=== PATIENT | male | born 1935 | race Caucasian/White ===

== ENCOUNTER 2017-04-27 19:23 | Inpatient (IN) ==
[2017-04-27] MEDS ORDERED: methylPREDNISolone 125 MG/2 ML VIAL IVP ONE (19:46)
[2017-04-27] MEDS ORDERED: Ipratropium/Albuterol Neb 3 ML IH ONE (19:46)
--- NOTE | 2017-04-27 19:49 | Emergency Department Note ---
Disposition Clinical Impression: Acute exacerbation of chronic obstructive airways disease Congestive heart failure Qualifiers: Congestive heart failure type: unspecified congestive heart failure type Congestive heart failure chronicity: acute Qualified Code(s): I50.9 - Heart failure, unspecified Disposition: Admitted As Inpatient Condition: Fair Referrals: Glenda Benjamin DO [Primary Care Provider] - Forms: ED Satisfaction Letter Time of Disposition: 20:38 SOB HPI - General Chief Complaint: ED Shortness of Breath/Dyspnea Stated Complaint: SOB / Congestion Time Seen by Provider: 04/27/17 19:39 Source: patient Mode of arrival: ambulatory Limitations: no limitations Nursing Notes Reviewed: Yes Vital Signs Reviewed: Yes - History of Present Illness 81-year-old with history COPD comes in with a two-week history of shortness of breath. Patient saw his family doctor 2 weeks ago was started on antibiotics. He appeared to improve somewhat and then finished his antibiotics and symptoms of gotten worse. States he just does not feel well he had a cough shortness of breath. Patient has a history COPD and is oxygen dependent wears 2.5 L at home. Denies pain. Anywhere he presents now for evaluation. Pt Subjective Complaint: shortness of breath, cough Onset (ago): day(s) Context: recent illness Severity: moderate Consistency/Duration: constant Improves with: nothing Worsens with: exertion Known history of: COPD Associated symptoms: Reports: cough, wheezing. Denies: chest pain, pain with inspiration, fever Treatment prior to arrival: oxygen Cough present: Yes Cough Description: Involuntary Cough Frequency: Intermittent - Related Data Allergies Allergy/AdvReac Type Severity Reaction Status Date / Time No Known Allergies Allergy Verified 04/27/17 19:27 All systems ED: reviewed and negative except as stated. Constitutional: Denies: fever, chills, weakness, weight change Eyes: Denies: eye pain, eye discharge, vision change ENT ED: Denies: ear pain, throat pain, dental pain, hearing loss, epistaxis, congestion, dysphagia Cardiovascular: Denies: chest pain, palpitations, dyspnea on exertion, edema, syncope Respiratory: Reports: cough, dyspnea, wheezes. Denies: hemoptysis, stridor Gastrointestinal: Denies: abdominal pain, nausea, vomiting, diarrhea, constipation, hematemesis, melena, hematochezia Genitourinary: Denies: urgency, dysuria, frequency, hematuria Musculoskeletal: Denies: back pain, neck pain, arthralgia, myalgia Integumentary: Denies: rash, abrasion, lesions Neurological: Denies: headache, weakness, numbness, paresthesias, confusion, abnormal gait, vertigo Psychiatric: Denies: anxiety, depression, suicidal thoughts, homicidal thoughts , auditory hallucinations, visual hallucinations Endocrine: Denies: fatigue Hematological/Lymphatic: Denies: easy bleeding, easy bruising Allergic/Immunologic: Denies: facial swelling, urticaria Past Medical History - Past Medical History Medical history: Reports: cancer, coronary artery disease, hypertension Psychiatric history: Reports: depression - Social History Smoking Status: Current every day smoker Smokeless Tobacco Status: No Alcohol use: Reports: none Drug use: Reports: none Physical Exam - General Limitations: no limitations General appearance: alert - Head Head exam: atraumatic, normocephalic, normal inspection - Eye Eye exam: Present: normal appearance, PERRL, EOMI - ENT ENT exam: normal exam, normal oropharynx, mucous membranes moist - Neck Neck exam: Present: normal inspection, full ROM, trachea midline - Chest Chest inspection: Present: normal inspection, symmetric chest wall rise - Respiratory Respiratory exam: Present: respiratory distress, accessory muscle use, prolonged expiratory phase - Cardiovascular Cardiovascular exam: Present: regular rate, normal rhythm, normal heart sounds - Abdominal Exam Abdominal exam: Present: soft, Non-Tender. Absent: tenderness, distention, guarding, rebound, rigidity - Extremities Exam Extremities exam: Present: normal inspection, full ROM. Absent: tenderness, pedal edema - Expanded Lower Extremity Exam Neurovascular/Tendon exam: Absent: motor deficit, sensory deficit, tendon deficit - Back Exam Back exam: Present: normal inspection, full ROM. Absent: tenderness - Neurological Exam Neurological exam: Present: alert, oriented X3 Course - Reevaluation(s) Reevaluation #1: 81-year-old with history COPD comes in complaining of increasing shortness of breath. Chest x-ray shows diffuse interstitial pattern failure versus an atypical pneumonia. I reviewed a echocardiogram from this year which showed an EF of 35-40%. We will treat with both antibiotics and diuretic. She will be admitted for further evaluation. Time: 20:37 - Consultations Consultation #1: Discussed with Dr. Martinez, admit Time: 20:44 Vital Signs Temperature 97.3 F L 04/27/17 19:28 Pulse Rate 98 04/27/17 19:28 Respiratory Rate 24 04/27/17 19:28 Blood Pressure 159/77 04/27/17 19:28 O2 Sat by Pulse Oximetry 95 04/27/17 19:28 Temperature 97.3 F L 04/27/17 19:28 Pulse Rate 98 04/27/17 19:28 Respiratory Rate 22 04/27/17 20:28 Blood Pressure 159/77 04/27/17 19:28 O2 Sat by Pulse Oximetry 93 04/27/17 20:28 Oxygen Delivery Oxygen Delivery Nasal Cannula Shortness of Breath/Dyspnea - Lab Data Lab results reviewed: Yes I reviewed the patient's lab results. Result diagrams: 04/27/17 19:58 04/27/17 19:58 Lab Results 04/27/17 04/27/17 04/27/17 Range/Units 19:58 19:58 19:58 WBC 10.0 (4.3-11.1) K/mcL RBC 4.18 L (4.19-5.50) M/mcL Hgb 12.2 L (12.9-16.9) g/dL Hct 37.6 (37.5-50.1) % MCV 90.0 (83.0-100.0) fL MCH 29.2 (28.0-33.3) pg MCHC 32.4 (31.6-35.5) g/dL RDW 13.0 (11.5-14.5) % Plt Count 170 (140-400) K/mcL MPV 9.6 (9.4-12.4) fL Immature Gran % 0.3 (0-4) % Seg Neutrophils % 81.7 % Lymphocytes % 7.8 % Monocytes % 9.9 % Eosinophils % 0.1 % Basophils % 0.2 % Neutrophils # 8.2 (1.6-8.9) K/mcL Lymphocytes # 0.8 (0.6-4.6) K/mcL Monocytes # 1.0 (0.0-1.3) K/mcL Eosinophils # 0.0 (0.0-0.6) K/mcL Basophils # 0.0 (0.0-0.2) K/mcL ABG pH (7.32-7.45) pH Units ABG pCO2 (35-45) mmHg ABG pO2 (85-104) mmHg ABG HCO3 (21-27) mEq/L ABG Total CO2 (20-26) mEq/L ABG O2 Saturation (95-98) % ABG Base Excess (-2.0 to 3.0) mEq/L Liter Flow L/MIN Blood Gas Modality Sodium 137 (136-145) mEq/L Potassium 3.7 (3.5-4.5) mEq/L Chloride 101 (98-109) mEq/L Carbon Dioxide 26 (19-29) mEq/L BUN 21 (8-26) mg/dL Creatinine 0.89 (0.72-1.25) mg/dL Est GFR ( Amer) > 60 (> 60) Est GFR (Non-Af Amer) > 60 (> 60) BUN/Creatinine Ratio 24 (6-26) Glucose 157 H (70-99) mg/dL Calculated Osmolality 290 (280-300) Lactic Acid 0.9 (0.5-2.2) mmol/L Calcium 9.2 (8.6-10.8) mg/dL Troponin I (0-0.03) ng/mL B-Natriuretic Peptide (0-100) pg/mL 04/27/17 04/27/17 04/27/17 Range/Units 19:58 19:58 20:20 WBC (4.3-11.1) K/mcL RBC (4.19-5.50) M/mcL Hgb (12.9-16.9) g/dL Hct (37.5-50.1) % MCV (83.0-100.0) fL MCH (28.0-33.3) pg MCHC (31.6-35.5) g/dL RDW (11.5-14.5) % Plt Count (140-400) K/mcL MPV (9.4-12.4) fL Immature Gran % (0-4) % Seg Neutrophils % % Lymphocytes % % Monocytes % % Eosinophils % % Basophils % % Neutrophils # (1.6-8.9) K/mcL Lymphocytes # (0.6-4.6) K/mcL Monocytes # (0.0-1.3) K/mcL Eosinophils # (0.0-0.6) K/mcL Basophils # (0.0-0.2) K/mcL ABG pH 7.44 (7.32-7.45) pH Units ABG pCO2 51 H (35-45) mmHg ABG pO2 78 L (85-104) mmHg ABG HCO3 35 H (21-27) mEq/L ABG Total CO2 36 H (20-26) mEq/L ABG O2 Saturation 96 (95-98) % ABG Base Excess 9.0 H (-2.0 to 3.0) mEq/L Liter Flow 2 L/MIN Blood Gas Modality NO DATA Sodium (136-145) mEq/L Potassium (3.5-4.5) mEq/L Chloride (98-109) mEq/L Carbon Dioxide (19-29) mEq/L BUN (8-26) mg/dL Creatinine (0.72-1.25) mg/dL Est GFR ( Amer) (> 60) Est GFR (Non-Af Amer) (> 60) BUN/Creatinine Ratio (6-26) Glucose (70-99) mg/dL Calculated Osmolality (280-300) Lactic Acid (0.5-2.2) mmol/L Calcium (8.6-10.8) mg/dL Troponin I 0.01 (0-0.03) ng/mL B-Natriuretic Peptide 541 H (0-100) pg/mL - Radiology Data Radiology results reviewed: Yes I reviewed the patient's radiology results. Chest X-Ray 04/27/17 19:40 IMPRESSION: Slightly increased interstitial markings compared to the prior study, which are nonspecific, but may represent mild interstitial pulmonary edema or atypical infection. Otherwise no focal consolidation identified. D/ / 04/27/2017 20:33:31 Tank Watson MD / [facility] Interpreting Provider: Tank Watson MD - EKG Data EKG attestation: Yes I reviewed and interpreted this EKG. EKG shows normal: Reports: sinus rhythm Rate: Reports: normal Rhythm: Reports: NSR Interpretation: Reports: nonspecific ST-T wave changes
[2017-04-27 20:08] LABS: Basophils % 0.2 %; Eosinophils % 0.1 %; Hematocrit 37.6 % (37.5-50.1); Hemoglobin 12.2 g/dL (12.9-16.9); Immature Granulocytes % 0.3 % (0-4); Lymphocytes # 0.8 K/mcL (0.6-4.6); Lymphocytes % 7.8 %; Mean Corpuscular HGB Conc 32.4 g/dL (31.6-35.5); Mean Corpuscular Hemoglobin 29.2 pg (28.0-33.3); Mean Platelet Volume 9.6 fL (9.4-12.4); Monocytes % 9.9 %; Neutrophils # 8.2 K/mcL (1.6-8.9); Platelet Count 170 K/mcL (140-400); Red Blood Count 4.18 M/mcL (4.19-5.50); Segmented Neutrophils % 81.7 %
[2017-04-27] MEDS ORDERED: Azithromycin 500 MG in D5% in Water 250 ML IVPB ONE ×2 (20:19→23:00)
[2017-04-27 20:21] LABS: BUN/Creatinine Ratio 24 (6-26); Blood Urea Nitrogen 21 mg/dL (8-26); Calcium 9.2 mg/dL (8.6-10.8); Carbon Dioxide 26 mEq/L (19-29); Chloride 101 mEq/L (98-109); Glucose 157 mg/dL (70-99); Osmolality,Calculated 290 (280-300); Potassium 3.7 mEq/L (3.5-4.5); Sodium 137 mEq/L (136-145); eGFR For African Americans > 60 (> 60); eGFR For Non-African Americans > 60 (> 60)
[2017-04-27 20:31] LABS: ABG HCO3 35 mEq/L (21-27); ABG Oxygen Saturation 96 % (95-98); ABG PCO2 51 mmHg (35-45); ABG PH 7.44 pH Units (7.32-7.45); ABG PO2 78 mmHg (85-104); ABG TCO2 36 mEq/L (20-26); Blood Gas Liter Flow 2 L/MIN; Blood Gas Modality NO DATA
[2017-04-27] MEDS ORDERED: Furosemide 40 MG/4 ML VIAL IVP ONE (20:36)
--- NOTE | 2017-04-27 23:25 | Internal Med History&Physical ---
Date of Encounter: 04/27/17 Time of Encounter: 21:45 Assessment and Plan (1) Pneumonia Current visit: Yes Status: Acute Patient's chest x-ray reveals interstitial pattern, possibly suggestive of an atypical pneumonia. -Patient will be started on Zosyn, 3.375 mg. -Patient will also be given IV Solu-Medrol. -DuoNeb's as needed. -Continue to monitor vital signs. Qualifiers: Qualified Code(s): J18.9 - Pneumonia, unspecified organism (2) Congestive heart failure Current visit: Yes Status: Acute Patient's echocardiogram from earlier this year revealed an ejection fraction of 35-40%. -Patient placed on Lasix, 40 mg. Qualifiers: Congestive heart failure type: unspecified congestive heart failure type Congestive heart failure chronicity: acute Qualified Code(s): I50.9 - Heart failure, unspecified (3) Acute exacerbation of chronic obstructive airways disease Current visit: Yes Status: Acute Patient presents with shortness of breath. -Patient admits to being a heavy smoker, pack per day unknown since patient rolls his own cigarettes. -Dependent on 2.5 L of oxygen at home. Internal Medicine - H&P: HPI Chief complaint: Shortness of breath History of present illness: Mr. Chu is a 81 year old male with past medical history of COPD who presented to the ER with the chief complaint of a 2 week history of shortness of breath. Patient saw his family physician 2 weeks ago and was started on antibiotics for 5 days. He was also given steroids, 5 pills. Neither of these were effective long-term and treating the patient's shortness of breath. Patient has had a productive cough with green colored sputum. Nothing improves his condition, and his shortness of breath is worse with exertion. Patient denies having any chest pain or fever. Patient does have COPD and is oxygen dependent on 2.5 L of oxygen at home. Patient's vital signs in the emergency department were as follows: Pressure was 97.3, pulse was 98, respiratory rate was 22, blood pressure was 159/77, and O2 saturation was 93. Chest x-ray was performed in the emergency department and revealed diffuse interstitial pattern , also blue suggestive of atypical pneumonia. Ejection fraction from echocardiogram earlier this year was 35-40%. He currently denies fever, chills , nausea, vomiting, or hemoptysis. Past Med Surg Social Fam HX - Past Medical History Medical history: cancer, coronary artery disease, hypertension Psychiatric history: depression - Past Surgical History Surgical History: coronary bypass (CABG), pacemaker/AICD - Social History Smoking Status: Current every day smoker Smokeless Tobacco Status: No Alcohol use: none Drug use: none - Family History Father Living Status: Age at : 52 Hx Family Cardiac Disorders: Yes ([place]) Mother Living Status: Age at : 62 Hx Family Cardiac Disorders: Yes ([place]) Internal Medicine - H&P: Meds Albuterol Sulfate [Ventolin Hfa] 2 puff IH Q4H PRN 04/27/17 [History] Aspirin Enteric Coated [Aspirin EC] 81 mg PO DAILY 04/27/17 [History] Carvedilol [Coreg] 6.25 mg PO DAILY 04/27/17 [History] Citalopram Hydrobromide [Citalopram HBr] 20 mg PO DAILY 04/27/17 [History] Clopidogrel [Plavix] 75 mg PO DAILY 04/27/17 [History] Finasteride [Proscar] 5 mg PO DAILY 04/27/17 [History] Losartan [Cozaar] 25 mg PO DAILY 04/27/17 [History] Mirtazapine [Remeron] 30 mg PO HS 04/27/17 [History] Pravastatin Sodium [Pravachol] 40 mg PO HS 04/27/17 [History] Tamsulosin [Flomax] 0.4 mg PO DAILY 04/27/17 [History] Tiotropium [Spiriva] 18 mcg IH DAILY 04/27/17 [History] 3 Allergy/AdvReac Type Severity Reaction Status Date / Time No Known Allergies Allergy Verified 04/27/17 19:27 All Systems PM: A 10-system review of systems was performed and is negative for pertinent findings except as documented above in the HPI. - Constitutional Constitutional: no chills, no fatigue, no lethargy, no malaise, no weakness - EENT Nose, mouth and throat: no hoarseness - Cardiovascular Cardiovascular ROS IM: no chest pain, no diaphoresis, no dyspnea, no lightheadedness, no palpitations, no syncope - Respiratory Respiratory: cough, dyspnea, wheezing, chest congestion, excessive phlegm production, change in phlegm color - Constitutional Vitals: Temp Pulse Resp BP Pulse Ox 97.3 F L 98 18 118/49 93 04/27/17 19:28 04/27/17 19:28 04/27/17 22:14 04/27/17 22:14 04/27/17 20:28 - Respiratory Respiratory exam: Present: rales, rhonchi, wheezes, tachypnea. Absent: accessory muscle use, CTAB - Cardiovascular Cardiovascular exam: Present: RRR, +S1, +S2. Absent: diastolic murmur, gallop, rubs, systolic murmur - Psychiatric Psychiatric exam: Present: normal mood Internal Med - H&P Results - Labs CBC & Chem 7: 04/27/17 19:58 04/27/17 19:58
--- NOTE | 2017-04-28 00:17 | Event Note ---
Date of Encounter: 04/28/17 Time of Encounter: 00:15 Patient examined with medical tech. Acute COPD exacerbation likely due to underlying pneumonia in addition to acute congestive heart failure. mention still has increased amount of greenish sputum despite recent antibiotics. We will start Zosyn. Will also give the patient IV steroids nebulizer treatment and IV Lasix. Patient is at risk for the compensation. He is full code. Inpatient admission
[2017-04-28] MEDS: methylPREDNISolone 125 MG/2 ML VIAL IVP SCH ×5 (00:36→23:45)
[2017-04-28] MEDS: Furosemide 40 MG/4 ML VIAL IVP SCH ×2 (00:37→09:23)
[2017-04-28] MEDS: Piperacillin/Tazobactam 3.375 GM in D5% in Water (Mini-Bag+) 100 ML IVPB SCH ×4 (00:37→23:45)
[2017-04-28] MEDS ORDERED: ALPRAZolam 0.5 MG TABLET PO ONE (04:50)
[2017-04-28] MEDS: *HR* Heparin 5,000 UNIT/ML VIAL SQ SCH ×2 (05:11→17:51)
[2017-04-28] MEDS ORDERED: Aminoglycoside Consult 1 EACH MC ONE (08:32)
[2017-04-28] MEDS: Finasteride 5 MG TABLET PO SCH (09:22)
[2017-04-28] MEDS: Aspirin Enteric Coated 81 MG Tablet PO SCH (09:22)
[2017-04-28] MEDS ORDERED: 0.9 % Sodium Chloride 2,000 ML ONE (16:40)
[2017-04-28 17:02] LABS: Basophils % 0.1 %; Hematocrit 43.3 % (37.5-50.1); Immature Granulocytes % 0.4 % (0-4); Lymphocytes % 11.2 %; Mean Corpuscular Hemoglobin 29.4 pg (28.0-33.3); Mean Corpuscular Volume 88.9 fL (83.0-100.0); Monocytes # 0.3 K/mcL (0.0-1.3); Monocytes % 3.4 %; Neutrophils # 7.8 K/mcL (1.6-8.9); Platelet Count 224 K/mcL (140-400); Red Blood Count 4.87 M/mcL (4.19-5.50); Red Cell Distribution Width 12.6 % (11.5-14.5); Segmented Neutrophils % 84.9 %
[2017-04-28 17:07] LABS: Hemoglobin 14.3 g/dL (12.9-16.9)
[2017-04-28] MEDS ORDERED: 0.9 % Sodium Chloride 500 ML IVC ONE (17:08)
[2017-04-28 17:14] LABS: Calcium 10.3 mg/dL (8.6-10.8); Potassium 3.8 mEq/L (3.5-4.5)
[2017-04-28] MEDS: Nicotine 21 MG PATCH.TD24 TD SCH (17:37)
[2017-04-28] MEDS ORDERED: Vancomycin 1,250 MG in D5% in Water 250 ML IVPB ONE (18:00)
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
[2017-04-28] MEDS: Ipratropium/Albuterol Neb 3 ML IH PRN (20:11)
[2017-04-28] MEDS ORDERED: Mirtazapine 15 MG TABLET PO SCH (21:00)
[2017-04-29 03:27] LABS: Basophils % 0.1 %; Hematocrit 37.5 % (37.5-50.1); Immature Granulocytes % 0.5 % (0-4); Lymphocytes # 0.9 K/mcL (0.6-4.6); Lymphocytes % 7.4 %; Mean Corpuscular HGB Conc 33.3 g/dL (31.6-35.5); Mean Corpuscular Hemoglobin 29.1 pg (28.0-33.3); Mean Corpuscular Volume 87.4 fL (83.0-100.0); Mean Platelet Volume 10.2 fL (9.4-12.4); Monocytes # 0.5 K/mcL (0.0-1.3); Monocytes % 4.4 %; Neutrophils # 10.7 K/mcL (1.6-8.9); Platelet Count 207 K/mcL (140-400); Red Blood Count 4.29 M/mcL (4.19-5.50); Red Cell Distribution Width 12.7 % (11.5-14.5); Segmented Neutrophils % 87.6 %
[2017-04-29 03:28] LABS: Hemoglobin 12.5 g/dL (12.9-16.9)
[2017-04-29 03:30] LABS: INR 1.2
[2017-04-29 03:33] LABS: Activated Partial Thrombo Time 25.7 Seconds (26.0-36.0)
[2017-04-29 03:41] LABS: Calcium 9.4 mg/dL (8.6-10.8); Potassium 3.2 mEq/L (3.5-4.5)
[2017-04-29] MEDS ORDERED: *HR* Enoxaparin 40 MG/0.4 ML SYRINGE SQ SCH (06:00)
[2017-04-29] MEDS ORDERED: Vancomycin 1,000 MG in D5% in Water 250 ML IVPB SCH (06:00)
[2017-04-29] MEDS: methylPREDNISolone 125 MG/2 ML VIAL IVP SCH ×4 (07:30→23:52)
[2017-04-29] MEDS: Piperacillin/Tazobactam 3.375 GM in D5% in Water (Mini-Bag+) 100 ML IVPB SCH (07:53)
[2017-04-29] MEDS: Aspirin Enteric Coated 81 MG Tablet PO SCH (07:54)
[2017-04-29] MEDS: Finasteride 5 MG TABLET PO SCH (07:54)
[2017-04-29] MEDS: Nicotine 21 MG PATCH.TD24 TD SCH (07:55)
--- NOTE | 2017-04-29 10:20 | Internal Med Progress Note ---
Date of Encounter: 04/29/17 Time of Encounter: 10:18 - Assessment and plan (1) Pneumonia Current Visit: Yes Status: Acute Assessment and plan: Acute on chronic hypoxic hypercapnic respiratory failure secondary to acute COPD exacerbation due to possible atypical pneumonia Chest x-ray done on arrival shows nonspecific slightly increased interstitial markings that may represent mild pulmonary edema or atypical infection. Telemetry Continuous pulse ox O2 as needed to maintain sats greater than 92% Discontinue Zosyn and vancomycin day 3 Continue Solu-Medrol BiPAP Start Cefepime and azithromycin Qualifiers: Pneumonia type: due to unspecified organism Laterality: unspecified laterality Lung location: unspecified part of lung Qualified Code(s): J18.9 - Pneumonia, unspecified organism (2) Acute renal failure Current Visit: Yes Status: Acute Assessment and plan: Likely secondary to sepsis exacerbated by vancomycin and Zosyn Hold Lasix and start IV fluids Qualifiers: Acute renal failure type: unspecified Qualified Code(s): N17.9 - Acute kidney failure, unspecified (3) Congestive heart failure Current Visit: Yes Status: Acute Assessment and plan: Echocardiogram from September, shows LVEF of 35-40% with moderate global and segmental LV systolic dysfunction, mild MR, mild TR. BNP was elevated over 500. At this time, due to sepsis, Lasix has been held. Continue telemetry Continue to monitor labs and vital signs. Qualifiers: Congestive heart failure type: systolic Congestive heart failure chronicity : acute Qualified Code(s): I50.21 - Acute systolic (congestive) heart failure (4) Acute exacerbation of chronic obstructive airways disease Current Visit: Yes Status: Acute (5) Chronic respiratory failure Current Visit: Yes Status: Acute Assessment and plan: Pt requires supplemental 02 at 2L at home. Qualifiers: Respiratory failure complication: unspecified whether with hypoxia or hypercapnia Qualified Code(s): J96.10 - Chronic respiratory failure, unspecified whether with hypoxia or hypercapnia (6) Sepsis Current Visit: Yes Status: Acute Assessment and plan: pulse rate 110, white blood cell count 12.2 Qualifiers: Sepsis type: sepsis due to unspecified organism Qualified Code(s): A41.9 - Sepsis, unspecified organism - Subjective Interval history: Feeling short of breath, appears to be very dehydrated, denies any chest pain, abdominal pain, no dysuria or diarrhea, no fevers - Constitutional Vitals: Temp Pulse Resp BP Pulse Ox 96.7 F L 71 16 92/50 93 04/29/17 07:59 04/29/17 07:59 04/29/17 07:59 04/29/17 07:59 04/29/17 07:59 General appearance: Present: A&O X 3, underweight (Very hard of hearing) - Head Head exam: Present: atraumatic, normocephalic - Eye Eye exam: Present: PERRL, conjuntiva pink, sclera anicteric Pupils: Present: PERRL - Neck Neck exam general surgery: Present: supple, trachea midline. Absent: lymphadenopathy - Respiratory Respiratory exam: Present: CTAB, wheezes (Diffuse wheezing). Absent: accessory muscle use, rales, rhonchi - Cardiovascular Cardiovascular exam: Present: RRR, +S1, +S2. Absent: diastolic murmur, gallop, rubs, systolic murmur - GI/Abdominal GI/Abdominal exam: Present: normal bowel sounds, soft, no peritoneal signs. Absent: distended, tenderness - Extremities Exam Extremities exam: Present: warm, radial pulses palpable and symmetrical. Absent : calf tenderness, cyanotic, pedal edema - Neurological Exam Neurological exam: Present: CN II-XII intact, oriented X3, no focal deficits. Absent: pronater drift, facial droop, speech deficit - Skin Skin exam: Present: dry, intact Internal Medicine: Result - Labs CBC & Chem 7: 04/29/17 02:54 04/29/17 02:54 Labs: Short CBC 04/29/17 Range/Units 02:54 WBC 12.2 H (4.3-11.1) K/mcL Hgb 12.5 L D (12.9-16.9) g/dL Hct 37.5 (37.5-50.1) % Plt Count 207 (140-400) K/mcL Neutrophils # 10.7 H (1.6-8.9) K/mcL BMP 04/29/17 02:54 Sodium 140 Potassium 3.2 L Chloride 98 Carbon Dioxide 31 H BUN 48 H D Creatinine 1.74 H Glucose 228 H Calcium 9.4 - ABG Interpretation ABG results: ABG ABG pH 7.44 pH Units (7.32-7.45) 04/27/17 20:20 ABG pCO2 51 mmHg (35-45) H 04/27/17 20:20 ABG pO2 78 mmHg (85-104) L 04/27/17 20:20 ABG O2 Saturation 96 % (95-98) 04/27/17 20:20 PT/INR, D-dimer PT 13.0 Seconds (9.4-12.1) H 04/29/17 02:54 Consult Discharge Plan - Plan Referrals: Glenda Benjamin DO [Primary Care Provider] -
[2017-04-29] MEDS ORDERED: *HR* Dextrose 50 % in Water (Syg) 50 ML SYRINGE IVP PRN (10:24)
[2017-04-29] MEDS ORDERED: D5% in Water 1,000 ML IVC PRN (10:24)
[2017-04-29] MEDS ORDERED: Dextrose Gel 15 GM PO PRN ×2 (10:24)
[2017-04-29] MEDS: Insulin LISPRO 300 UNITS/3 ML VIAL SQ SCH ×2 (11:48→17:04)
[2017-04-29] MEDS: 0.9 % Sodium Chloride 1,000 ML IVC SCH (11:51)
[2017-04-29] MEDS: Cefepime HCl 1,000 MG in D5% in Water (Mini-Bag+) 100 ML IVPB SCH ×2 (11:56→17:06)
[2017-04-29] MEDS: Azithromycin 500 MG in D5% in Water 250 ML IVPB SCH (11:58)
--- NOTE | 2017-04-29 17:55 | Electrocardiograph Report ---
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
--- NOTE | 2017-04-29 19:05 | Electrocardiograph Report ---
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
[2017-04-30 04:48] LABS: Hematocrit 25.6 % (37.5-50.1); Mean Corpuscular HGB Conc 32.8 g/dL (31.6-35.5); Mean Corpuscular Hemoglobin 29.9 pg (28.0-33.3); Mean Corpuscular Volume 91.1 fL (83.0-100.0); Mean Platelet Volume 10.1 fL (9.4-12.4); Platelet Count 143 K/mcL (140-400); Red Blood Count 2.81 M/mcL (4.19-5.50); Red Cell Distribution Width 12.8 % (11.5-14.5)
[2017-04-30 04:58] LABS: Hemoglobin 8.4 g/dL (12.9-16.9)
[2017-04-30 05:05] LABS: BUN/Creatinine Ratio 43 (6-26); Blood Urea Nitrogen 47 mg/dL (8-26); Calcium 8.8 mg/dL (8.6-10.8); Carbon Dioxide 27 mEq/L (19-29); Chloride 107 mEq/L (98-109); Glucose 187 mg/dL (70-99); Osmolality,Calculated 309 (280-300); Potassium 3.9 mEq/L (3.5-4.5); Sodium 141 mEq/L (136-145); eGFR For African Americans > 60 (> 60); eGFR For Non-African Americans > 60 (> 60)
[2017-04-30 05:17] LABS: Hemoglobin A1C 6.2 %
[2017-04-30] MEDS ORDERED: *HR* Enoxaparin 30 MG/0.3 ML SYRINGE SQ SCH (06:00)
[2017-04-30] MEDS: methylPREDNISolone 125 MG/2 ML VIAL IVP SCH (06:20)
[2017-04-30] MEDS: Cefepime HCl 1,000 MG in D5% in Water (Mini-Bag+) 100 ML IVPB SCH ×2 (06:20→15:20)
[2017-04-30] MEDS: 0.9 % Sodium Chloride 1,000 ML IVC SCH (06:21)
[2017-04-30] MEDS: Aspirin Enteric Coated 81 MG Tablet PO SCH (08:04)
[2017-04-30] MEDS: Furosemide 40 MG/4 ML VIAL IVP SCH (08:05)
[2017-04-30] MEDS: Finasteride 5 MG TABLET PO SCH (08:06)
[2017-04-30] MEDS: Nicotine 21 MG PATCH.TD24 TD SCH (08:06)
--- NOTE | 2017-04-30 08:17 | Internal Med Progress Note ---
Date of Encounter: 04/30/17 Time of Encounter: 08:14 - Assessment and plan (1) Pneumonia Current Visit: Yes Status: Acute Assessment and plan: Acute on chronic hypoxic hypercapnic respiratory failure secondary to acute COPD exacerbation due to possible atypical pneumonia Chest x-ray done on arrival showed nonspecific slightly increased interstitial markings that may represent mild pulmonary edema or atypical infection. CT scan of the chest showed possible early pneumonia with nodular infiltrates in the right middle lobe and small bilateral pleural effusions Telemetry Continuous pulse ox O2 as needed to maintain sats greater than 92% Discontinued Zosyn and vancomycin day 3 Continue Solu-Medrol BiPAP Continue Cefepime and azithromycin day to Qualifiers: Pneumonia type: due to unspecified organism Laterality: unspecified laterality Lung location: unspecified part of lung Qualified Code(s): J18.9 - Pneumonia, unspecified organism (2) Acute renal failure Current Visit: Yes Status: Acute Assessment and plan: Likely secondary to sepsis exacerbated by vancomycin and Zosyn Hold Lasix and discontinue IV fluids Qualifiers: Acute renal failure type: unspecified Qualified Code(s): N17.9 - Acute kidney failure, unspecified (3) Congestive heart failure Current Visit: Yes Status: Acute Assessment and plan: Echocardiogram from September, shows LVEF of 35-40% with moderate global and segmental LV systolic dysfunction, mild MR, mild TR. BNP was elevated over 500. At this time, due to sepsis, Lasix has been held. Continue telemetry Continue to monitor labs and vital signs. Continue holding Lasix for now Qualifiers: Congestive heart failure type: systolic Congestive heart failure chronicity : acute Qualified Code(s): I50.21 - Acute systolic (congestive) heart failure (4) Acute exacerbation of chronic obstructive airways disease Current Visit: Yes Status: Acute (5) Chronic respiratory failure Current Visit: Yes Status: Acute Assessment and plan: Pt requires supplemental 02 at 2L at home. Qualifiers: Respiratory failure complication: unspecified whether with hypoxia or hypercapnia Qualified Code(s): J96.10 - Chronic respiratory failure, unspecified whether with hypoxia or hypercapnia (6) Sepsis Current Visit: Yes Status: Acute Assessment and plan: pulse rate 110, white blood cell count 12.2 Qualifiers: Sepsis type: sepsis due to unspecified organism Qualified Code(s): A41.9 - Sepsis, unspecified organism (7) Anemia Current Visit: Yes Status: Acute Assessment and plan: Possible lab error versus dilutional anemia Repeat H&H Qualifiers: Anemia type: iron deficiency Iron deficiency anemia type: unspecified iron deficiency Qualified Code(s): D50.9 - Iron deficiency anemia, unspecified - Subjective Interval history: Feeling less short of breath, appears to be less dehydrated, denies any chest pain, abdominal pain, no dysuria or diarrhea, no fevers, still requiring 6 L of oxygen - Constitutional Vitals: Temp Pulse Resp BP Pulse Ox 97.5 F L 76 20 153/84 96 04/30/17 07:45 04/30/17 07:45 04/30/17 07:45 04/30/17 04:29 04/30/17 07:45 General appearance: Present: A&O X 3, underweight (Very hard of hearing) - Head Head exam: Present: atraumatic, normocephalic - Eye Eye exam: Present: PERRL, conjuntiva pink, sclera anicteric Pupils: Present: PERRL - Neck Neck exam general surgery: Present: supple, trachea midline. Absent: lymphadenopathy - Respiratory Respiratory exam: Present: CTAB, wheezes (Mild diffuse wheezing). Absent: accessory muscle use, rales, rhonchi - Cardiovascular Cardiovascular exam: Present: RRR, +S1, +S2. Absent: diastolic murmur, gallop, rubs, systolic murmur - GI/Abdominal GI/Abdominal exam: Present: normal bowel sounds, soft, no peritoneal signs. Absent: distended, tenderness - Extremities Exam Extremities exam: Present: warm, radial pulses palpable and symmetrical. Absent : calf tenderness, cyanotic, pedal edema - Neurological Exam Neurological exam: Present: CN II-XII intact, oriented X3, no focal deficits. Absent: pronater drift, facial droop, speech deficit - Skin Skin exam: Present: dry, intact Internal Medicine: Result - Labs CBC & Chem 7: 04/30/17 04:09 04/30/17 04:09 Labs: Short CBC 04/30/17 Range/Units 04:09 WBC 10.8 (4.3-11.1) K/mcL Hgb 8.4 L D (12.9-16.9) g/dL Hct 25.6 L (37.5-50.1) % Plt Count 143 (140-400) K/mcL BMP 04/30/17 04:09 Sodium 141 Potassium 3.9 Chloride 107 Carbon Dioxide 27 BUN 47 H Creatinine 1.10 Glucose 187 H Calcium 8.8 - ABG Interpretation ABG results: ABG ABG pH 7.44 pH Units (7.32-7.45) 04/27/17 20:20 ABG pCO2 51 mmHg (35-45) H 04/27/17 20:20 ABG pO2 78 mmHg (85-104) L 04/27/17 20:20 ABG O2 Saturation 96 % (95-98) 04/27/17 20:20 PT/INR, D-dimer PT 13.0 Seconds (9.4-12.1) H 04/29/17 02:54 - Impressions Impressions Chest CT 04/29/17 10:16 IMPRESSION: 1. Nodular infiltrates noted in the right middle lobe, concerning for early pneumonia. 2. Small bilateral pleural effusions with atelectasis in the lung bases. 3. Extensive atherosclerotic disease. D/ / 04/29/2017 11:40:46 Bull Braun MD / Ofelia Marshall Interpreting Provider: Bull Braun MD Consult Discharge Plan - Plan Referrals: Glenda Benjamin DO [Primary Care Provider] -
[2017-04-30] MEDS: MethylPREDNISolone 40 MG/ML VIAL IVP SCH ×3 (09:56→20:28)
[2017-04-30] MEDS: Azithromycin 500 MG in D5% in Water 250 ML IVPB SCH (10:02)
[2017-04-30] MEDS: Insulin LISPRO 300 UNITS/3 ML VIAL SQ SCH ×3 (10:33→16:30)
[2017-04-30] MEDS: Ipratropium/Albuterol Neb 3 ML IH PRN (11:55)
[2017-04-30 14:15] LABS: Hematocrit 37.9 % (37.5-50.1)
[2017-04-30 14:16] LABS: Hemoglobin 12.7 g/dL (12.9-16.9)
[2017-05-01] MEDS: Cefepime HCl 1,000 MG in D5% in Water (Mini-Bag+) 100 ML IVPB SCH (05:30)
[2017-05-01 05:55] LABS: Hematocrit 36.2 % (37.5-50.1); Hemoglobin 12.5 g/dL (12.9-16.9); Mean Corpuscular HGB Conc 34.5 g/dL (31.6-35.5); Mean Corpuscular Hemoglobin 30.6 pg (28.0-33.3); Mean Corpuscular Volume 88.7 fL (83.0-100.0); Mean Platelet Volume 9.7 fL (9.4-12.4); Platelet Count 214 K/mcL (140-400); Red Blood Count 4.08 M/mcL (4.19-5.50)
[2017-05-01 05:57] LABS: BUN/Creatinine Ratio 45 (6-26); Blood Urea Nitrogen 39 mg/dL (8-26); Calcium 9.2 mg/dL (8.6-10.8); Carbon Dioxide 31 mEq/L (19-29); Chloride 104 mEq/L (98-109); Glucose 173 mg/dL (70-99); Osmolality,Calculated 314 (280-300); Potassium 3.6 mEq/L (3.5-4.5); Sodium 145 mEq/L (136-145); eGFR For African Americans > 60 (> 60); eGFR For Non-African Americans > 60 (> 60)
[2017-05-01] MEDS: Furosemide 40 MG/4 ML VIAL IVP SCH (07:47)
[2017-05-01] MEDS: Finasteride 5 MG TABLET PO SCH (07:47)
[2017-05-01] MEDS: Nicotine 21 MG PATCH.TD24 TD SCH (07:48)
[2017-05-01] MEDS: MethylPREDNISolone 40 MG/ML VIAL IVP SCH (07:49)
[2017-05-01] MEDS: Insulin LISPRO 300 UNITS/3 ML VIAL SQ SCH ×2 (07:51→11:08)
[2017-05-01 10:28] VITALS: BP 138/84
[2017-05-01] MEDS: Azithromycin 500 MG in D5% in Water 250 ML IVPB SCH (11:40)
--- NOTE | 2017-05-01 15:04 | Discharge Summary ---
Date of Encounter: 05/01/17 Time of Encounter: 15:04 - Discharge Diagnosis (1) Pneumonia Priority: Primary Status: Acute Comments: Acute on chronic hypoxic hypercapnic respiratory failure secondary to acute COPD exacerbation due to sepsis from possible atypical pneumonia Qualifiers: Pneumonia type: due to unspecified organism Laterality: unspecified laterality Lung location: unspecified part of lung Qualified Code(s): J18.9 - Pneumonia, unspecified organism (2) Acute renal failure Priority: Primary Status: Acute Comments: Likely secondary to sepsis exacerbated by vancomycin and Zosyn Qualifiers: Acute renal failure type: unspecified Qualified Code(s): N17.9 - Acute kidney failure, unspecified (3) Congestive heart failure Priority: Secondary Status: Acute Qualifiers: Congestive heart failure type: systolic Congestive heart failure chronicity : acute Qualified Code(s): I50.21 - Acute systolic (congestive) heart failure (4) Acute exacerbation of chronic obstructive airways disease Priority: Primary Status: Acute (5) Chronic respiratory failure Priority: Secondary Status: Acute Qualifiers: Respiratory failure complication: unspecified whether with hypoxia or hypercapnia Qualified Code(s): J96.10 - Chronic respiratory failure, unspecified whether with hypoxia or hypercapnia (6) Sepsis Priority: Primary Status: Acute Qualifiers: Sepsis type: sepsis due to unspecified organism Qualified Code(s): A41.9 - Sepsis, unspecified organism (7) Anemia Priority: Secondary Status: Acute Qualifiers: Anemia type: iron deficiency Iron deficiency anemia type: unspecified iron deficiency Qualified Code(s): D50.9 - Iron deficiency anemia, unspecified (8) Systolic CHF Priority: Secondary Status: Acute Qualifiers: Congestive heart failure chronicity: chronic Qualified Code(s): I50.22 - Chronic systolic (congestive) heart failure - Discharge Medications Prescriptions: Furosemide [Lasix] 20 mg PO DAILY #30 tablet Potassium Chloride 8 meq PO DAILY #30 tablet.er predniSONE [PredniSONE] 10 mg PO DAILY 12 Days tablet Home Medications: Albuterol Sulfate [Ventolin Hfa] 2 puff IH Q4H PRN 04/27/17 [History] Aspirin Enteric Coated [Aspirin EC] 81 mg PO DAILY 04/27/17 [History] Carvedilol [Coreg] 6.25 mg PO DAILY 04/27/17 [History] Citalopram Hydrobromide [Citalopram HBr] 20 mg PO DAILY 04/27/17 [History] Clopidogrel [Plavix] 75 mg PO DAILY 04/27/17 [History] Finasteride [Proscar] 5 mg PO DAILY 04/27/17 [History] Losartan [Cozaar] 25 mg PO DAILY 04/27/17 [History] Mirtazapine [Remeron] 30 mg PO HS 04/27/17 [History] Pravastatin Sodium [Pravachol] 40 mg PO HS 04/27/17 [History] Tamsulosin [Flomax] 0.4 mg PO DAILY 04/27/17 [History] Tiotropium [Spiriva] 18 mcg IH DAILY 04/27/17 [History] Furosemide [Lasix] 20 mg PO DAILY #30 tablet 05/01/17 [Rx] Potassium Chloride 8 meq PO DAILY #30 tablet.er 05/01/17 [Rx] predniSONE [PredniSONE] 10 mg PO DAILY 12 Days tablet 05/01/17 [Rx] Allergies/Adverse Reactions: 3 Allergy/AdvReac Type Severity Reaction Status Date / Time No Known Allergies Allergy Verified 04/27/17 19:27 Procedures/tests Complete & Pending: Procedures Performed prior 72 hours Category Date Time Status CT chest wo con [CT] Stat Cat Scan 04/29/17 10:16 Completed ECG 12 lead ECG [ECG] Routine Y 04/28/17 18:48 Completed Date of admission: 04/28/17 18:00 Primary care physician: Selam Almendarez Consults: 04/30/17 11:37 Consult to Physical Therapy [CONS] Routine Comment: Evaluate, develop and implement POC Reason for Consult: lives home alone, weakness OT [Consult to Occupational Therapy] [CONS] Routine Comment: Evaluate, develop and implement POC Reason for Consult: lives home alone, weakness - Patient Status Disposition: Home Health Service Condition: Fair Overall status at discharge: patient is back to baseline - Discharge Instructions Follow Up With: Glenda Benjamin DO [Primary Care Provider] - 05/08/17 1:45 pm (SENT WEB REQUEST ON 04-30-17 @ 2552 TO SEE IF WE COULD CHANGE FROM OV TO FU) Additional Instructions: Follow-up with primary care physician within the next 7 days. Continue Lasix 20 mg daily with potassium supplements. Taper prednisone. Continue oxygen at home - Diet and Activity Activity: increase activity as tolerated, wear oxygen at all times Diet: low fat, low cholesterol Hospital course: Mr. Chu is a 81 year old male with past medical history of COPD O 2 dep, tobacco abuse, systolic CHF, CAD, hypertension, who presented to the ER with the chief complaint of a 2 week history of shortness of breath. Patient saw his family physician 2 weeks prior to admission and was started on antibiotics for 5 days. He was also given steroids, 5 pills. Neither of these were effective long-term and treating the patient's shortness of breath. Patient has had a productive cough with green colored sputum. Nothing improved his condition, and his shortness of breath was worse with exertion. Patient denied having any chest pain or fever. Patient does have COPD and is oxygen dependent on 2.5 L of oxygen at home. Chest x-ray was performed in the emergency department and revealed diffuse interstitial pattern, also blue suggestive of atypical pneumonia. Ejection fraction from echocardiogram earlier this year was 35-40%. ABG showed a pH of 7.44 PCO2 of 51 and a PO2 of 78. The patient was started on Zosyn and vancomycin which were discontinued as his creatinine increased to 1.74, he was started on cefepime and azithromycin the latest to cover atypical pneumonia. The patient has improved considerably, his creatinine is 0.87, also he was started on Lasix IV 40 mg daily, potassium was repleted. Patient was given the option to stay an additional day but he feels much better and is ready to go home. Completed 5 days of azithromycin and 3 days of cefepime. Time spent discussing smoking cessation with patient: 3 to 10 minutes - Time Spent with Patient Total time spent providing and/or coordinating discharge services: Greater than 30 minutes (40 min) - Constitutional Vitals: Temp Pulse Resp BP Pulse Ox 97.8 F 68 22 138/84 99 05/01/17 08:00 05/01/17 13:54 05/01/17 10:25 05/01/17 10:25 05/01/17 10:25 General appearance: Present: A&O X 3, underweight (Very hard of hearing) - Head Head exam: Present: atraumatic, normocephalic - Eye Eye exam: Present: PERRL, conjuntiva pink, sclera anicteric Pupils: Present: PERRL - Neck Neck exam general surgery: Present: supple, trachea midline. Absent: lymphadenopathy - Respiratory Respiratory exam: Present: decreased breath sounds, CTAB. Absent: accessory muscle use, rales, rhonchi, wheezes - Cardiovascular Cardiovascular exam: Present: RRR, +S1, +S2. Absent: diastolic murmur, gallop, rubs, systolic murmur - GI/Abdominal GI/Abdominal exam: Present: normal bowel sounds, soft, no peritoneal signs. Absent: distended, tenderness - Extremities Exam Extremities exam: Present: warm, radial pulses palpable and symmetrical. Absent : calf tenderness, cyanotic, pedal edema - Neurological Exam Neurological exam: Present: CN II-XII intact, oriented X3, no focal deficits. Absent: pronater drift, facial droop, speech deficit - Skin Skin exam: Present: dry, intact - VTE Documentation of Mechanical Device: Intermittent pneumatic compression device
--- NOTE | 2017-05-01 15:21 | Physician Discharge Referral ---
Home Health/Hosp Referral Info Transfer to: Home Health Provider in Charge Post Discharge: PCP - Diagnosis (1) Pneumonia Status: Acute (2) Acute renal failure Status: Acute (3) Congestive heart failure Status: Acute (4) Acute exacerbation of chronic obstructive airways disease Status: Acute (5) Chronic respiratory failure Status: Acute (6) Sepsis Status: Acute (7) Anemia Status: Acute (8) Systolic CHF Status: Acute - Respiratory Orders Oxygen / L per min (2.5 L/m) Smoking Cessation: Smoking cessation has been advised. For more information, call the [place] Tobacco Quit Line at 7-252-KIMA-NOW. - Diet/Nutrition Diet/Nutrition Orders: No Added Salt (PUNEET) - Activity Activity: List: Follow-up with primary care physician within the next 7 days. Continue Lasix 20 mg daily with potassium supplements. Taper prednisone. Continue oxygen at home - Services Needed Following services are medically necessary services: Physical Therapy - Transfer Medications Prescriptions: Furosemide [Lasix] 20 mg PO DAILY #30 tablet Potassium Chloride 8 meq PO DAILY #30 tablet.er predniSONE [PredniSONE] 10 mg PO DAILY 12 Days tablet Home Medications: Albuterol Sulfate [Ventolin Hfa] 2 puff IH Q4H PRN 04/27/17 [History] Aspirin Enteric Coated [Aspirin EC] 81 mg PO DAILY 04/27/17 [History] Carvedilol [Coreg] 6.25 mg PO DAILY 04/27/17 [History] Citalopram Hydrobromide [Citalopram HBr] 20 mg PO DAILY 04/27/17 [History] Clopidogrel [Plavix] 75 mg PO DAILY 04/27/17 [History] Finasteride [Proscar] 5 mg PO DAILY 04/27/17 [History] Losartan [Cozaar] 25 mg PO DAILY 04/27/17 [History] Mirtazapine [Remeron] 30 mg PO HS 04/27/17 [History] Pravastatin Sodium [Pravachol] 40 mg PO HS 04/27/17 [History] Tamsulosin [Flomax] 0.4 mg PO DAILY 04/27/17 [History] Tiotropium [Spiriva] 18 mcg IH DAILY 04/27/17 [History] Furosemide [Lasix] 20 mg PO DAILY #30 tablet 05/01/17 [Rx] Potassium Chloride 8 meq PO DAILY #30 tablet.er 05/01/17 [Rx] predniSONE [PredniSONE] 10 mg PO DAILY 12 Days tablet 05/01/17 [Rx] Allergies/Adverse Reactions: 3 Allergy/AdvReac Type Severity Reaction Status Date / Time No Known Allergies Allergy Verified 04/27/17 19:27 Certification: Further, I certify that my clinical findings support that this patient is homebound (i.e. absences from home require considerable and taxing effort and are for medical reasons or latter-day services or infrequently or short duration when for other reasons) because: Homebound Reason: Patient requires assistance of a person or device to safely leave home Attestation: My signature below is to certify that this patient is under my care and that I, or nurse practitioner, or a physician's assistant vice president working with me, has a face-to -face encounter with this patient.
[2017-05-02] MEDS ORDERED: Azithromycin 250 MG TABLET PO SCH (09:00)
== END 2017-05-01 16:39 | disposition home health service (06) | DRG 871 ==
LOC: EMEROO 19:23 → 3BNU 19:23 → 2NNU 04-28 17:23 → SUATTDRO 04-28 18:00
PROVIDERS: ADMIT Registered Nurse; ATTEND Internal Medicine

== ENCOUNTER 2017-11-16 14:34 | Inpatient (IN) ==
[2017-11-16] MEDS ORDERED: Ipratropium/Albuterol Neb 3 ML IH ONE ×2 (14:44→16:05)
--- NOTE | 2017-11-16 14:51 | Emergency Department Note ---
Disposition Clinical Impression: COPD exacerbation, Cardiac enzymes elevated Pneumonia Qualifiers: Pneumonia type: due to unspecified organism Laterality: left Lung location: lower lobe of lung Qualified Code(s): J18.1 - Lobar pneumonia, unspecified organism Disposition: Admitted As Inpatient Condition: Fair Referrals: Glenda Benjamin DO [Primary Care Provider] - Forms: ED Satisfaction Letter Time of Disposition: 16:08 SOB HPI - General Chief Complaint: ED Weakness Time Seen by Provider: 11/16/17 14:42 Source: EMS Mode of arrival: EMS Limitations: no limitations Nursing Notes Reviewed: Yes Vital Signs Reviewed: Yes - History of Present Illness 81-year-old whose had progressive dyspnea and generalized weakness for the last week. He went to his doctor's office for an appointment but apparently he was about 5 or 10 minutes late and they would not see him. Comes up gotten progressively worse. Pt Subjective Complaint: shortness of breath Onset (ago): day(s) Context: recent illness Severity: moderate Consistency/Duration: constant Improves with: nothing Worsens with: exertion Known history of: COPD Associated symptoms: Reports: other (Generalized weakness) Cough Frequency: Intermittent - Related Data Home Medications Medication Instructions Recorded Confirmed Albuterol Sulfate [Ventolin Hfa] 2 puff IH Q4H PRN 04/27/17 04/27/17 Aspirin Enteric Coated [Aspirin EC] 81 mg PO DAILY 04/27/17 04/27/17 Carvedilol [Coreg] 6.25 mg PO DAILY 04/27/17 04/27/17 Citalopram Hydrobromide 20 mg PO DAILY 04/27/17 04/27/17 [Citalopram HBr] Clopidogrel [Plavix] 75 mg PO DAILY 04/27/17 04/27/17 Finasteride [Proscar] 5 mg PO DAILY 04/27/17 04/27/17 Losartan [Cozaar] 25 mg PO DAILY 04/27/17 04/27/17 Mirtazapine [Remeron] 30 mg PO HS 04/27/17 04/27/17 Pravastatin Sodium [Pravachol] 40 mg PO HS 04/27/17 04/27/17 Tamsulosin [Flomax] 0.4 mg PO DAILY 04/27/17 04/27/17 Tiotropium [Spiriva] 18 mcg IH DAILY 04/27/17 04/27/17 Previous Rx's Medication Instructions Recorded Furosemide [Lasix] 20 mg PO DAILY #30 tablet 05/01/17 Potassium Chloride 8 meq PO DAILY #30 tablet.er 05/01/17 predniSONE [PredniSONE] 10 mg PO DAILY 12 Days tablet 05/01/17 Ondansetron ODT [Zofran ODT] 4 mg SL Q4HR PRN #6 tab.rapdis 11/08/17 Allergies Allergy/AdvReac Type Severity Reaction Status Date / Time No Known Allergies Allergy Verified 11/08/17 18:00 All systems ED: reviewed and negative except as stated. Constitutional: Denies: fever, chills, weakness, weight change Eyes: Denies: eye pain, eye discharge, vision change ENT ED: Denies: ear pain, throat pain, dental pain, hearing loss, epistaxis, congestion, dysphagia Cardiovascular: Denies: chest pain, palpitations, dyspnea on exertion, edema, syncope Respiratory: Reports: cough, dyspnea. Denies: wheezes, hemoptysis, stridor Gastrointestinal: Denies: abdominal pain, nausea, vomiting, diarrhea, constipation, hematemesis, melena, hematochezia Genitourinary: Denies: urgency, dysuria, frequency, hematuria Musculoskeletal: Denies: back pain, neck pain, arthralgia, myalgia Integumentary: Denies: rash, abrasion, lesions Neurological: Denies: headache, weakness, numbness, paresthesias, confusion, abnormal gait, vertigo Psychiatric: Denies: anxiety, depression, suicidal thoughts, homicidal thoughts , auditory hallucinations, visual hallucinations Endocrine: Denies: fatigue Hematological/Lymphatic: Denies: easy bleeding, easy bruising Allergic/Immunologic: Denies: facial swelling, urticaria Past Medical History - Past Medical History Medical history: Reports: COPD, coronary artery disease, dementia, hypertension Surgical history: Reports: coronary bypass (CABG), pacemaker/AICD Psychiatric history: Reports: depression - Social History Smoking Status: Current every day smoker Smokeless Tobacco Status: No Alcohol use: Reports: occasionally Drug use: Reports: none Physical Exam - General Limitations: no limitations General appearance: alert, in no apparent distress - Head Head exam: atraumatic, normocephalic, normal inspection - Eye Eye exam: Present: normal appearance, PERRL, EOMI - ENT ENT exam: normal exam, normal oropharynx, mucous membranes moist - Neck Neck exam: Present: normal inspection, full ROM, trachea midline - Chest Chest inspection: Present: normal inspection, symmetric chest wall rise - Respiratory Respiratory exam: Present: wheezes, prolonged expiratory phase - Cardiovascular Cardiovascular exam: Present: regular rate, normal rhythm, normal heart sounds - Abdominal Exam Abdominal exam: Present: soft, Non-Tender. Absent: tenderness, distention, guarding, rebound, rigidity - Extremities Exam Extremities exam: Present: normal inspection, full ROM. Absent: tenderness, pedal edema - Expanded Lower Extremity Exam Neurovascular/Tendon exam: Absent: motor deficit, sensory deficit, tendon deficit Gait: observed and normal - Back Exam Back exam: Present: normal inspection, full ROM. Absent: tenderness - Neurological Exam Neurological exam: Present: alert, oriented X3 - Psychiatric Psychiatric exam: Present: normal affect, normal mood - Skin Skin exam: Present: warm, dry, intact, normal color Course - Reevaluation(s) Reevaluation #1: 81-year-old who comes in with cough congestion generalized weakness history COPD. Workup here shows a left lower lobe infiltrate. Lactate is normal vitals are stable. Patient will be admitted. Time: 16:05 - Consultations Consultation #1: Discussed with , admit. Time: 16:25 Vital Signs Temperature 98.3 F 11/16/17 14:37 Pulse Rate 84 11/16/17 14:37 Respiratory Rate 20 11/16/17 14:37 Blood Pressure 122/60 11/16/17 14:37 O2 Sat by Pulse Oximetry 91 11/16/17 14:37 Temperature 98.3 F 11/16/17 14:37 Pulse Rate 84 11/16/17 14:37 Respiratory Rate 20 11/16/17 16:11 Blood Pressure 122/60 11/16/17 14:37 O2 Sat by Pulse Oximetry 90 11/16/17 16:11 Oxygen Delivery Oxygen Delivery Nasal Cannula Shortness of Breath/Dyspnea - Lab Data Lab results reviewed: Yes I reviewed the patient's lab results. Result diagrams: 11/16/17 14:43 11/16/17 14:43 Lab Results 11/16/17 11/16/17 11/16/17 Range/Units 14:43 14:43 14:43 WBC 8.3 (4.3-11.1) K/mcL RBC 3.69 L (4.19-5.50) M/mcL Hgb 11.0 L (12.9-16.9) g/dL Hct 33.3 L (37.5-50.1) % MCV 90.2 (83.0-100.0) fL MCH 29.8 (28.0-33.3) pg MCHC 33.0 (31.6-35.5) g/dL RDW 14.3 (11.5-14.5) % Plt Count 202 (140-400) K/mcL MPV 9.7 (9.4-12.4) fL Immature Gran % 0.4 (0-4) % Seg Neutrophils % 67.4 % Lymphocytes % 14.9 % Monocytes % 17.2 % Eosinophils % 0.0 % Basophils % 0.1 % Neutrophils # 5.6 (1.6-8.9) K/mcL Lymphocytes # 1.2 (0.6-4.6) K/mcL Monocytes # 1.4 H (0.0-1.3) K/mcL Eosinophils # 0.0 (0.0-0.6) K/mcL Basophils # 0.0 (0.0-0.2) K/mcL Sodium 138 (136-145) mEq/L Potassium 3.4 L (3.5-5.1) mEq/L Chloride 105 (98-107) mEq/L Carbon Dioxide 25 (23-29) mEq/L BUN 26 H (8-23) mg/dL Creatinine 0.81 (0.70-1.30) mg/dL Est GFR ( Amer) > 60 (> 60) Est GFR (Non-Af Amer) > 60 (> 60) BUN/Creatinine Ratio 32 H (6-26) Glucose 124 H (70-105) mg/dL Calculated Osmolality 292 (280-300) Lactic Acid 0.7 (0.5-2.2) mmol/L Calcium 8.2 L (8.6-10.3) mg/dL Troponin I 0.04 H* (< 0.04) ng/mL Urine Color (Yellow) Urine Clarity (Clear) Urine pH (5.0-8.0) pH Units Ur Specific [place] (1.010-1.025) Urine Protein (Neg-Trace) mg/dL Urine Glucose (UA) (Normal) mg/dL Urine Ketones (Negative) mg/dL Urine Blood (Negative) Urine Nitrite (Negative) Urine Bilirubin (Negative) Urine Urobilinogen (Normal) mg/dL Ur Leukocyte Esterase (Negative) Urine Microscopic RBC (0-3) per hpf Urine Microscopic WBC (0-3) per hpf Ur Squamous Epith Cells (None-Few) per lpf Urine Bacteria (None-Few) per hpf Hyaline Casts (None-Few) per lpf Ur Culture Indicated? (NO) 11/16/17 Range/Units 15:24 WBC (4.3-11.1) K/mcL RBC (4.19-5.50) M/mcL Hgb (12.9-16.9) g/dL Hct (37.5-50.1) % MCV (83.0-100.0) fL MCH (28.0-33.3) pg MCHC (31.6-35.5) g/dL RDW (11.5-14.5) % Plt Count (140-400) K/mcL MPV (9.4-12.4) fL Immature Gran % (0-4) % Seg Neutrophils % % Lymphocytes % % Monocytes % % Eosinophils % % Basophils % % Neutrophils # (1.6-8.9) K/mcL Lymphocytes # (0.6-4.6) K/mcL Monocytes # (0.0-1.3) K/mcL Eosinophils # (0.0-0.6) K/mcL Basophils # (0.0-0.2) K/mcL Sodium (136-145) mEq/L Potassium (3.5-5.1) mEq/L Chloride (98-107) mEq/L Carbon Dioxide (23-29) mEq/L BUN (8-23) mg/dL Creatinine (0.70-1.30) mg/dL Est GFR ( Amer) (> 60) Est GFR (Non-Af Amer) (> 60) BUN/Creatinine Ratio (6-26) Glucose (70-105) mg/dL Calculated Osmolality (280-300) Lactic Acid (0.5-2.2) mmol/L Calcium (8.6-10.3) mg/dL Troponin I (< 0.04) ng/mL Urine Color Dark Yellow (Yellow) Urine Clarity Clear (Clear) Urine pH 5.5 (5.0-8.0) pH Units Ur Specific [place] 1.027 H (1.010-1.025) Urine Protein 30 H (Neg-Trace) mg/dL Urine Glucose (UA) Normal (Normal) mg/dL Urine Ketones Trace H (Negative) mg/dL Urine Blood Negative (Negative) Urine Nitrite Negative (Negative) Urine Bilirubin Small H (Negative) Urine Urobilinogen Normal (Normal) mg/dL Ur Leukocyte Esterase Negative (Negative) Urine Microscopic RBC 0-3 (0-3) per hpf Urine Microscopic WBC 0-3 (0-3) per hpf Ur Squamous Epith Cells Many H (None-Few) per lpf Urine Bacteria None Seen (None-Few) per hpf Hyaline Casts None Seen (None-Few) per lpf Ur Culture Indicated? NO (NO) - Radiology Data Radiology results reviewed: Yes I reviewed the patient's radiology results. Chest X-Ray 11/16/17 14:43 IMPRESSION: Left lower lobe infiltrate possibly representing pneumonia D/ / Frederick Vigil MD / Frederick Vigil MD Interpreting Provider: Frederick Vigil MD - EKG Data EKG attestation: Yes I reviewed and interpreted this EKG. Rate: Reports: tachycardia Rhythm: Reports: A.Fib [place]/QRS: Reports: normal Interpretation: Reports: nonspecific ST-T wave changes
[2017-11-16 15:25] LABS: Basophils % 0.1 %; Hematocrit 33.3 % (37.5-50.1); Immature Granulocytes % 0.4 % (0-4); Lymphocytes # 1.2 K/mcL (0.6-4.6); Lymphocytes % 14.9 %; Mean Corpuscular Hemoglobin 29.8 pg (28.0-33.3); Mean Corpuscular Volume 90.2 fL (83.0-100.0); Mean Platelet Volume 9.7 fL (9.4-12.4); Monocytes # 1.4 K/mcL (0.0-1.3); Monocytes % 17.2 %; Neutrophils # 5.6 K/mcL (1.6-8.9); Platelet Count 202 K/mcL (140-400); Red Blood Count 3.69 M/mcL (4.19-5.50); Red Cell Distribution Width 14.3 % (11.5-14.5); Segmented Neutrophils % 67.4 %
[2017-11-16 15:32] LABS: Bilirubin,Urine Small (Negative); Blood,Urine Negative (Negative); Color,Urine Dark Yellow (Yellow); Glucose,Urine (UA) Normal (Normal); Ketones,Urine Trace mg/dL (Negative); Leukocyte Esterase,Urine Negative (Negative); Nitrite,Urine Negative (Negative); PH,Urine 5.5 pH Units (5.0-8.0); Protein,Urine 30 mg/dL (Neg-Trace); Specific Gravity,Urine 1.027 (1.010-1.025); Urobilinogen,Urine Normal (Normal)
[2017-11-16 15:33] LABS: Bacteria,Urine None Seen per hpf (None-Few); Hyaline Casts,Urine None Seen per lpf (None-Few); RBC,Urine 0-3 per hpf (0-3); Squamous Epithelial Cell,Urine Many per lpf (None-Few); WBC,Urine 0-3 per hpf (0-3)
[2017-11-16 15:34] LABS: Clarity,Urine Clear (Clear)
[2017-11-16 15:47] LABS: BUN/Creatinine Ratio 32 (6-26); Blood Urea Nitrogen 26 mg/dL (8-23); Calcium 8.2 mg/dL (8.6-10.3); Carbon Dioxide 25 mEq/L (23-29); Chloride 105 mEq/L (98-107); Glucose 124 mg/dL (70-105); Osmolality,Calculated 292 (280-300); Potassium 3.4 mEq/L (3.5-5.1); Sodium 138 mEq/L (136-145); eGFR For African Americans > 60 (> 60); eGFR For Non-African Americans > 60 (> 60)
[2017-11-16] MEDS ORDERED: cefTRIAXone 1,000 MG in Water for inj. (sterile) 20 ML 10 ML IVP ONE (15:57)
[2017-11-16] MEDS ORDERED: Azithromycin 500 MG in D5% in Water 250 ML IVPB ONE (15:57)
[2017-11-16 15:59] LABS: Troponin I 0.04 ng/mL (< 0.04)
--- NOTE | 2017-11-16 18:51 | Internal Med History&Physical ---
Date of Encounter: 11/16/17 Time of Encounter: 18:51 Internal Medicine - H&P: HPI Admitted From: Home Plans for Post Hospital Care: Home History of present illness: Mr. Chu is a 81 year old male with known history of COPD, CAD status post CABG 3 vessel, hypertension, hyperlipidemia, pacemaker presented to ER with complaint SHORTNESS of breath, generalized weakness and white productive sputum for last 1 week but has been progressively worse. Patient did not seek medical advice but decided to come to emergency room due to progressively worsening of symptoms. In ER patient has been actively wheezing. Antibiotic Rocephin and azithromycin was restarted. ER physician called on-call hospitalists for the admission with the diagnosis of pneumonia, COPD exacerbation and raised troponin. Patient complained of subjective fever, chills, nausea, decreased oral intake but denies chest pain, dizziness, headache, abdominal pain, urinary or bowel complaint Past Med Surg Social Fam HX - Past Medical History Medical history: COPD, coronary artery disease, dementia, hypertension Psychiatric history: depression - Past Surgical History Surgical History: coronary bypass (CABG), pacemaker/AICD - Social History Smoking Status: Current every day smoker Smokeless Tobacco Status: No Alcohol use: occasionally Drug use: none - Family History Father Living Status: Hx Family Cardiac Disorders: Yes ([place]) Mother Living Status: Hx Family Cardiac Disorders: Yes ([place]) Internal Medicine - H&P: Meds Albuterol Sulfate [Ventolin Hfa] 2 puff IH Q4H PRN 04/27/17 [History] Aspirin Enteric Coated [Aspirin EC] 81 mg PO DAILY 04/27/17 [History] Carvedilol [Coreg] 6.25 mg PO DAILY 04/27/17 [History] Citalopram Hydrobromide [Citalopram HBr] 20 mg PO DAILY 04/27/17 [History] Clopidogrel [Plavix] 75 mg PO DAILY 04/27/17 [History] Finasteride [Proscar] 5 mg PO DAILY 04/27/17 [History] Losartan [Cozaar] 25 mg PO DAILY 04/27/17 [History] Mirtazapine [Remeron] 30 mg PO HS 04/27/17 [History] Pravastatin Sodium [Pravachol] 40 mg PO HS 04/27/17 [History] Tiotropium [Spiriva] 18 mcg IH DAILY 04/27/17 [History] Furosemide [Lasix] 20 mg PO DAILY #30 tablet 05/01/17 [Rx] Potassium Chloride 8 meq PO DAILY #30 tablet.er 05/01/17 [Rx] Ipratropium/Albuterol Neb [Duoneb] 3 ml IH Q4HR 11/16/17 [History] Nicotine Patch [Nicoderm] 14 mg TD DAILY 11/16/17 [History] 3 Allergy/AdvReac Type Severity Reaction Status Date / Time No Known Allergies Allergy Verified 11/08/17 18:00 All Systems PM: A 10-system review of systems was performed and is negative for pertinent findings except as documented above in the HPI. - Constitutional Vitals: Temp Pulse Resp BP Pulse Ox 98.3 F 84 20 117/64 93 11/16/17 14:37 11/16/17 17:47 11/16/17 17:47 11/16/17 17:47 11/16/17 17:47 Internal Med - H&P Results - Labs CBC & Chem 7: 11/16/17 14:43 11/16/17 14:43 Labs: Short CBC 11/16/17 Range/Units 14:43 WBC 8.3 (4.3-11.1) K/mcL Hgb 11.0 L (12.9-16.9) g/dL Hct 33.3 L (37.5-50.1) % Plt Count 202 (140-400) K/mcL Neutrophils # 5.6 (1.6-8.9) K/mcL BMP 11/16/17 14:43 Sodium 138 Potassium 3.4 L Chloride 105 Carbon Dioxide 25 BUN 26 H Creatinine 0.81 Glucose 124 H Calcium 8.2 L Cardiac Enzymes 11/16/17 Range/Units 14:43 Troponin I 0.04 H* (< 0.04) ng/mL Urine 11/16/17 Range/Units 15:24 Urine Color Dark Yellow (Yellow) Urine Clarity Clear (Clear) Urine pH 5.5 (5.0-8.0) pH Units Ur Specific [place] 1.027 H (1.010-1.025) Urine Protein 30 H (Neg-Trace) mg/dL Urine Glucose (UA) Normal (Normal) mg/dL - Impressions ITS Impressions Chest X-Ray 11/16/17 14:43 IMPRESSION: Left lower lobe infiltrate possibly representing pneumonia D/ / Frederick Vigil MD / Frederick Vigil MD Interpreting Provider: Frederick Vigil MD - Assessment and plan (1) Pneumonia Current Visit: Yes Status: Acute Assessment and plan: Left lower lobe. A started Rocephin and Zithromax in the ER therefore will continue. Community-acquired. Oxygen when necessary, breathing treatment, spirometry. Will repeat chest x-ray if worsening of symptoms. Qualifiers: Pneumonia type: due to unspecified organism Laterality: left Lung location: lower lobe of lung Qualified Code(s): J18.1 - Lobar pneumonia, unspecified organism (2) COPD exacerbation Current Visit: Yes Status: Acute Assessment and plan: Still actively wheezing. IV steroid, on breathing treatment, oxygen when necessary. (3) DVT prophylaxis Current Visit: No Status: Acute - Time Spent With Patient Total time spent is greater than 50% in coordination of care (as documented) at patient's floor/unit and/or counseling patient:
[2017-11-16] MEDS ORDERED: Acetaminophen 325 MG TABLET PO PRN (19:39)
[2017-11-16] MEDS ORDERED: Naloxone 0.4 MG/ML INJ IVP PRN (19:39)
[2017-11-16] MEDS: Albuterol 2.5 MG/3 ML NEBULIZER IH SCH (20:40)
[2017-11-16] MEDS: Mirtazapine 15 MG TABLET PO SCH (20:42)
[2017-11-16] MEDS: MethylPREDNISolone 40 MG/ML VIAL IVP SCH (23:31)
[2017-11-17] MEDS: Ipratropium/Albuterol Neb 3 ML IH SCH ×5 (00:21→22:49)
[2017-11-17] MEDS: Albuterol 2.5 MG/3 ML NEBULIZER IH SCH ×7 (00:22→22:50)
[2017-11-17 03:24] LABS: Basophils % 0.1 %; Eosinophils % 0.1 %; Hematocrit 33.2 % (37.5-50.1); Hemoglobin 11.4 g/dL (12.9-16.9); Immature Granulocytes % 0.3 % (0-4); Lymphocytes % 10.5 %; Mean Corpuscular HGB Conc 34.3 g/dL (31.6-35.5); Mean Corpuscular Hemoglobin 30.2 pg (28.0-33.3); Mean Corpuscular Volume 87.8 fL (83.0-100.0); Mean Platelet Volume 9.9 fL (9.4-12.4); Monocytes # 0.8 K/mcL (0.0-1.3); Monocytes % 8.4 %; Neutrophils # 7.3 K/mcL (1.6-8.9); Platelet Count 200 K/mcL (140-400); Red Blood Count 3.78 M/mcL (4.19-5.50); Red Cell Distribution Width 14.1 % (11.5-14.5); Segmented Neutrophils % 80.6 %
[2017-11-17 03:47] LABS: BUN/Creatinine Ratio 31 (6-26); Blood Urea Nitrogen 26 mg/dL (8-23); Calcium 8.9 mg/dL (8.6-10.3); Carbon Dioxide 22 mEq/L (23-29); Chloride 103 mEq/L (98-107); Glucose 133 mg/dL (70-105); Osmolality,Calculated 289 (280-300); Potassium 3.7 mEq/L (3.5-5.1); Sodium 136 mEq/L (136-145); eGFR For African Americans > 60 (> 60); eGFR For Non-African Americans > 60 (> 60)
[2017-11-17] MEDS: MethylPREDNISolone 40 MG/ML VIAL IVP SCH ×4 (05:40→23:25)
[2017-11-17] MEDS: Finasteride 5 MG TABLET PO SCH (09:29)
[2017-11-17] MEDS: Aspirin Enteric Coated 81 MG Tablet PO SCH (09:29)
[2017-11-17] MEDS: Nicotine 14 MG PATCH.TD24 TD SCH (09:30)
[2017-11-17 10:07] LABS: ABG Base Excess 2 mEq/L (-2 to 3); ABG HCO3 27 mEq/L (21-27); ABG Oxygen Saturation 94 % (95-98); ABG PCO2 44 mmHg (35-45); ABG PO2 71 mmHg (85-104); ABG TCO2 28 mEq/L (20-26)
[2017-11-17] MEDS ORDERED: Isovue-370 500 ML INFUS..BTL IV ONE (10:11)
--- NOTE | 2017-11-17 14:32 | Internal Med Progress Note ---
Date of Encounter: 11/17/17 Time of Encounter: 14:32 - Assessment and plan (1) Pneumonia Current Visit: Yes Status: Acute Assessment and plan: Left lower lobePNA on xray report Rocephin and Zithromax istarted n the ER. Community-acquired. Oxygen when necessary Continue breathing treatments Blood cultures pending Unable to cooperate with spirometry. CTA of chest completed with following findings, no evidence of pulmonary embolism. Minimal unchanged patchy opacification of the right middle lobe, dependent atelectasis within the lower lobes left greater than right, scarring of the lingula Qualifiers: Pneumonia type: due to unspecified organism Laterality: left Lung location: lower lobe of lung Qualified Code(s): J18.1 - Lobar pneumonia, unspecified organism (2) DVT prophylaxis Current Visit: No Status: Acute Assessment and plan: Plavix (3) COPD exacerbation Current Visit: Yes Status: Acute Assessment and plan: Wheeze on exam Continue Solu-Medrol Continue nebulizer treatments Oxygen to maintain sats greater than 90% Continue antibiotics (4) Tachycardia with heart rate 100-120 beats per minute Current Visit: Yes Status: Resolved Assessment and plan: Cardiology consult Known history of CAD status post CABG 3 vessels with hypertension hyperlipidemia and pacemaker Continue safety scientist EKG obtained showed atrial flutter with a rapid ventricular response. Compared to previous EKG which was paced - Time Spent With Patient Total time spent is greater than 50% in coordination of care (as documented) at patient's floor/unit and/or counseling patient: - Subjective Interval history: Patient was asleep and was difficult to arouse but once awake he did respond appropriately to name and place but he did not know the month. He was able to follow directions but he had no voiced complaints. He appears to be very hard of hearing. - Constitutional Vitals: Temp Pulse Resp BP Pulse Ox 98.3 F 94 18 101/61 95 11/17/17 11:56 11/17/17 11:56 11/17/17 11:56 11/17/17 11:56 11/17/17 11:56 Exam: Awake and oriented 2. Follows simple commands appropriately after repeating several times. He stated he was sleepy. Was drowsy and fell back to sleep after evaluation - Head Head exam: Present: atraumatic, normocephalic - Eye Eye exam: Present: PERRL, conjuntiva pink, sclera anicteric Pupils: Present: PERRL Additional comments: Lens implants - Neck Neck exam general surgery: Present: supple, trachea midline. Absent: lymphadenopathy, tenderness - Respiratory Respiratory exam: Present: decreased breath sounds, prolonged expiratory phase, wheezes. Absent: accessory muscle use, rales, rhonchi - Cardiovascular Cardiovascular exam: Present: RRR, +S1, +S2, tachycardia. Absent: diastolic murmur, gallop, rubs, systolic murmur - GI/Abdominal GI/Abdominal exam: Present: normal bowel sounds, soft, no peritoneal signs. Absent: distended, tenderness - Extremities Exam Extremities exam: Present: warm, radial pulses palpable and symmetrical. Absent : calf tenderness, cyanotic, pedal edema - Neurological Exam Neurological exam: Present: no focal deficits. Absent: pronater drift, facial droop, speech deficit Additional comments: Somewhat drowsy - Skin Skin exam: Present: cyanosis, dry, intact, warm Internal Medicine: Result - Labs CBC & Chem 7: 11/17/17 02:56 11/17/17 02:56 Labs: Short CBC 11/17/17 Range/Units 02:56 WBC 9.1 (4.3-11.1) K/mcL Hgb 11.4 L (12.9-16.9) g/dL Hct 33.2 L (37.5-50.1) % Plt Count 200 (140-400) K/mcL Neutrophils # 7.3 (1.6-8.9) K/mcL BMP 11/17/17 02:56 Sodium 136 Potassium 3.7 Chloride 103 Carbon Dioxide 22 L BUN 26 H Creatinine 0.83 Glucose 133 H Calcium 8.9 Cardiac Enzymes 11/16/17 11/17/17 11/17/17 Range/Units 20:38 02:56 08:33 Troponin I 0.04 H* 0.03 0.03 (< 0.04) ng/mL - ABG Interpretation ABG results: ABG ABG pH 7.40 pH Units (7.32-7.45) 11/17/17 10:01 ABG pCO2 44 mmHg (35-45) 11/17/17 10:01 ABG pO2 71 mmHg (85-104) L 11/17/17 10:01 ABG O2 Saturation 94 % (95-98) L 11/17/17 10:01 - Impressions Impressions Head CT 11/17/17 10:05 IMPRESSION: 1. No acute intracranial abnormality. 2. Mild to moderate age-appropriate diffuse atrophy with mild chronic small vessel ischemic changes. 3. Layering fluid in left sphenoid sinus could be related to acute sinusitis. D/ / Frederick Somers MD / Frederick Somers MD Interpreting Provider: Frederick Somers MD Chest CTA 11/17/17 10:11 IMPRESSION: 1. No evidence of a pulmonary embolism. 2. There is minimal unchanged patchy opacification of the right middle lobe. 3. Dependent atelectasis within the lower lobes, left greater than right. 4. Scarring of the lingula. D/ / Don Galvez MD / Don Galvez MD Interpreting Provider: Don Galvez MD Consult Discharge Plan - Plan Referrals: Glenda Benjamin DO [Primary Care Provider] -
[2017-11-17] MEDS: Azithromycin 500 MG in D5% in Water 250 ML IVPB SCH (17:22)
[2017-11-17] MEDS: cefTRIAXone 1,000 MG in Water for inj. (sterile) 20 ML 10 ML IVP SCH (17:24)
[2017-11-17] MEDS: Mirtazapine 15 MG TABLET PO SCH (20:04)
[2017-11-18] MEDS: Albuterol 2.5 MG/3 ML NEBULIZER IH SCH ×6 (04:37→22:33)
[2017-11-18] MEDS: Ipratropium/Albuterol Neb 3 ML IH SCH ×4 (04:38→22:32)
[2017-11-18 05:09] LABS: Basophils % 0.1 %; Hematocrit 35.6 % (37.5-50.1); Hemoglobin 12.2 g/dL (12.9-16.9); Immature Granulocytes % 0.3 % (0-4); Lymphocytes # 0.8 K/mcL (0.6-4.6); Lymphocytes % 9.5 %; Mean Corpuscular HGB Conc 34.3 g/dL (31.6-35.5); Mean Corpuscular Hemoglobin 29.8 pg (28.0-33.3); Mean Platelet Volume 9.9 fL (9.4-12.4); Monocytes # 0.4 K/mcL (0.0-1.3); Monocytes % 4.2 %; Platelet Count 243 K/mcL (140-400); Red Blood Count 4.09 M/mcL (4.19-5.50); Red Cell Distribution Width 13.8 % (11.5-14.5); Segmented Neutrophils % 85.9 %
[2017-11-18 05:17] LABS: Neutrophils # 7.5 K/mcL (1.6-8.9)
[2017-11-18 05:26] LABS: BUN/Creatinine Ratio 38 (6-26); Blood Urea Nitrogen 29 mg/dL (8-23); Calcium 9.3 mg/dL (8.6-10.3); Carbon Dioxide 27 mEq/L (23-29); Chloride 105 mEq/L (98-107); Glucose 176 mg/dL (70-105); Osmolality,Calculated 302 (280-300); Potassium 3.6 mEq/L (3.5-5.1); Sodium 141 mEq/L (136-145); eGFR For African Americans > 60 (> 60); eGFR For Non-African Americans > 60 (> 60)
[2017-11-18] MEDS: MethylPREDNISolone 40 MG/ML VIAL IVP SCH ×4 (06:32→23:39)
[2017-11-18] MEDS: Nicotine 14 MG PATCH.TD24 TD SCH (09:28)
[2017-11-18] MEDS: Finasteride 5 MG TABLET PO SCH (09:28)
[2017-11-18] MEDS: Aspirin Enteric Coated 81 MG Tablet PO SCH (09:28)
--- NOTE | 2017-11-18 10:04 | Cardiology Consult Note ---
Date of Encounter: 11/18/17 Time of Encounter: 08:30 Assessment and Plan (1) Atrial fibrillation with RVR Current Visit: Yes Status: Acute Patient presented with atrial fibrillation with RVR in the setting of pneumonia. Converted to NSR. No prior history. Last two ICD device checks showed no atrial fibrillation. TTE 10/03/2016-LVEF 35-40%.Moderate global and segmental LV systolic dysfunction.RV size appears normal. There is mild to moderate reduction in function by Doppler.Mild mitral regurgitation.Mild tricuspid regurgitation.No pulmonary hypertension. Check TSH. Mild troponin 0.04, 0.03. Non diagnostic of ACS in the setting of PNA and afib with RVR. Increase carvedilol as tolerated. Will increase to 12.5 mg BID. CHADS VASC= 4 for CHF, HTN, age and CAD. Coumadin vs NOAC discussed. Patient agreeable to start. Denies recent falls and has home health. I will sent eliquis through pharmacy to gu check. (2) CAD (coronary artery disease) Current Visit: Yes Status: Acute H/o CABG. in 2006. C 10/2010: EF 30-35%. LM luminal irregularities. LAD px to mid 70-80% stenosis. Cx small. OM1 px patent stent. RCA occluded. SVG-dRCA occluded. GRECO-LAD patent. Denies chest pain. Continue asa, statin, and bb. Qualifiers: Coronary Disease-Associated Artery/Lesion type: [place] artery [place] vs. transplanted heart: [place] heart Associated angina: without angina Qualified Code(s): I25.10 - Atherosclerotic heart disease of [place] coronary artery without angina pectoris Discussion w patient/family: The assessment and plan as outlined above was discussed with the patient and/or family members who expressed understanding and agreement. All questions were answered. Thank you for involving us in the care of your patient. Please call with any questions. History of Present Illness Consult date: 11/18/17 Requesting physician: Connie Whalen Consult reason: atrail fibrillation Chief complaint: SOB and cough History of present illness: Mr. Chu is a 81 year old male with past medical history of CABG, ICMP, ICD, infrarenal AAA, PVD, tobacco use, and COPD. He presented from home to the ED with SOB and cough. He is being treated for possible PNA. Cardiology consulted for atrial fibrillation seen on EKG. Patient is a poor historian with history of dementia. He denies history of atrial fibrilation. He follows with [facility]. There is no prior documentaion of afib. Me deneis chest pain. Admits to occasional palpitations. Previous testing: [facility] 10/2010: EF 30-35%. LM luminal irregularities. LAD px to mid 70-80% stenosis. Cx small. OM1 px patent stent. RCA occluded. SVG-dRCA occluded. GRECO- LAD patent. TTE 11/2012: EF 35-40%. Moderate diastolic dysfunction. Mild MR and TR. PFO. TTE 10/03/2016: LVEF 35-40%. Moderate global and segmental LV systolic dysfunction. Mild MR, TR. No pulmonary hypertension identified. LE angiogram 09/01/2014: Infrarenal AAA. Occluded bilateral mid superficial femoral arteries with 2 vessel runoff below each knee. Mild bilateral renal arter stenosis. Elective GARBAGE COLLECTOR of bilateral SFA stenosis. CTA of infrarenal aorta for aneuryxm sizing. LE arterial study 02/2016: Bilateral moderately diminished hemodynamic and moderately occlusive disease. Device interrogation 03/16/2017: Normal device function. No sustained arrhythmias. Device interrogation 09/03/17- No concerning arrhythmias. Battery longevity greater that 5 years. Past Med Surg Social Fam HX - Past Medical History Medical history: COPD, coronary artery disease, dementia, hypertension Psychiatric history: depression - Past Surgical History Surgical History: coronary bypass (CABG), pacemaker/AICD - Social History Smoking Status: Current every day smoker Smokeless Tobacco Status: No Alcohol use: unknown, occasionally Drug use: none - Family History Father Living Status: Hx Family Cardiac Disorders: Yes ([place]) Mother History Unknown: Yes Living Status: Hx Family Cardiac Disorders: Yes ([place]) Medications and Allergies Albuterol Sulfate [Ventolin Hfa] 2 puff IH Q4H PRN 04/27/17 [History] Aspirin Enteric Coated [Aspirin EC] 81 mg PO DAILY 04/27/17 [History] Carvedilol [Coreg] 6.25 mg PO DAILY 04/27/17 [History] Citalopram Hydrobromide [Citalopram HBr] 20 mg PO DAILY 04/27/17 [History] Clopidogrel [Plavix] 75 mg PO DAILY 04/27/17 [History] Finasteride [Proscar] 5 mg PO DAILY 04/27/17 [History] Losartan [Cozaar] 25 mg PO DAILY 04/27/17 [History] Mirtazapine [Remeron] 30 mg PO HS 04/27/17 [History] Pravastatin Sodium [Pravachol] 40 mg PO HS 04/27/17 [History] Tiotropium [Spiriva] 18 mcg IH DAILY 04/27/17 [History] Furosemide [Lasix] 20 mg PO DAILY #30 tablet 05/01/17 [Rx] Potassium Chloride 8 meq PO DAILY #30 tablet.er 05/01/17 [Rx] Ipratropium/Albuterol Neb [Duoneb] 3 ml IH Q4HR 11/16/17 [History] Nicotine Patch [Nicoderm] 14 mg TD DAILY 11/16/17 [History] 3 Allergy/AdvReac Type Severity Reaction Status Date / Time No Known Allergies Allergy Verified 11/08/17 18:00 All Systems Review: The remainder of the systems were reviewed and are negative Physical Examination Vital Signs, Last 4 Hours Temp Pulse Resp BP Pulse Ox 11/18/17 06:47 97.6 F 70 17 138/72 93 General: Conversant, No Apparent Distress HEENT: Atraumatic, Normocephaly, Mucus Membranes Moist Neck: No JVD, Normal carotid pulses Cardiac: Reg Rate and Rhythm, Normal S1 and S2, No Murmur, Other (Currently NSR) Lungs: Normal Breath Sounds, No Wheeze, Rales, Rhonchi Neuro: Alert and responsive, No focal deficits noted Abdomen: Soft, Non-Tender Skin: No rashes noted on visualized skin Musculoskeletal: No Chest Wall Tenderness Extremities: No Clubbing, No Cyanosis, No Edema, Normal Pulses Results 11/18/17 04:50 11/18/17 04:50 Lab Results 11/18/17 11/18/17 04:50 04:50 WBC 8.7 Hgb 12.2 L Hct 35.6 L Plt Count 243 Sodium 141 Potassium 3.6 Chloride 105 Carbon Dioxide 27 BUN 29 H Creatinine 0.76 Glucose 176 H Calcium 9.3 Chest X-Ray 11/16/17 14:43 IMPRESSION: Left lower lobe infiltrate possibly representing pneumonia D/ / Frederick Vigil MD / Frederick Vigil MD Interpreting Provider: Frederick Vigil MD Head CT 11/17/17 10:05 IMPRESSION: 1. No acute intracranial abnormality. 2. Mild to moderate age-appropriate diffuse atrophy with mild chronic small vessel ischemic changes. 3. Layering fluid in left sphenoid sinus could be related to acute sinusitis. D/ / Frederick Somers MD / Frederick Somers MD Interpreting Provider: Frederick Somers MD Chest CTA 11/17/17 10:11 IMPRESSION: 1. No evidence of a pulmonary embolism. 2. There is minimal unchanged patchy opacification of the right middle lobe. 3. Dependent atelectasis within the lower lobes, left greater than right. 4. Scarring of the lingula. D/ / Don Galvez MD / Don Galvez MD Interpreting Provider: Don Galvez MD - Imaging and Cardiology Echo: report reviewed - EKG Interpretation EKG results cardiology: personally reviewed Consult Discharge Plan - Plan Referrals: Glenda Benjamin DO [Primary Care Provider] -
--- NOTE | 2017-11-18 12:44 | Internal Med Progress Note ---
Date of Encounter: 11/18/17 Time of Encounter: 12:42 - Assessment and plan (1) Pneumonia Current Visit: Yes Status: Acute Assessment and plan: Left lower lobe PNA on xray report Rocephin and Zithromax started n the ER. Community-acquired. Oxygen when necessary - requiring 2-1/2 L to maintain his saturations in the mid 90s he was found on room air at 87% Continue breathing treatments Blood cultures no growth on prelim cultures 2 Unable to cooperate with spirometry. CTA of chest completed with following findings, no evidence of pulmonary embolism. Minimal unchanged patchy opacification of the right middle lobe, dependent atelectasis within the lower lobes left greater than right, scarring of the lingula Qualifiers: Pneumonia type: due to unspecified organism Laterality: left Lung location: lower lobe of lung Qualified Code(s): J18.1 - Lobar pneumonia, unspecified organism (2) DVT prophylaxis Current Visit: No Status: Acute Assessment and plan: Continue Plavix (3) COPD exacerbation Current Visit: Yes Status: Acute Assessment and plan: Continue nebulizers, continue azithromycin and Rocephin Continue Solu-Medrol IV 1 more day and will switch to oral tomorrow (4) Tachycardia with heart rate 100-120 beats per minute Current Visit: Yes Status: Resolved Assessment and plan: Patient was in A. fib with rapid ventricular response now converted to normal sinus rhythm. According to cardiology's note the last 2 ICD device check showed no atrial fibrillation Check TSH Increase Coreg as tolerated. Cardiology has increased to 12.5 mg twice a day Echocardiogram from 10/03/16 was reviewed by cardiology with LVEF 35-40% with systolic dysfunction. Recommend oral anticoagulation and we will check Gu tomorrow with pharmacy opens. Therapeutic Lovenox has been started by cardiology. (5) Atrial fibrillation with RVR Current Visit: Yes Status: Acute Assessment and plan: Follows with [place] [facility] and according to the belt loop machine operator consult patient has not had a history of A. fib Lovenox started and recommend discharge on anticoagulation. Cardiology is gu checking Eliquis Converted to sinus rhythm (6) CAD (coronary artery disease) Current Visit: Yes Status: Acute Assessment and plan: Patient with history of CABG in 2006 and left heart cath in 10/2010. Cardiology following and recommends continuing aspirin a statin and beta sebastián. Qualifiers: Coronary Disease-Associated Artery/Lesion type: [place] artery [place] vs. transplanted heart: [place] heart Associated angina: without angina Qualified Code(s): I25.10 - Atherosclerotic heart disease of [place] coronary artery without angina pectoris (7) Weakness Current Visit: Yes Status: Acute Assessment and plan: PT and OT assessment, social service to follow. - Time Spent With Patient Total time spent is greater than 50% in coordination of care (as documented) at patient's floor/unit and/or counseling patient: - Subjective Interval history: Patient is alert and oriented 2. 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 He is sitting up in bed and feeding himself. He had a little difficulty with his utensils and was using them correctly but when placing his hands correctly he was totally able to feed himself. He does not remember the events of yesterday. He does not remember sleeping from us 24 hours. He feels good with no complaints today. He stated he was very happy to get food - Constitutional Vitals: Temp Pulse Resp BP Pulse Ox 97.7 F 70 17 118/53 96 11/18/17 11:48 11/18/17 11:48 11/18/17 11:48 11/18/17 11:48 11/18/17 11:48 General appearance: Present: cooperative, A&O X 2, pleasant - Head Head exam: Present: atraumatic, normocephalic - Eye Eye exam: Present: PERRL, conjuntiva pink, sclera anicteric Pupils: Present: PERRL - Neck Neck exam general surgery: Present: supple, trachea midline. Absent: lymphadenopathy - Respiratory Respiratory exam: Present: decreased breath sounds. Absent: accessory muscle use, rales, rhonchi, wheezes Additional comments: Slightly coarse with mild scattered wheezes on forced expiration but no bronchospasm or cough - Cardiovascular Cardiovascular exam: Present: RRR, +S1, +S2. Absent: diastolic murmur, gallop, rubs, systolic murmur - GI/Abdominal GI/Abdominal exam: Present: normal bowel sounds, soft, no peritoneal signs. Absent: distended, tenderness - Extremities Exam Extremities exam: Present: warm, radial pulses palpable and symmetrical. Absent : calf tenderness, cyanotic, pedal edema - Neurological Exam Neurological exam: Present: alert, CN II-XII intact, no focal deficits. Absent : pronater drift, facial droop, speech deficit - Skin Skin exam: Present: dry, normal color, warm Internal Medicine: Result - Labs CBC & Chem 7: 11/18/17 04:50 11/18/17 04:50 Labs: Short CBC 11/18/17 Range/Units 04:50 WBC 8.7 (4.3-11.1) K/mcL Hgb 12.2 L (12.9-16.9) g/dL Hct 35.6 L (37.5-50.1) % Plt Count 243 (140-400) K/mcL Neutrophils # 7.5 (1.6-8.9) K/mcL BMP 11/18/17 04:50 Sodium 141 Potassium 3.6 Chloride 105 Carbon Dioxide 27 BUN 29 H Creatinine 0.76 Glucose 176 H Calcium 9.3 - ABG Interpretation ABG results: ABG ABG pH 7.40 pH Units (7.32-7.45) 11/17/17 10:01 ABG pCO2 44 mmHg (35-45) 11/17/17 10:01 ABG pO2 71 mmHg (85-104) L 11/17/17 10:01 ABG O2 Saturation 94 % (95-98) L 11/17/17 10:01 Consult Discharge Plan - Plan Referrals: Glenda Benjamin DO [Primary Care Provider] -
[2017-11-18] MEDS: *HR* Enoxaparin 60 MG/0.6 ML SYRINGE SQ SCH (17:19)
[2017-11-18] MEDS: cefTRIAXone 1,000 MG in Water for inj. (sterile) 20 ML 10 ML IVP SCH (17:20)
[2017-11-18] MEDS: Azithromycin 500 MG in D5% in Water 250 ML IVPB SCH (17:21)
[2017-11-18] MEDS: Mirtazapine 15 MG TABLET PO SCH (20:24)
[2017-11-19] MEDS: Albuterol 2.5 MG/3 ML NEBULIZER IH SCH ×6 (03:58→20:27)
[2017-11-19] MEDS: Ipratropium/Albuterol Neb 3 ML IH SCH ×3 (04:00→16:05)
--- NOTE | 2017-11-19 05:56 | Urology - Consult Note ---
Date of Encounter: 11/19/17 Time of Encounter: 05:56 - Assessment and Plan (1) Urinary retention Current Visit: Yes Status: Acute Assessment and plan: Urinary retention is likely multifactorial. Likely due to multiple comorbidities, potential bladder outlet obstruction, dementia, debilitated state and failing health. Recommend starting tamsulosin, which is already been done, and leaving catheter in place at least 1 week prior to removal. Patient is already on finasteride. Catheter can be removed at a alf facility in one week. The alf facility should watch for decreased output or recurrent urinary retention. Urology CN:HPI Consult date: 11/19/17 History of present illness: 81 yo known history of dementia, COPD, CAD status post CABG 3 vessel, hypertension, hyperlipidemia, pacemaker presented to ER with complaint SHORTNESS of breath, generalized weakness and white productive sputum. Developed abdominal distention, elevated bladder residuals, requiring Ravi catheter placement. Unsure exact amount retrieved on Ravi catheter placement. Hospitalist provider reports improvement in patient's condition after Ravi catheter placement. Patient states this morning that the catheter does not bother him. Unable to provide information regarding urinary symptoms prior to hospitalization. Past Med Surg Social Fam HX - Past Medical History Medical history: COPD, coronary artery disease, dementia, hypertension Psychiatric history: depression - Past Surgical History Surgical History: coronary bypass (CABG), pacemaker/AICD - Social History Smoking Status: Current every day smoker Smokeless Tobacco Status: No Alcohol use: unknown, occasionally Drug use: none - Family History Father Living Status: Hx Family Cardiac Disorders: Yes ([place]) Mother History Unknown: Yes Living Status: Hx Family Cardiac Disorders: Yes ([place]) Medications and Allergies Albuterol Sulfate [Ventolin Hfa] 2 puff IH Q4H PRN 04/27/17 [History] Aspirin Enteric Coated [Aspirin EC] 81 mg PO DAILY 04/27/17 [History] Carvedilol [Coreg] 6.25 mg PO DAILY 04/27/17 [History] Citalopram Hydrobromide [Citalopram HBr] 20 mg PO DAILY 04/27/17 [History] Clopidogrel [Plavix] 75 mg PO DAILY 04/27/17 [History] Finasteride [Proscar] 5 mg PO DAILY 04/27/17 [History] Losartan [Cozaar] 25 mg PO DAILY 04/27/17 [History] Mirtazapine [Remeron] 30 mg PO HS 04/27/17 [History] Pravastatin Sodium [Pravachol] 40 mg PO HS 04/27/17 [History] Tiotropium [Spiriva] 18 mcg IH DAILY 04/27/17 [History] Furosemide [Lasix] 20 mg PO DAILY #30 tablet 05/01/17 [Rx] Potassium Chloride 8 meq PO DAILY #30 tablet.er 05/01/17 [Rx] Ipratropium/Albuterol Neb [Duoneb] 3 ml IH Q4HR 11/16/17 [History] Nicotine Patch [Nicoderm] 14 mg TD DAILY 11/16/17 [History] 3 Allergy/AdvReac Type Severity Reaction Status Date / Time No Known Allergies Allergy Verified 11/08/17 18:00 Review of Systems - Constitutional no chills, no fatigue, no fever(s) - EENT Nose, mouth and throat: no dizziness - Cardiovascular no chest pain - Respiratory no cough - Gastrointestinal no abdominal pain - Genitourinary as per HPI - Musculoskeletal no back pain - Integumentary no erythema - Neurological no confusion - Psychiatric confusion, no anxiety - Hematologic/Lymphatic no easy bleeding - Allergic/Immunologic no throat swelling Exam Initial Vital Signs Temp Pulse Resp BP Pulse Ox 98.3 F 84 20 122/60 91 11/16/17 14:37 11/16/17 14:37 11/16/17 14:37 11/16/17 14:37 11/16/17 14:37 - General physical appearance Present: no distress, chronically ill - Eyes Present: PERRL - ENT Present: normal nares - Neck Present: no masses - Respiratory Present: normal respiratory effort - Cardiovascular Cardiovascular exam IM: RRR - Abdomen Abdomen: Present: soft. Absent: masses, suprapubic tenderness - Genitourinary normal penis with no external lesions - Integumentary Present: no rash, no growths - Neurologic Present: confused - Additional Findings Ravi catheter draining clear urine Urology Results - Labs 11/18/17 04:50 11/18/17 04:50 Abnormal lab results RBC 4.09 M/mcL (4.19-5.50) L 11/18/17 04:50 Hgb 12.2 g/dL (12.9-16.9) L 11/18/17 04:50 Hct 35.6 % (37.5-50.1) L 11/18/17 04:50 ABG pO2 71 mmHg (85-104) L 11/17/17 10:01 ABG Total CO2 28 mEq/L (20-26) H 11/17/17 10:01 ABG O2 Saturation 94 % (95-98) L 11/17/17 10:01 BUN 29 mg/dL (8-23) H 11/18/17 04:50 BUN/Creatinine Ratio 38 (6-26) H 11/18/17 04:50 Glucose 176 mg/dL (70-105) H 11/18/17 04:50 POC Glucose 107 mg/dL (70-99) H 11/16/17 20:31 Calculated Osmolality 302 (280-300) H 11/18/17 04:50 Ur Specific [place] 1.027 (1.010-1.025) H 11/16/17 15:24 Urine Protein 30 mg/dL (Neg-Trace) H 11/16/17 15:24 Urine Ketones Trace mg/dL (Negative) H 11/16/17 15:24 Urine Bilirubin Small (Negative) H 11/16/17 15:24 Ur Squamous Epith Cells Many per lpf (None-Few) H 11/16/17 15:24 All other labs normal. Consult Discharge Plan - Plan Referrals: Glenda Benjamin DO [Primary Care Provider] -
[2017-11-19 06:00] LABS: Basophils % 0.2 %; Hematocrit 34.2 % (37.5-50.1); Hemoglobin 11.4 g/dL (12.9-16.9); Immature Granulocytes % 1.2 % (0-4); Lymphocytes # 0.9 K/mcL (0.6-4.6); Lymphocytes % 7.6 %; Mean Corpuscular HGB Conc 33.3 g/dL (31.6-35.5); Mean Corpuscular Hemoglobin 29.5 pg (28.0-33.3); Mean Corpuscular Volume 88.6 fL (83.0-100.0); Mean Platelet Volume 9.8 fL (9.4-12.4); Monocytes # 0.5 K/mcL (0.0-1.3); Monocytes % 3.9 %; Neutrophils # 10.6 K/mcL (1.6-8.9); Platelet Count 268 K/mcL (140-400); Red Blood Count 3.86 M/mcL (4.19-5.50); Red Cell Distribution Width 13.7 % (11.5-14.5); Segmented Neutrophils % 87.1 %
[2017-11-19 06:18] LABS: BUN/Creatinine Ratio 41 (6-26); Blood Urea Nitrogen 42 mg/dL (8-23); Calcium 9.2 mg/dL (8.6-10.3); Carbon Dioxide 29 mEq/L (23-29); Chloride 104 mEq/L (98-107); Glucose 224 mg/dL (70-105); Osmolality,Calculated 309 (280-300); Sodium 141 mEq/L (136-145); eGFR For African Americans > 60 (> 60); eGFR For Non-African Americans > 60 (> 60)
[2017-11-19] MEDS: MethylPREDNISolone 40 MG/ML VIAL IVP SCH ×3 (06:18→17:09)
[2017-11-19] MEDS: *HR* Enoxaparin 60 MG/0.6 ML SYRINGE SQ SCH (06:18)
[2017-11-19] MEDS: Finasteride 5 MG TABLET PO SCH (07:49)
[2017-11-19] MEDS: Aspirin Enteric Coated 81 MG Tablet PO SCH (07:50)
[2017-11-19] MEDS: Nicotine 14 MG PATCH.TD24 TD SCH (07:50)
--- NOTE | 2017-11-19 13:00 | Cardiology Progress Note ---
Date of Encounter: 11/19/17 Time of Encounter: 12:58 Assessment and Plan (1) Atrial fibrillation with RVR Current Visit: Yes Status: Acute Patient presented with atrial fibrillation with RVR in the setting of pneumonia. Currently rate controlled with increased carvedilol. No previous history of atrial fibrillation. TTE 10/03/2016-LVEF 35-40%.Moderate global and segmental LV systolic dysfunction.RV size appears normal. There is mild to moderate reduction in function by Doppler.Mild mitral regurgitation.Mild tricuspid regurgitation.No pulmonary hypertension. Check TSH. Mild troponin 0.04, 0.03. Non diagnostic of ACS in the setting of PNA and afib with RVR. Continue carvedilol at increased dose. CHADS VASC= 4 for CHF, HTN, age and CAD. Coumadin vs NOAC discussed. Patient agreeable to start. Denies recent falls but increasingly weak with current illness. PT/OT eval was recommended. Per PT note patient is recommended to go to ECF for short period for rehab. This will decrease fall risk. Patient is agreeable to eliquis. Sent to patients pharmacy and recommend stopping plavix. Cardiology will sign off. Please call with questions. (2) CAD (coronary artery disease) Current Visit: Yes Status: Acute H/o CABG. in 2006. [facility] 10/2010: EF 30-35%. LM luminal irregularities. LAD px to mid 70-80% stenosis. Cx small. OM1 px patent stent. RCA occluded. SVG-dRCA occluded. GRECO-LAD patent. Denies chest pain. Continue asa, statin, and bb. Ok to stop plavix with addition of eliquis. Qualifiers: Coronary Disease-Associated Artery/Lesion type: [place] artery [place] vs. transplanted heart: [place] heart Associated angina: without angina Qualified Code(s): I25.10 - Atherosclerotic heart disease of [place] coronary artery without angina pectoris Discussion w patient/family: The assessment and plan as outlined above was discussed with the patient and/or family members who expressed understanding and agreement. All questions were answered. Thank you for involving us in the care of your patient. Please call with any questions. Subjective Principal diagnosis: atrial fibrillation Interval history: Mr. Chu denies palpitations or chest pain. He notes that he has not been out of bed and is concerned. PT/OT evaluated and recommends short term rehab prior to returning home. Patient lives with nephew. Objective Vital Signs, Last 4 Hours Temp Pulse Resp BP Pulse Ox 11/19/17 11:18 97.6 F 59 15 138/65 99 11/19/17 11:04 18 95 General: Conversant, No Apparent Distress HEENT: Atraumatic, Normocephaly, Mucus Membranes Moist Neck: No JVD, Normal carotid pulses Cardiac: Other (irregularly irregular) Lungs: Normal Breath Sounds, No Wheeze, Rales, Rhonchi Neuro: Alert and responsive, No focal deficits noted Abdomen: Soft, Non-Tender Skin: No rashes noted on visualized skin Musculoskeletal: No Chest Wall Tenderness Extremities: No Clubbing, No Cyanosis, No Edema, Normal Pulses Results 11/19/17 05:22 11/19/17 05:22 Lab Results 11/19/17 11/19/17 05:22 05:22 WBC 12.2 H Hgb 11.4 L Hct 34.2 L Plt Count 268 Sodium 141 Potassium 4.0 Chloride 104 Carbon Dioxide 29 BUN 42 H Creatinine 1.03 Glucose 224 H Calcium 9.2 - Imaging and Cardiology Echo: report reviewed Consult Discharge Plan - Plan Referrals: Glenda Benjamin DO [Primary Care Provider] -
--- NOTE | 2017-11-19 16:20 | Internal Med Progress Note ---
Date of Encounter: 11/19/17 Time of Encounter: 16:17 - Assessment and plan (1) Pneumonia Current Visit: Yes Status: Acute Assessment and plan: Left lower lobe PNA on xray report Rocephin and Zithromax started n the ER to treat community-acquired. WBCs slightly elevated likely secondary to steroids Oxygen when necessary - requiring 2-1/2 L to maintain his saturations in the mid 90s, he desats on room air Continue breathing treatments Blood cultures no growth on prelim cultures 2 Unable to cooperate with spirometry. CTA of chest completed with following findings: no evidence of pulmonary embolism. Minimal unchanged patchy opacification of the right middle lobe, dependent atelectasis within the lower lobes left greater than right, scarring of the lingula Qualifiers: Pneumonia type: due to unspecified organism Laterality: left Lung location: lower lobe of lung Qualified Code(s): J18.1 - Lobar pneumonia, unspecified organism (2) DVT prophylaxis Current Visit: No Status: Acute Assessment and plan: Continue Plavix and stop lovenox Cardiology sent over script for eliquis and will start today and discharge on eliquis which has no copay per their report (3) COPD exacerbation Current Visit: Yes Status: Acute Assessment and plan: Continue nebulizers, azithromycin and Rocephin Decrease Solu-Medrol to every 12 hours and switch to prednisone taper on discharge (4) Tachycardia with heart rate 100-120 beats per minute Current Visit: Yes Status: Resolved Assessment and plan: Patient was in A. fib with rapid ventricular response now converted to normal sinus rhythm. According to cardiology's note the last 2 ICD device check showed no atrial fibrillation TSH Increase Coreg as tolerated. Cardiology has increased to 12.5 mg twice a day Echocardiogram from 10/03/16 was reviewed by cardiology with LVEF 35-40% with systolic dysfunction. 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 fib Cardiology gu checking Eliquis with 0 copay Converted to sinus rhythm (6) CAD (coronary artery disease) Current Visit: Yes Status: Acute Assessment and plan: Patient with history of CABG in 2006 and left heart cath in 10/2010. Cardiology following and recommends continuing aspirin, statin, and beta sebastián. Qualifiers: Coronary Disease-Associated Artery/Lesion type: [place] artery [place] vs. transplanted heart: [place] heart Associated angina: without angina Qualified Code(s): I25.10 - Atherosclerotic heart disease of [place] coronary artery without angina pectoris (7) Weakness Current Visit: Yes Status: Acute Assessment and plan: PT and OT assessment, social service to follow Recommended skilled facility for some rehabilitation. He lives at home with his nephew.. (8) Urinary retention Current Visit: Yes Status: Acute Assessment and plan: Flomax started and will continue on discharge Patient to be discharged with a Ravi catheter which will be removed in one week at the [facility] facility or if he goes home by home health. - Time Spent With Patient Total time spent is greater than 50% in coordination of care (as documented) at patient's floor/unit and/or counseling patient: - Subjective Interval history: Patient is alert and oriented 2. 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 He is sitting up in bed and feeding himself breakfast. He has no voiced complaints. He denies any chest pain or shortness of breath. - Constitutional Vitals: Temp Pulse Resp BP Pulse Ox 98.2 F 76 16 159/77 94 11/19/17 15:10 11/19/17 15:10 11/19/17 15:10 11/19/17 15:10 11/19/17 15:10 General appearance: Present: cooperative, A&O X 2, pleasant. Absent: answers questions appropriately - Head Head exam: Present: atraumatic, normocephalic - Eye Eye exam: Present: PERRL, conjuntiva pink, sclera anicteric Pupils: Present: PERRL - Neck Neck exam general surgery: Present: supple, trachea midline. Absent: lymphadenopathy - Respiratory Respiratory exam: Present: decreased breath sounds, rhonchi. Absent: accessory muscle use, rales, wheezes Additional comments: No bronchospasm or wheeze on exam but a few scattered rhonchi - Cardiovascular Cardiovascular exam: Present: RRR, +S1, +S2. Absent: diastolic murmur, gallop, rubs, systolic murmur - GI/Abdominal GI/Abdominal exam: Present: normal bowel sounds, soft, no peritoneal signs. Absent: distended, tenderness - Extremities Exam Extremities exam: Present: warm, radial pulses palpable and symmetrical. Absent : calf tenderness, cyanotic, pedal edema - Neurological Exam Neurological exam: Present: alert, CN II-XII intact, no focal deficits. Absent : pronater drift, facial droop, speech deficit - Skin Skin exam: Present: dry, intact, normal color, warm Internal Medicine: Result - Labs CBC & Chem 7: 11/19/17 05:22 11/19/17 05:22 Labs: Short CBC 11/19/17 Range/Units 05:22 WBC 12.2 H (4.3-11.1) K/mcL Hgb 11.4 L (12.9-16.9) g/dL Hct 34.2 L (37.5-50.1) % Plt Count 268 (140-400) K/mcL Neutrophils # 10.6 H (1.6-8.9) K/mcL BMP 11/19/17 05:22 Sodium 141 Potassium 4.0 Chloride 104 Carbon Dioxide 29 BUN 42 H Creatinine 1.03 Glucose 224 H Calcium 9.2 - ABG Interpretation ABG results: ABG ABG pH 7.40 pH Units (7.32-7.45) 11/17/17 10:01 ABG pCO2 44 mmHg (35-45) 11/17/17 10:01 ABG pO2 71 mmHg (85-104) L 11/17/17 10:01 ABG O2 Saturation 94 % (95-98) L 11/17/17 10:01 Consult Discharge Plan - Plan Referrals: Glenda Benjamin DO [Primary Care Provider] -
[2017-11-19] MEDS: Azithromycin 500 MG in D5% in Water 250 ML IVPB SCH (17:09)
[2017-11-19] MEDS: cefTRIAXone 1,000 MG in Water for inj. (sterile) 20 ML 10 ML IVP SCH (17:09)
[2017-11-19] MEDS: Apixaban 5 MG TABLET PO SCH (21:15)
[2017-11-19] MEDS: Mirtazapine 15 MG TABLET PO SCH (21:15)
[2017-11-20] MEDS: Ipratropium/Albuterol Neb 3 ML IH SCH ×5 (00:14→23:22)
[2017-11-20] MEDS: Albuterol 2.5 MG/3 ML NEBULIZER IH SCH ×7 (00:33→23:24)
--- NOTE | 2017-11-20 05:15 | Electrocardiograph Report ---
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
--- NOTE | 2017-11-20 05:43 | Electrocardiograph Report ---
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
[2017-11-20 06:01] LABS: Basophils % 0.4 %; Hematocrit 36.3 % (37.5-50.1); Hemoglobin 12.1 g/dL (12.9-16.9); Immature Granulocytes % 4.3 % (0-4); Lymphocytes # 1.2 K/mcL (0.6-4.6); Lymphocytes % 12.1 %; Mean Corpuscular HGB Conc 33.3 g/dL (31.6-35.5); Mean Corpuscular Hemoglobin 29.8 pg (28.0-33.3); Mean Corpuscular Volume 89.4 fL (83.0-100.0); Mean Platelet Volume 9.5 fL (9.4-12.4); Monocytes # 0.9 K/mcL (0.0-1.3); Monocytes % 8.7 %; Neutrophils # 7.4 K/mcL (1.6-8.9); Platelet Count 279 K/mcL (140-400); Red Blood Count 4.06 M/mcL (4.19-5.50); Red Cell Distribution Width 13.5 % (11.5-14.5); Segmented Neutrophils % 74.5 %
[2017-11-20 06:27] LABS: BUN/Creatinine Ratio 35 (6-26); Blood Urea Nitrogen 29 mg/dL (8-23); Calcium 9.2 mg/dL (8.6-10.3); Carbon Dioxide 29 mEq/L (23-29); Chloride 107 mEq/L (98-107); Glucose 167 mg/dL (70-105); Osmolality,Calculated 308 (280-300); Potassium 3.8 mEq/L (3.5-5.1); Sodium 144 mEq/L (136-145); eGFR For African Americans > 60 (> 60); eGFR For Non-African Americans > 60 (> 60)
[2017-11-20] MEDS: MethylPREDNISolone 40 MG/ML VIAL IVP SCH ×2 (06:28→17:56)
[2017-11-20 06:40] LABS: Thyroid Stimulating Hormone 0.987 mcIU/mL (0.340-5.600)
[2017-11-20] MEDS: Aspirin Enteric Coated 81 MG Tablet PO SCH (08:57)
[2017-11-20] MEDS: Finasteride 5 MG TABLET PO SCH (08:57)
[2017-11-20] MEDS: Apixaban 5 MG TABLET PO SCH ×2 (08:57→20:44)
[2017-11-20] MEDS: Nicotine 14 MG PATCH.TD24 TD SCH (08:57)
--- NOTE | 2017-11-20 16:26 | Internal Med Progress Note ---
Date of Encounter: 11/20/17 Time of Encounter: 09:40 - Assessment and plan (1) Pneumonia Current Visit: Yes Status: Acute Assessment and plan: LLL pna on xray report, CAP, treated wtih Zithromax and Rocephin in the ER. Leukocytosis has resolved today. Pt is afebrile, no tachycardia or hypotension. Continue O2 as needed to maintain sats greater than 92%. Continue breathing treatments scheduled Blood cultures negative 2 Encourage incentive spirometry Chest X-Ray 11/16/17 14:43 IMPRESSION: Left lower lobe infiltrate possibly representing pneumonia D/ / Frederick Vigil MD / Frederick Vigil MD Interpreting Provider: Frederick Vigil MD Chest CTA 11/17/17 10:11 IMPRESSION: 1. No evidence of a pulmonary embolism. 2. There is minimal unchanged patchy opacification of the right middle lobe. 3. Dependent atelectasis within the lower lobes, left greater than right. 4. Scarring of the lingula. D/ / Don Galvez MD / Don Galvez MD Interpreting Provider: Don Galvez MD Qualifiers: Pneumonia type: due to unspecified organism Laterality: left Lung location: lower lobe of lung Qualified Code(s): J18.1 - Lobar pneumonia, unspecified organism (2) DVT prophylaxis Current Visit: No Status: Acute Assessment and plan: Continue Plavix, DC Lovenox Pt has been started on Eliquis, continue after discharge. (3) COPD exacerbation Current Visit: Yes Status: Acute Assessment and plan: Mild acute exacerbation complicated by pneumonia. Plan as above. IV Solumedrol decreased to 20mg IV BID. Will taper to po prednisone for discharge. (4) Tachycardia with heart rate 100-120 beats per minute Current Visit: Yes Status: Resolved Assessment and plan: NSR. According to cardiology's note the last 2 ICD device check showed no atrial fibrillation TSH Continue Coreg 12.5mg po BID. Echocardiogram from 10/03/16 was reviewed by cardiology with LVEF 35-40% with systolic dysfunction. Continue telemetry (5) CAD (coronary artery disease) Current Visit: Yes Status: Acute Assessment and plan: History of CABG, LHC 11/07. Continue ASA, statin, BB, Eliquis. Qualifiers: Coronary Disease-Associated Artery/Lesion type: [place] artery [place] vs. transplanted heart: [place] heart Associated angina: without angina Qualified Code(s): I25.10 - Atherosclerotic heart disease of [place] coronary artery without angina pectoris (6) Atrial fibrillation with RVR Current Visit: Yes Status: Acute Assessment and plan: No prior history. Pt now NSR. Will be sent home on Eliquis. (7) Weakness Current Visit: Yes Status: Acute Assessment and plan: PT/OT recommend SNF/ECF after discharge for rehab. initially, patient was agreeable to home health. Social work is following. (8) Urinary retention Current Visit: Yes Status: Acute Assessment and plan: Continue Flomax. Patient to have Ravi upon discharge, will need to follow up with urology for void trial 7 days after discharge. - Time Spent With Patient Total time spent is greater than 50% in coordination of care (as documented) at patient's floor/unit and/or counseling patient: less than 15 minutes - Subjective Interval history: Pt was seen and assessed at bedside at 0940. He was drowsy, aroused easily to verbal, appears to answer questions appropriately, then goes back to sleep. He denies headache, n/v, abdominal pain, chest pain or SOB. He does report cough and ronchi is heard in anterior chest. - Constitutional Vitals: Temp Pulse Resp BP Pulse Ox 97.6 F 56 16 143/73 93 11/20/17 11:45 11/20/17 11:45 11/20/17 16:06 11/20/17 11:45 11/20/17 16:06 General appearance: Present: cooperative, A&O X 2, pleasant, no acute distress, answers questions appropriately - Head Head exam: Present: atraumatic, normal inspection, normocephalic - Eye Eye exam: Present: conjuntiva pink, sclera anicteric - Neck Neck exam general surgery: Present: supple, trachea midline. Absent: lymphadenopathy - Respiratory Respiratory exam: Present: CTAB, rhonchi. Absent: accessory muscle use, rales, respiratory distress, wheezes - Cardiovascular Cardiovascular exam: Present: RRR, +S1, +S2. Absent: diastolic murmur, gallop, rubs, systolic murmur - GI/Abdominal GI/Abdominal exam: Present: normal bowel sounds, soft, no peritoneal signs. Absent: distended, hepatomegaly, tenderness - Extremities Exam Extremities exam: Present: normal capillary refill, normal inspection, warm, radial pulses palpable and symmetrical. Absent: calf tenderness, cyanotic, pedal edema, tenderness - Neurological Exam Neurological exam: Present: alert, no focal deficits. Absent: oriented X3, facial droop, speech deficit - Skin Skin exam: Present: dry, intact, normal color, warm. Absent: rash Internal Medicine: Result - Labs CBC & Chem 7: 11/20/17 05:25 11/20/17 05:25 Labs: Short CBC 11/20/17 Range/Units 05:25 WBC 9.9 (4.3-11.1) K/mcL Hgb 12.1 L (12.9-16.9) g/dL Hct 36.3 L (37.5-50.1) % Plt Count 279 (140-400) K/mcL Neutrophils # 7.4 (1.6-8.9) K/mcL BMP 11/20/17 05:25 Sodium 144 Potassium 3.8 Chloride 107 Carbon Dioxide 29 BUN 29 H Creatinine 0.83 Glucose 167 H Calcium 9.2 - ABG Interpretation ABG results: ABG ABG pH 7.40 pH Units (7.32-7.45) 11/17/17 10:01 ABG pCO2 44 mmHg (35-45) 11/17/17 10:01 ABG pO2 71 mmHg (85-104) L 11/17/17 10:01 ABG O2 Saturation 94 % (95-98) L 11/17/17 10:01 Consult Discharge Plan - Plan Referrals: Glenda Benjamin DO [Primary Care Provider] -
[2017-11-20] MEDS: cefTRIAXone 1,000 MG in Water for inj. (sterile) 20 ML 10 ML IVP SCH (17:56)
[2017-11-20] MEDS: Azithromycin 500 MG in D5% in Water 250 ML IVPB SCH (17:56)
[2017-11-20] MEDS: Mirtazapine 15 MG TABLET PO SCH (20:43)
[2017-11-21] MEDS: Albuterol 2.5 MG/3 ML NEBULIZER IH SCH ×6 (04:05→23:49)
[2017-11-21] MEDS: Ipratropium/Albuterol Neb 3 ML IH SCH ×4 (04:06→22:51)
[2017-11-21 04:11] LABS: Basophils # 0.1 K/mcL (0.0-0.2); Basophils % 0.6 %; Hemoglobin 11.7 g/dL (12.9-16.9); Immature Granulocytes % 4.6 % (0-4); Lymphocytes # 1.7 K/mcL (0.6-4.6); Lymphocytes % 17.7 %; Mean Corpuscular HGB Conc 33.4 g/dL (31.6-35.5); Mean Corpuscular Hemoglobin 29.8 pg (28.0-33.3); Mean Corpuscular Volume 89.1 fL (83.0-100.0); Mean Platelet Volume 9.4 fL (9.4-12.4); Monocytes # 0.8 K/mcL (0.0-1.3); Monocytes % 8.3 %; Neutrophils # 6.6 K/mcL (1.6-8.9); Nucleated Red Blood Cells 0.2 /100 WBC (0); Platelet Count 257 K/mcL (140-400); Red Blood Count 3.93 M/mcL (4.19-5.50); Red Cell Distribution Width 13.5 % (11.5-14.5); Segmented Neutrophils % 68.8 %
[2017-11-21 04:34] LABS: BUN/Creatinine Ratio 37 (6-26); Blood Urea Nitrogen 28 mg/dL (8-23); Carbon Dioxide 27 mEq/L (23-29); Chloride 107 mEq/L (98-107); Glucose 157 mg/dL (70-105); Osmolality,Calculated 301 (280-300); Potassium 4.4 mEq/L (3.5-5.1); Sodium 141 mEq/L (136-145); eGFR For African Americans > 60 (> 60); eGFR For Non-African Americans > 60 (> 60)
[2017-11-21] MEDS: MethylPREDNISolone 40 MG/ML VIAL IVP SCH ×2 (05:57→17:27)
[2017-11-21] MEDS: Aspirin Enteric Coated 81 MG Tablet PO SCH (08:36)
[2017-11-21] MEDS: Finasteride 5 MG TABLET PO SCH (08:36)
[2017-11-21] MEDS: Apixaban 5 MG TABLET PO SCH ×2 (08:36→21:10)
[2017-11-21] MEDS: Nicotine 14 MG PATCH.TD24 TD SCH (08:37)
[2017-11-21] MEDS: cefTRIAXone 1,000 MG in Water for inj. (sterile) 20 ML 10 ML IVP SCH (17:26)
[2017-11-21] MEDS ORDERED: Azithromycin 250 MG TABLET PO SCH (18:00)
--- NOTE | 2017-11-21 18:14 | Internal Med Progress Note ---
Date of Encounter: 11/21/17 Time of Encounter: 09:30 - Assessment and plan (1) Pneumonia Current Visit: Yes Status: Acute Assessment and plan: Zithromax completed today, Rocephin has been stopped, will continue Omnicef 300mg po bid. No leukocytosis, pt is afebrile, no tachycardia or hypotension. Continue O2 as needed to maintain sats greater than 92%. Continue breathing treatments scheduled Blood cultures negative 2 Chest X-Ray 11/16/17 14:43 IMPRESSION: Left lower lobe infiltrate possibly representing pneumonia D/ / Frederick Vigil MD / Frederick Vigil MD Interpreting Provider: Frederick Vigil MD Chest CTA 11/17/17 10:11 IMPRESSION: 1. No evidence of a pulmonary embolism. 2. There is minimal unchanged patchy opacification of the right middle lobe. 3. Dependent atelectasis within the lower lobes, left greater than right. 4. Scarring of the lingula. D/ / Don Galvez MD / Don Galvez MD Interpreting Provider: Don Galvez MD Qualifiers: Pneumonia type: due to unspecified organism Laterality: left Lung location: lower lobe of lung Qualified Code(s): J18.1 - Lobar pneumonia, unspecified organism (2) DVT prophylaxis Current Visit: Yes Status: Acute Assessment and plan: Eliquis. (3) COPD exacerbation Current Visit: Yes Status: Acute Assessment and plan: Mild acute exacerbation complicated by pneumonia. Plan as above. Will complete Solumedrol tonight and switch to Prednisone and taper tomorrow. (4) CAD (coronary artery disease) Current Visit: Yes Status: Acute Assessment and plan: Denies chest pain. Continue ASA, statin, BB, Eliquis. Qualifiers: Coronary Disease-Associated Artery/Lesion type: [place] artery [place] vs. transplanted heart: [place] heart Associated angina: without angina Qualified Code(s): I25.10 - Atherosclerotic heart disease of [place] coronary artery without angina pectoris (5) Atrial fibrillation with RVR Current Visit: Yes Status: Chronic Assessment and plan: No prior history. Pt now NSR. Continue Eliquis after discharge. (6) Weakness Current Visit: Yes Status: Acute Assessment and plan: PT/OT recommend SNF/ECF after discharge for rehab. initially, patient was agreeable, but did not get into the facility where he wanted to go. At that point he stated that he did not want to go to the ECF and was agreeable to home health. Pt was encouraged to get up and ambulate in the hallway today, he did well pushing a wheelchair. He has declined home health at this time. He states that he has good support at home with his family and a live-in caregiver and does not require extra help. He is alert and oriented and able to make his own decisions. (7) Urinary retention Current Visit: Yes Status: Acute Assessment and plan: Continue Flomax. Patient to have Ravi upon discharge, will need to follow up with urology for void trial 7 days after discharge. (8) Tachycardia with heart rate 100-120 beats per minute Current Visit: Yes Status: Resolved - Time Spent With Patient Total time spent is greater than 50% in coordination of care (as documented) at patient's floor/unit and/or counseling patient: less than 15 minutes - Subjective Interval history: Pt was seen and assessed at bedside at 0930. He was drowsy, aroused easily to verbal, answer questions appropriately. He denies headache, n/v, abdominal pain , chest pain or SOB. He states that he is feeling better and is adamant that he wants to go home with home health and with his family. - Constitutional Vitals: Temp Pulse Resp BP Pulse Ox 97.6 F 62 18 145/69 93 11/21/17 15:02 11/21/17 15:02 11/21/17 15:59 11/21/17 15:02 11/21/17 15:59 General appearance: Present: cooperative, A&O X 2, pleasant, no acute distress, answers questions appropriately - Head Head exam: Present: atraumatic, normal inspection, normocephalic - Eye Eye exam: Present: normal appearance, conjuntiva pink, sclera anicteric - Neck Neck exam general surgery: Present: supple, trachea midline. Absent: lymphadenopathy - Respiratory Respiratory exam: Present: CTAB. Absent: accessory muscle use, rales, rhonchi, wheezes - Cardiovascular Cardiovascular exam: Present: RRR, +S1, +S2. Absent: diastolic murmur, gallop, rubs, systolic murmur - GI/Abdominal GI/Abdominal exam: Present: normal bowel sounds, soft. Absent: distended, hepatomegaly, tenderness - Extremities Exam Extremities exam: Present: normal capillary refill, normal inspection, warm, radial pulses palpable and symmetrical. Absent: calf tenderness, cyanotic, pedal edema, tenderness - Neurological Exam Neurological exam: Present: alert, oriented X3, no focal deficits. Absent: facial droop, speech deficit - Skin Skin exam: Present: dry, intact, normal color, warm. Absent: rash Internal Medicine: Result - Labs CBC & Chem 7: 11/21/17 03:55 11/21/17 03:55 Labs: Short CBC 11/21/17 Range/Units 03:55 WBC 9.6 (4.3-11.1) K/mcL Hgb 11.7 L (12.9-16.9) g/dL Hct 35.0 L (37.5-50.1) % Plt Count 257 (140-400) K/mcL Neutrophils # 6.6 (1.6-8.9) K/mcL BMP 11/21/17 03:55 Sodium 141 Potassium 4.4 Chloride 107 Carbon Dioxide 27 BUN 28 H Creatinine 0.75 Glucose 157 H Calcium 9.0 - ABG Interpretation ABG results: ABG ABG pH 7.40 pH Units (7.32-7.45) 11/17/17 10:01 ABG pCO2 44 mmHg (35-45) 11/17/17 10:01 ABG pO2 71 mmHg (85-104) L 11/17/17 10:01 ABG O2 Saturation 94 % (95-98) L 11/17/17 10:01 Consult Discharge Plan - Plan Referrals: Glenda Benjamin DO [Primary Care Provider] -
[2017-11-21] MEDS: Cefdinir 300 MG CAPSULE PO SCH (21:09)
[2017-11-21] MEDS: Mirtazapine 15 MG TABLET PO SCH (21:10)
[2017-11-22] MEDS: Albuterol 2.5 MG/3 ML NEBULIZER IH SCH ×4 (03:59→15:42)
[2017-11-22] MEDS: Ipratropium/Albuterol Neb 3 ML IH SCH ×3 (04:20→15:27)
[2017-11-22 05:53] LABS: Basophils # 0.1 K/mcL (0.0-0.2); Basophils % 0.5 %; Hematocrit 36.8 % (37.5-50.1); Hemoglobin 12.6 g/dL (12.9-16.9); Immature Granulocytes % 4.9 % (0-4); Lymphocytes # 1.8 K/mcL (0.6-4.6); Lymphocytes % 17.6 %; Mean Corpuscular HGB Conc 34.2 g/dL (31.6-35.5); Mean Corpuscular Hemoglobin 30.3 pg (28.0-33.3); Mean Corpuscular Volume 88.5 fL (83.0-100.0); Mean Platelet Volume 9.4 fL (9.4-12.4); Monocytes # 0.8 K/mcL (0.0-1.3); Monocytes % 7.4 %; Neutrophils # 7.1 K/mcL (1.6-8.9); Platelet Count 243 K/mcL (140-400); Red Blood Count 4.16 M/mcL (4.19-5.50); Red Cell Distribution Width 13.6 % (11.5-14.5); Segmented Neutrophils % 69.6 %
[2017-11-22] MEDS: MethylPREDNISolone 40 MG/ML VIAL IVP SCH (05:54)
[2017-11-22 06:06] LABS: BUN/Creatinine Ratio 31 (6-26); Blood Urea Nitrogen 25 mg/dL (8-23); Calcium 8.9 mg/dL (8.6-10.3); Carbon Dioxide 24 mEq/L (23-29); Chloride 107 mEq/L (98-107); Glucose 173 mg/dL (70-105); Osmolality,Calculated 299 (280-300); Potassium 4.7 mEq/L (3.5-5.1); Sodium 140 mEq/L (136-145); eGFR For African Americans > 60 (> 60); eGFR For Non-African Americans > 60 (> 60)
[2017-11-22] MEDS ORDERED: predniSONE 20 MG TABLET PO SCH (09:00)
[2017-11-22] MEDS: Cefdinir 300 MG CAPSULE PO SCH (10:22)
[2017-11-22] MEDS: Aspirin Enteric Coated 81 MG Tablet PO SCH (10:22)
[2017-11-22] MEDS: Apixaban 5 MG TABLET PO SCH (10:22)
[2017-11-22] MEDS: Finasteride 5 MG TABLET PO SCH (10:24)
[2017-11-22] MEDS: Nicotine 14 MG PATCH.TD24 TD SCH (10:24)
--- NOTE | 2017-11-22 12:08 | Discharge Summary ---
- NOTES TO OUTPATIENT PROVIDER Notes to Outpatient Provider: Pt has curtis 2/2 urinary retention. Pt will need to follow up with urololgy for void trial. PT/OT recommended ECF placement, pt declined and also declined home health. Family is aware and states that he has support to care for him adequately at home. Pt treated for pneumonia, COPD exacerbation. Will finish Omnicef 300mg po BID x 4 days. Date of Encounter: 11/22/17 Time of Encounter: 09:50 - Discharge Diagnosis (1) Pneumonia Priority: Primary Status: Acute Assessment and Plan: Finish Omnicef 300mg po bid after discharge. Pt has Duonebs at home. 02 at home Qualifiers: Pneumonia type: due to unspecified organism Laterality: left Lung location: lower lobe of lung Qualified Code(s): J18.1 - Lobar pneumonia, unspecified organism (2) DVT prophylaxis Priority: Secondary Status: Acute Assessment and Plan: Eliquis. Continue home dose. (3) COPD exacerbation Priority: Secondary Status: Acute Assessment and Plan: Mild acute exacerbation complicated by pneumonia. Continue Duonebs and 02 at home. Continue antibiotics and steroid taper. (4) CAD (coronary artery disease) Priority: Secondary Status: Chronic Assessment and Plan: Denies chest pain. Chronic. Continue ASA, statin, BB, Eliquis. Qualifiers: Coronary Disease-Associated Artery/Lesion type: [place] artery [place] vs. transplanted heart: [place] heart Associated angina: without angina Qualified Code(s): I25.10 - Atherosclerotic heart disease of [place] coronary artery without angina pectoris (5) Atrial fibrillation with RVR Priority: Secondary Status: Chronic Assessment and Plan: No prior history. NSR. Continue Eliquis after discharge. Can follow with cardiology after discharge if symptoms return. (6) Weakness Priority: Secondary Status: Acute Assessment and Plan: Pt has declined ECF placement and also has declined home health. Pt states that he has family at home who care for him. Family agrees that they are able to provide care to him at this time. Pt ambulated around the department yesterday with minimal difficulty. Pt will go home and family is aware that they can speak with PCP if they decide that they need help at a later date. (7) Urinary retention Priority: Secondary Status: Acute Assessment and Plan: Keep curtis cathether, follow with urology as scheduled for void trial. (8) Tachycardia with heart rate 100-120 beats per minute Priority: Secondary Status: Resolved Assessment and Plan: Resolved. Hospital course: Mr. Chu is a 81 year old male - Time Spent with Patient Total time spent providing and/or coordinating discharge services: - Discharge Medications Prescriptions: Apixaban [Eliquis] 5 mg PO BID #60 tablet Cefdinir [Omnicef] 300 mg PO BID #4 capsule predniSONE [PredniSONE] 10 mg PO DAILY #27 tablet Tamsulosin [Flomax] 0.4 mg PO DAILY #14 capsule Home Medications: Albuterol Sulfate [Ventolin Hfa] 2 puff IH Q4H PRN 04/27/17 [History] Aspirin Enteric Coated [Aspirin EC] 81 mg PO DAILY 04/27/17 [History] Carvedilol [Coreg] 6.25 mg PO DAILY 04/27/17 [History] Citalopram Hydrobromide [Citalopram HBr] 20 mg PO DAILY 04/27/17 [History] Clopidogrel [Plavix] 75 mg PO DAILY 04/27/17 [History] Finasteride [Proscar] 5 mg PO DAILY 04/27/17 [History] Losartan [Cozaar] 25 mg PO DAILY 04/27/17 [History] Mirtazapine [Remeron] 30 mg PO HS 04/27/17 [History] Pravastatin Sodium [Pravachol] 40 mg PO HS 04/27/17 [History] Tiotropium [Spiriva] 18 mcg IH DAILY 04/27/17 [History] Furosemide [Lasix] 20 mg PO DAILY #30 tablet 05/01/17 [Rx] Potassium Chloride 8 meq PO DAILY #30 tablet.er 05/01/17 [Rx] Ipratropium/Albuterol Neb [Duoneb] 3 ml IH Q4HR 11/16/17 [History] Nicotine Patch [Nicoderm] 14 mg TD DAILY 11/16/17 [History] Apixaban [Eliquis] 5 mg PO BID #60 tablet 11/22/17 [Rx] Cefdinir [Omnicef] 300 mg PO BID #4 capsule 11/22/17 [Rx] Tamsulosin [Flomax] 0.4 mg PO DAILY #14 capsule 11/22/17 [Rx] predniSONE [PredniSONE] 10 mg PO DAILY #27 tablet 11/22/17 [Rx] Allergies/Adverse Reactions: 3 Allergy/AdvReac Type Severity Reaction Status Date / Time No Known Allergies Allergy Verified 11/08/17 18:00 Date of admission: 11/16/17 19:40 Primary care physician: Selam Almendarez Consults: 11/17/17 10:12 Consult to Cardiology [CONS] Routine Comment: Consulting Provider: [facility] [place] Reason for Consult: tachycardia, cad, afib, pacer Time Notified: 13:29 Call Completed: Yes 11/18/17 08:35 Consult to Occupational Therapy [CONS] Routine Comment: Evaluate, develop and implement POC Reason for Consult: eval and treat Does patient have active BEDREST order?: No Is patient medically & hemodynamically stable?: Yes Consult to Physical Therapy [CONS] Routine Comment: Evaluate, develop and implement POC Reason for Consult: eval and treat Does patient have active BEDREST order?: No Is patient medically & hemodynamically stable?: Yes Consult to [facility] Doctor [CONS] Routine Reason for SW Consult: home needs 11/18/17 13:53 Consult to Urology [CONS] Routine Consulting Provider: Urology [facility] Reason for Consult: urinary retention Time Notified: 13:54 Call Completed: Yes Discharging clinician: Judie Olivia Anticipated date of discharge: 11/22/17 - Constitutional Vitals: Temp Pulse Resp BP Pulse Ox 97.3 F L 60 16 139/58 94 11/22/17 11:23 11/22/17 11:23 11/22/17 11:23 11/22/17 11:23 11/22/17 11:23 General appearance: Present: cooperative, A&O X 2, pleasant, no acute distress, answers questions appropriately - Head Head exam: Present: atraumatic, normal inspection, normocephalic - Eye Eye exam: Present: normal appearance, conjuntiva pink, sclera anicteric - Neck Neck exam general surgery: Present: supple, trachea midline. Absent: lymphadenopathy, tenderness - Respiratory Respiratory exam: Present: CTAB. Absent: accessory muscle use, rales, respiratory distress, rhonchi, wheezes - Cardiovascular Cardiovascular exam: Present: RRR, +S1, +S2. Absent: diastolic murmur, gallop, rubs, systolic murmur - GI/Abdominal GI/Abdominal exam: Present: normal bowel sounds, soft. Absent: distended, hepatomegaly, tenderness - Extremities Exam Extremities exam: Present: normal capillary refill, warm, radial pulses palpable and symmetrical. Absent: calf tenderness, cyanotic, pedal edema, tenderness - Neurological Exam Neurological exam: Present: alert, altered, no focal deficits. Absent: oriented X3, facial droop, speech deficit - Skin Skin exam: Present: dry, intact, normal color, warm. Absent: rash - Patient Status Disposition: Home, Self-Care Condition: Good Functional capacity at discharge: uses cane/walker Overall status at discharge: patient is progressing back to baseline - Discharge Instructions Follow Up With: Glenda Benjamin DO [Primary Care Provider] - Additional Instructions: Please follow up with urology as scheduled to have the cutris removed Please follow up with your PCP in the next 7-10 days for a recheck to make sure you are progressing well. Please take your medications as directed. I have called prescriptions in to [facility] for you. Resume your other normal medications Resume your normal diet and actvities as tolerated. If you decide that you would like to have home health, please call your PCP office and they will be able to help you. - Diet and Activity Activity: wear oxygen at all times Diet: advance to your usual diet
[2017-11-22 15:06] VITALS: BP 145/69
== END 2017-11-22 17:05 | disposition home or self-care (01) | DRG 190 ==
LOC: 3BNU 14:34 → EMEROO 14:34 → 3BNU 20:25
PROVIDERS: ADMIT Family Medicine; ATTEND Family Medicine

== ENCOUNTER 2018-12-24 07:54 | Observation (INO) ==
[2018-12-24] MEDS ORDERED: 0.9 % Sodium Chloride 1,000 ML IVC ONE (08:09)
[2018-12-24] MEDS ORDERED: Ipratropium/Albuterol Neb 3 ML IH ONE (08:16)
[2018-12-24] MEDS ORDERED: methylPREDNISolone 125 MG/2 ML VIAL IVP ONE (08:16)
--- NOTE | 2018-12-24 08:21 | Emergency Department Note ---
Disposition Clinical Impression: COPD exacerbation, Weakness Altered mental status Qualifiers: Altered mental status type: unspecified Qualified Code(s): R41.82 - Altered mental status, unspecified Disposition: Admitted As Inpatient Condition: Good Referrals: Glenda Benjamin DO [Primary Care Provider] - Forms: ED Satisfaction Letter Time of Disposition: 10:53 Altered Mental Status HPI - General Chief Complaint: ED Altered Mental Status Stated Complaint: "AMS,fall,dehydration" Time Seen by Provider: 12/24/18 08:01 Source: patient Mode of arrival: wheelchair Limitations: no limitations Nursing Notes Reviewed: Yes Vital Signs Reviewed: Yes - History of Present Illness HPI Narrative: 83-year-old male with a history of CAD with bypass, AICD, COPD and dementia presents for evaluation of altered mental status. Patient's history provided via the family at bedside. Patient family states he has become more altered over the past couple days. Family states that he is only complaining of cramping. Does have cramping of the lower legs. Patient denies any fevers or cough. No abdominal pain. No nausea vomiting. Family also states that he recently fell but denies any LOC. Patient's been ambulatory since. Patient does live at home with family. States the last time the patient was having altered mental status is discovered that he had a UTI. - Related Data Home Medications Medication Instructions Recorded Confirmed Albuterol Sulfate [Ventolin Hfa] 2 puff IH Q4H PRN 04/27/17 11/16/17 Aspirin Enteric Coated [Aspirin EC] 81 mg PO DAILY 04/27/17 11/16/17 Carvedilol [Coreg] 6.25 mg PO DAILY 04/27/17 11/16/17 Citalopram Hydrobromide 20 mg PO DAILY 04/27/17 11/16/17 [Citalopram HBr] Clopidogrel [Plavix] 75 mg PO DAILY 04/27/17 11/16/17 Finasteride [Proscar] 5 mg PO DAILY 04/27/17 11/16/17 Losartan [Cozaar] 25 mg PO DAILY 04/27/17 11/16/17 Mirtazapine [Remeron] 30 mg PO HS 04/27/17 11/16/17 Pravastatin Sodium [Pravachol] 40 mg PO HS 04/27/17 11/16/17 Tiotropium [Spiriva] 18 mcg IH DAILY 04/27/17 11/16/17 Ipratropium/Albuterol Neb [Duoneb] 3 ml IH Q4HR 11/16/17 11/16/17 Nicotine Patch [Nicoderm] 14 mg TD DAILY 11/16/17 11/16/17 Previous Rx's Medication Instructions Recorded Furosemide [Lasix] 20 mg PO DAILY #30 tablet 05/01/17 Potassium Chloride 8 meq PO DAILY #30 tablet.er 05/01/17 Apixaban [Eliquis] 5 mg PO BID #60 tablet 11/22/17 Cefdinir [Omnicef] 300 mg PO BID #4 capsule 11/22/17 Tamsulosin [Flomax] 0.4 mg PO DAILY #14 capsule 11/22/17 predniSONE [PredniSONE] 10 mg PO DAILY #27 tablet 11/22/17 Allergies Allergy/AdvReac Type Severity Reaction Status Date / Time No Known Allergies Allergy Verified 11/08/17 18:00 All systems ED: reviewed and negative except as stated. Constitutional: Denies: fever Cardiovascular: Denies: chest pain Respiratory: Denies: cough, dyspnea Gastrointestinal: Denies: nausea, vomiting Past Medical History - Past Medical History Source: patient Medical history: Reports: COPD, coronary artery disease, dementia, hypertension Surgical history: Reports: coronary bypass (CABG), pacemaker/AICD Psychiatric history: Reports: depression - Social History Smoking Status: Current every day smoker Smokeless Tobacco Status: No Alcohol use: Reports: unknown, occasionally Drug use: Reports: none Physical Exam - General Limitations: no limitations General appearance: alert, in no apparent distress - Head Head exam: atraumatic, normocephalic, normal inspection - Eye Eye exam: Present: normal appearance, PERRL, EOMI - ENT ENT exam: normal exam, mucous membranes dry - Neck Neck exam: Present: normal inspection - Chest Chest inspection: Present: normal inspection, symmetric chest wall rise - Respiratory Respiratory exam: Present: wheezes (Respiratory respiratory wheezes throughout), accessory muscle use, prolonged expiratory phase - Cardiovascular Cardiovascular exam: Present: regular rate, normal rhythm. Absent: normal heart sounds - Abdominal Exam Abdominal exam: Present: soft, Non-Tender - Extremities Exam Extremities exam: Present: normal inspection. Absent: pedal edema - Expanded Lower Extremity Exam Hip/Pelvis exam: Present: normal inspection, full ROM. Absent: tenderness Upper leg exam: Present: normal inspection Knee exam: Present: normal inspection Lower leg exam: Present: normal inspection Neurovascular/Tendon exam: Present: normal capillary refill - Back Exam Back exam: Present: normal inspection - Neurological Exam Neurological exam: Present: alert, CN II-XII intact - Skin Skin exam: Present: warm, dry, intact, normal color Course Course Narrative: Patient presents for evaluation of altered mental status. Patient does have baseline dementia raised acutely altered past couple days. We will obtain basic labs. Patient does have expiratory wheeze on lung exam were provided aerosols as well as steroids. Also obtain CT gead, chest x-ray disposition likely admission. - Reevaluation(s) Reevaluation #1: Patient's repeat EKG shows unchanged from prior. Normal sinus rhythm normal axis. Does have T-wave inversions in lead 3. Patient also has isolated ST e levation in V2. Time: 09:04 Reevaluation #2: Patient seen and examined. No family at bedside. Discussed chronic care of the patient who does appear confused. Patient will get admission urinalysis pending. Time: 10:17 Vital Signs Temperature 98.0 F 12/24/18 08:07 Pulse Rate 74 12/24/18 08:07 Respiratory Rate 22 12/24/18 08:07 Blood Pressure 144/69 12/24/18 08:07 O2 Sat by Pulse Oximetry 96 12/24/18 08:07 Temperature 98.0 F 12/24/18 08:07 Pulse Rate 87 12/24/18 10:42 Respiratory Rate 14 12/24/18 08:25 Blood Pressure 121/74 12/24/18 10:42 O2 Sat by Pulse Oximetry 98 12/24/18 10:42 Oxygen Delivery Oxygen Delivery Nasal Cannula Altered Mental Status - [facility] Narrative Medical decision making narrative: Patient presented for concerns of altered mental status. Does have baseline dementia but does note be acutely altered over the past couple days per family. Does have recent history of a fall neuroimaging shows no acute intracranial hemorrhage. No other evidence of trauma. Patient has a nonfocal neurologic exam. Patient does have a history of COPD he was given aerosols and steroids. Patient's basic labs including troponin are clinically unremarkable. Patient will be admitted for generalized weakness altered mental status. Patient likely benefit from social work program coordinator and discharge planning. - Lab Data Lab results reviewed: Yes I reviewed the patient's lab results. Result diagrams: 12/24/18 08:13 12/24/18 08:13 Lab Results 12/24/18 12/24/18 12/24/18 Range/Units 08:13 08:13 08:13 WBC 6.5 (4.3-11.1) K/mcL RBC 4.01 L (4.19-5.50) M/mcL Hgb 12.2 L (12.9-16.9) g/dL Hct 36.3 L (37.5-50.1) % MCV 90.5 (83.0-100.0) fL MCH 30.4 (28.0-33.3) pg MCHC 33.6 (31.6-35.5) g/dL RDW 13.2 (11.5-14.5) % Plt Count 148 (140-400) K/mcL MPV 9.6 (9.4-12.4) fL Immature Gran % 0.3 (0-4) % Seg Neutrophils % 58.6 % Lymphocytes % 28.5 % Monocytes % 11.1 % Eosinophils % 1.2 % Basophils % 0.3 % Neutrophils # 3.8 (1.6-8.9) K/mcL Lymphocytes # 1.9 (0.6-4.6) K/mcL Monocytes # 0.7 (0.0-1.3) K/mcL Eosinophils # 0.1 (0.0-0.6) K/mcL Basophils # 0.0 (0.0-0.2) K/mcL PT (9.4-12.1) Seconds INR Sodium 133 L (136-145) mEq/L Potassium 3.9 (3.5-5.1) mEq/L Chloride 104 (98-107) mEq/L Carbon Dioxide 28 (23-29) mEq/L BUN 21 (8-23) mg/dL Creatinine 1.05 (0.70-1.30) mg/dL Est GFR ( Amer) > 60 (> 60) Est GFR (Non-Af Amer) > 60 (> 60) BUN/Creatinine Ratio 20 (6-26) Glucose 137 H (70-105) mg/dL Calculated Osmolality 281 (280-300) Lactic Acid 1.1 (0.5-2.2) mmol/L Calcium 9.2 (8.6-10.3) mg/dL Total Bilirubin 1.7 H (0.3-1.0) mg/dL AST 15 (13-39) Units/L ALT 6 L (7-52) Units/L Alkaline Phosphatase 82 (34-104) Units/L Creatine Kinase 235 H (30-223) Units/L Troponin I < 0.03 (< 0.04) ng/mL Serum Total Protein 6.9 (6.4-8.9) g/dL Albumin 4.4 (3.5-5.7) g/dL Globulin 2.5 (2.4-3.5) g/dL Albumin/Globulin Ratio 1.8 (1.1-2.2) Urine Color (Yellow) Urine Clarity (Clear) Urine pH (5.0-8.0) pH Units Ur Specific [place] (1.010-1.025) Urine Protein (Neg-Trace) mg/dL Urine Glucose (UA) (Normal) mg/dL Urine Ketones (Negative) mg/dL Urine Blood (Negative) Urine Nitrite (Negative) Urine Bilirubin (Negative) Urine Urobilinogen (Normal) mg/dL Ur Leukocyte Esterase (Negative) Urine Microscopic RBC (0-3) per hpf Urine Microscopic WBC (0-3) per hpf Ur Squamous Epith Cells (None-Few) per lpf Urine Bacteria (None-Few) per hpf Hyaline Casts (None-Few) per lpf Urine Yeast (None Seen) per hpf Ur Culture Indicated? (NO) 12/24/18 12/24/18 Range/Units 08:28 09:30 WBC (4.3-11.1) K/mcL RBC (4.19-5.50) M/mcL Hgb (12.9-16.9) g/dL Hct (37.5-50.1) % MCV (83.0-100.0) fL MCH (28.0-33.3) pg MCHC (31.6-35.5) g/dL RDW (11.5-14.5) % Plt Count (140-400) K/mcL MPV (9.4-12.4) fL Immature Gran % (0-4) % Seg Neutrophils % % Lymphocytes % % Monocytes % % Eosinophils % % Basophils % % Neutrophils # (1.6-8.9) K/mcL Lymphocytes # (0.6-4.6) K/mcL Monocytes # (0.0-1.3) K/mcL Eosinophils # (0.0-0.6) K/mcL Basophils # (0.0-0.2) K/mcL PT 13.0 H (9.4-12.1) Seconds INR 1.2 Sodium (136-145) mEq/L Potassium (3.5-5.1) mEq/L Chloride (98-107) mEq/L Carbon Dioxide (23-29) mEq/L BUN (8-23) mg/dL Creatinine (0.70-1.30) mg/dL Est GFR ( Amer) (> 60) Est GFR (Non-Af Amer) (> 60) BUN/Creatinine Ratio (6-26) Glucose (70-105) mg/dL Calculated Osmolality (280-300) Lactic Acid (0.5-2.2) mmol/L Calcium (8.6-10.3) mg/dL Total Bilirubin (0.3-1.0) mg/dL AST (13-39) Units/L ALT (7-52) Units/L Alkaline Phosphatase (34-104) Units/L Creatine Kinase (30-223) Units/L Troponin I (< 0.04) ng/mL Serum Total Protein (6.4-8.9) g/dL Albumin (3.5-5.7) g/dL Globulin (2.4-3.5) g/dL Albumin/Globulin Ratio (1.1-2.2) Urine Color Yellow (Yellow) Urine Clarity Cloudy A (Clear) Urine pH 5.0 (5.0-8.0) pH Units Ur Specific [place] 1.015 (1.010-1.025) Urine Protein Trace (Neg-Trace) mg/dL Urine Glucose (UA) Normal (Normal) mg/dL Urine Ketones Negative (Negative) mg/dL Urine Blood Negative (Negative) Urine Nitrite Negative (Negative) Urine Bilirubin Negative (Negative) Urine Urobilinogen Normal (Normal) mg/dL Ur Leukocyte Esterase Trace H (Negative) Urine Microscopic RBC 0-3 (0-3) per hpf Urine Microscopic WBC 5-15 H (0-3) per hpf Ur Squamous Epith Cells Many H (None-Few) per lpf Urine Bacteria None Seen (None-Few) per hpf Hyaline Casts Few (None-Few) per lpf Urine Yeast Many H (None Seen) per hpf Ur Culture Indicated? YES A (NO) - Radiology Data Radiology results reviewed: Yes I reviewed the patient's radiology results. Chest X-Ray 12/24/18 08:10 IMPRESSION: 1. No acute cardiopulmonary disease. D/ / 12/24/2018 08:30:46 Bull Braun MD / cecilia Interpreting Provider: Bull Braun MD Chest X-Ray 12/24/18 08:10 IMPRESSION: 1. No acute cardiopulmonary disease. D/ / 12/24/2018 08:30:46 Bull Braun MD / cecilia Interpreting Provider: Bull Braun MD Head CT 12/24/18 08:10 IMPRESSION: No acute intracranial abnormality. Sequela of chronic small vessel ischemic change. D/ / 12/24/2018 09:30:12 Deandre Mccurdy MD / galoyer Interpreting Provider: Deandre Mccurdy MD - EKG Data EKG attestation: Yes I reviewed and interpreted this EKG. EKG shows normal: sinus rhythm Rate: normal Rhythm: NSR [place]/QRS: normal ST segment depression in: v2 T wave inversions: aVL When compared to previous EKG there are: changes noted Interpretation: nonspecific ST-T wave changes TPA Checklist - LKW: 3-4.5 hrs Add. Warnings/Precautions Patient/family understanding: The patient/family members have been counseled and understood the risk, benefit, and alternatives of treatment. Aarti - Aarti Situation: Demographics Background: Presenting Complaint Assessment: Vital Signs, Course and respsone to treatment, Patient/Family Expectation Recommendation: Barrier(s) to disposition, Recommendation based on pending studies, treatments, or consults Aarti Report Given to: Hospitalist Aarti Skinner Time: 10:53
[2018-12-24 08:32] LABS: Basophils % 0.3 %; Eosinophils # 0.1 K/mcL (0.0-0.6); Eosinophils % 1.2 %; Hematocrit 36.3 % (37.5-50.1); Hemoglobin 12.2 g/dL (12.9-16.9); Immature Granulocytes % 0.3 % (0-4); Lymphocytes # 1.9 K/mcL (0.6-4.6); Lymphocytes % 28.5 %; Mean Corpuscular HGB Conc 33.6 g/dL (31.6-35.5); Mean Corpuscular Hemoglobin 30.4 pg (28.0-33.3); Mean Corpuscular Volume 90.5 fL (83.0-100.0); Mean Platelet Volume 9.6 fL (9.4-12.4); Monocytes # 0.7 K/mcL (0.0-1.3); Monocytes % 11.1 %; Neutrophils # 3.8 K/mcL (1.6-8.9); Platelet Count 148 K/mcL (140-400); Red Blood Count 4.01 M/mcL (4.19-5.50); Red Cell Distribution Width 13.2 % (11.5-14.5); Segmented Neutrophils % 58.6 %
[2018-12-24 08:45] LABS: Alanine Aminotransferase 6 Units/L (7-52); Albumin 4.4 g/dL (3.5-5.7); Albumin/Globulin Ratio 1.8 (1.1-2.2); Alkaline Phosphatase 82 Units/L (34-104); Aspartate Amino Transferase 15 Units/L (13-39); BUN/Creatinine Ratio 20 (6-26); Bilirubin,Total 1.7 mg/dL (0.3-1.0); Blood Urea Nitrogen 21 mg/dL (8-23); Calcium 9.2 mg/dL (8.6-10.3); Carbon Dioxide 28 mEq/L (23-29); Chloride 104 mEq/L (98-107); Creatine Kinase 235 Units/L (30-223); Globulin 2.5 g/dL (2.4-3.5); Glucose 137 mg/dL (70-105); Osmolality,Calculated 281 (280-300); Potassium 3.9 mEq/L (3.5-5.1); Sodium 133 mEq/L (136-145); Total Protein 6.9 g/dL (6.4-8.9); Troponin I < 0.03 ng/mL (< 0.04); eGFR For Non-African Americans > 60 (> 60)
[2018-12-24 08:52] LABS: INR 1.2
--- NOTE | 2018-12-24 09:56 | Emergency Department Note ---
Disposition Clinical Impression: COPD exacerbation, Weakness Disposition: Admitted As Inpatient Condition: Good Referrals: Glenda Benjamin DO [Primary Care Provider] - Forms: ED Satisfaction Letter Time of Disposition: 09:57 General Adult HPI - General Chief complaint: ED Altered Mental Status Stated complaint: "AMS,fall,dehydration" Time Seen by Provider: 12/24/18 08:01 Source: patient Mode of arrival: wheelchair Limitations: no limitations - History of Present Illness Pain Scale: 0 - Related Data Home Medications Medication Instructions Recorded Confirmed Albuterol Sulfate [Ventolin Hfa] 2 puff IH Q4H PRN 04/27/17 11/16/17 Aspirin Enteric Coated [Aspirin EC] 81 mg PO DAILY 04/27/17 11/16/17 Carvedilol [Coreg] 6.25 mg PO DAILY 04/27/17 11/16/17 Citalopram Hydrobromide 20 mg PO DAILY 04/27/17 11/16/17 [Citalopram HBr] Clopidogrel [Plavix] 75 mg PO DAILY 04/27/17 11/16/17 Finasteride [Proscar] 5 mg PO DAILY 04/27/17 11/16/17 Losartan [Cozaar] 25 mg PO DAILY 04/27/17 11/16/17 Mirtazapine [Remeron] 30 mg PO HS 04/27/17 11/16/17 Pravastatin Sodium [Pravachol] 40 mg PO HS 04/27/17 11/16/17 Tiotropium [Spiriva] 18 mcg IH DAILY 04/27/17 11/16/17 Ipratropium/Albuterol Neb [Duoneb] 3 ml IH Q4HR 11/16/17 11/16/17 Nicotine Patch [Nicoderm] 14 mg TD DAILY 11/16/17 11/16/17 Previous Rx's Medication Instructions Recorded Furosemide [Lasix] 20 mg PO DAILY #30 tablet 05/01/17 Potassium Chloride 8 meq PO DAILY #30 tablet.er 05/01/17 Apixaban [Eliquis] 5 mg PO BID #60 tablet 11/22/17 Cefdinir [Omnicef] 300 mg PO BID #4 capsule 11/22/17 Tamsulosin [Flomax] 0.4 mg PO DAILY #14 capsule 11/22/17 predniSONE [PredniSONE] 10 mg PO DAILY #27 tablet 11/22/17 Allergies Allergy/AdvReac Type Severity Reaction Status Date / Time No Known Allergies Allergy Verified 11/08/17 18:00 Constitutional: Denies: fever Cardiovascular: Denies: chest pain Respiratory: Denies: cough, dyspnea Gastrointestinal: Denies: nausea, vomiting Past Medical History - Past Medical History Medical history: Reports: COPD, coronary artery disease, dementia, hypertension Surgical history: Reports: coronary bypass (CABG), pacemaker/AICD Psychiatric history: Reports: depression - Social History Smoking Status: Current every day smoker Smokeless Tobacco Status: No Alcohol use: Reports: unknown, occasionally Drug use: Reports: none Physical Exam - General Limitations: no limitations General appearance: alert, in no apparent distress Course Vital Signs Temperature 98.0 F 12/24/18 08:07 Pulse Rate 74 12/24/18 08:07 Respiratory Rate 22 12/24/18 08:07 Blood Pressure 144/69 12/24/18 08:07 O2 Sat by Pulse Oximetry 96 12/24/18 08:07 Temperature 98.0 F 12/24/18 08:07 Pulse Rate 85 12/24/18 09:07 Respiratory Rate 14 12/24/18 08:25 Blood Pressure 153/69 12/24/18 09:07 O2 Sat by Pulse Oximetry 100 12/24/18 09:07 Oxygen Delivery Oxygen Delivery Nasal Cannula Medical Decision Making - Lab Data Result diagrams: 12/24/18 08:13 12/24/18 08:13 Lab Results 12/24/18 12/24/18 12/24/18 Range/Units 08:13 08:13 08:13 WBC 6.5 (4.3-11.1) K/mcL RBC 4.01 L (4.19-5.50) M/mcL Hgb 12.2 L (12.9-16.9) g/dL Hct 36.3 L (37.5-50.1) % MCV 90.5 (83.0-100.0) fL MCH 30.4 (28.0-33.3) pg MCHC 33.6 (31.6-35.5) g/dL RDW 13.2 (11.5-14.5) % Plt Count 148 (140-400) K/mcL MPV 9.6 (9.4-12.4) fL Immature Gran % 0.3 (0-4) % Seg Neutrophils % 58.6 % Lymphocytes % 28.5 % Monocytes % 11.1 % Eosinophils % 1.2 % Basophils % 0.3 % Neutrophils # 3.8 (1.6-8.9) K/mcL Lymphocytes # 1.9 (0.6-4.6) K/mcL Monocytes # 0.7 (0.0-1.3) K/mcL Eosinophils # 0.1 (0.0-0.6) K/mcL Basophils # 0.0 (0.0-0.2) K/mcL PT (9.4-12.1) Seconds INR Sodium 133 L (136-145) mEq/L Potassium 3.9 (3.5-5.1) mEq/L Chloride 104 (98-107) mEq/L Carbon Dioxide 28 (23-29) mEq/L BUN 21 (8-23) mg/dL Creatinine 1.05 (0.70-1.30) mg/dL Est GFR ( Amer) > 60 (> 60) Est GFR (Non-Af Amer) > 60 (> 60) BUN/Creatinine Ratio 20 (6-26) Glucose 137 H (70-105) mg/dL Calculated Osmolality 281 (280-300) Lactic Acid 1.1 (0.5-2.2) mmol/L Calcium 9.2 (8.6-10.3) mg/dL Total Bilirubin 1.7 H (0.3-1.0) mg/dL AST 15 (13-39) Units/L ALT 6 L (7-52) Units/L Alkaline Phosphatase 82 (34-104) Units/L Creatine Kinase 235 H (30-223) Units/L Troponin I < 0.03 (< 0.04) ng/mL Serum Total Protein 6.9 (6.4-8.9) g/dL Albumin 4.4 (3.5-5.7) g/dL Globulin 2.5 (2.4-3.5) g/dL Albumin/Globulin Ratio 1.8 (1.1-2.2) 12/24/18 Range/Units 08:28 WBC (4.3-11.1) K/mcL RBC (4.19-5.50) M/mcL Hgb (12.9-16.9) g/dL Hct (37.5-50.1) % MCV (83.0-100.0) fL MCH (28.0-33.3) pg MCHC (31.6-35.5) g/dL RDW (11.5-14.5) % Plt Count (140-400) K/mcL MPV (9.4-12.4) fL Immature Gran % (0-4) % Seg Neutrophils % % Lymphocytes % % Monocytes % % Eosinophils % % Basophils % % Neutrophils # (1.6-8.9) K/mcL Lymphocytes # (0.6-4.6) K/mcL Monocytes # (0.0-1.3) K/mcL Eosinophils # (0.0-0.6) K/mcL Basophils # (0.0-0.2) K/mcL PT 13.0 H (9.4-12.1) Seconds INR 1.2 Sodium (136-145) mEq/L Potassium (3.5-5.1) mEq/L Chloride (98-107) mEq/L Carbon Dioxide (23-29) mEq/L BUN (8-23) mg/dL Creatinine (0.70-1.30) mg/dL Est GFR ( Amer) (> 60) Est GFR (Non-Af Amer) (> 60) BUN/Creatinine Ratio (6-26) Glucose (70-105) mg/dL Calculated Osmolality (280-300) Lactic Acid (0.5-2.2) mmol/L Calcium (8.6-10.3) mg/dL Total Bilirubin (0.3-1.0) mg/dL AST (13-39) Units/L ALT (7-52) Units/L Alkaline Phosphatase (34-104) Units/L Creatine Kinase (30-223) Units/L Troponin I (< 0.04) ng/mL Serum Total Protein (6.4-8.9) g/dL Albumin (3.5-5.7) g/dL Globulin (2.4-3.5) g/dL Albumin/Globulin Ratio (1.1-2.2) Attestation Statement - Attestation Attestation: I examined this patient and my medical decision-making was reviewed with the Resident Physician. I agree with the documented findings, disposition and treatment plan as described except to the extent set forth below. 83 year old male presnets to the ED with complaints of AMS and tends to appear as such when he has a UTI. Perfecto otherwise has COPD and appaers to have had an excerbation and he is wheezing and tachypneic at bedside and has moderately improved after breathing treatmnets. HCT negative, and otherwise appers moderately dehydrated. WE will admit to medicine
[2018-12-24 10:19] LABS: Bilirubin,Urine Negative (Negative); Blood,Urine Negative (Negative); Clarity,Urine Cloudy (Clear); Color,Urine Yellow (Yellow); Glucose,Urine (UA) Normal (Normal); Ketones,Urine Negative (Negative); Leukocyte Esterase,Urine Trace (Negative); Nitrite,Urine Negative (Negative); Protein,Urine Trace mg/dL (Neg-Trace); Specific Gravity,Urine 1.015 (1.010-1.025); Urobilinogen,Urine Normal (Normal)
[2018-12-24 10:22] LABS: Bacteria,Urine None Seen per hpf (None-Few); Hyaline Casts,Urine Few per lpf (None-Few); RBC,Urine 0-3 per hpf (0-3); Squamous Epithelial Cell,Urine Many per lpf (None-Few)
[2018-12-24 10:50] LABS: Yeast,Urine Many per hpf (None Seen)
[2018-12-24] MEDS ORDERED: Ondansetron 4 MG/2 ML VIAL IVP PRN (12:41)
[2018-12-24] MEDS ORDERED: Acetaminophen 325 MG TABLET PO PRN (12:41)
[2018-12-24] MEDS ORDERED: *HR* HYDROcodone/Acet 5/325 mg TABLET PO PRN (12:41)
[2018-12-24] MEDS ORDERED: Naloxone 0.4 MG/ML INJ IVP PRN (12:41)
[2018-12-24] MEDS ORDERED: 0.9 % Sodium Chloride 1,000 ML IVC SCH (12:45)
[2018-12-24] MEDS ORDERED: Fluconazole 200 MG/100 ML 100 MG/50 ML BAG IVPB SCH ×3 (15:00)
[2018-12-24] MEDS: Ipratropium/Albuterol Neb 3 ML IH SCH ×2 (15:23→20:30)
--- NOTE | 2018-12-24 16:05 | Internal Med History&Physical ---
Date of Encounter: 12/24/18 Time of Encounter: 15:30 Internal Medicine - H&P: HPI Chief complaint: AMS Admitted From: Emergency Dept Plans for Post Hospital Care: Home History of present illness: Mr. Chu is a 83 year old male with a history of CAD with bypass, AICD, COPD and dementia was brought into ER by family for evaluation of altered mental status. Pt is alert, awake and very confused. Patient is not following any comments. Unable to get any history from the patient. Most of the history I got here by reviewing patient's chart and ER records. As per patient family states he has become more altered over the past couple days. In the ER his UA showed yeast and possible bacteria too. He does look very weak, lethargic and dehydrated. Past Med Surg Social Fam HX - Past Medical History Medical history: COPD, coronary artery disease, dementia, hypertension Additional medical history: bladder cancer Psychiatric history: depression - Past Surgical History Surgical History: coronary bypass (CABG), pacemaker/AICD Additional surgical history: 2 cardiac stents , CA surgery years ago - Social History Smoking Status: Current every day smoker Smokeless Tobacco Status: No Alcohol use: unknown, occasionally Drug use: none - Family History Father Living Status: Hx Family Cardiac Disorders: Yes ([place]) Mother Living Status: Hx Family Cardiac Disorders: Yes ([place]) Internal Medicine - H&P: Meds Albuterol Sulfate [Ventolin Hfa] 2 puff IH Q4H PRN 04/27/17 [History] Aspirin Enteric Coated [Aspirin EC] 81 mg PO DAILY 04/27/17 [History] Carvedilol [Coreg] 6.25 mg PO DAILY 04/27/17 [History] Citalopram Hydrobromide [Citalopram HBr] 20 mg PO DAILY 04/27/17 [History] Clopidogrel [Plavix] 75 mg PO DAILY 04/27/17 [History] Finasteride [Proscar] 5 mg PO DAILY 04/27/17 [History] Losartan [Cozaar] 25 mg PO DAILY 04/27/17 [History] Mirtazapine [Remeron] 30 mg PO HS 04/27/17 [History] Pravastatin Sodium [Pravachol] 40 mg PO HS 04/27/17 [History] Tiotropium [Spiriva] 18 mcg IH DAILY 04/27/17 [History] Furosemide [Lasix] 20 mg PO DAILY #30 tablet 05/01/17 [Rx] Potassium Chloride 8 meq PO DAILY #30 tablet.er 05/01/17 [Rx] Ipratropium/Albuterol Neb [Duoneb] 3 ml IH Q4HR 11/16/17 [History] Nicotine Patch [Nicoderm] 14 mg TD DAILY 11/16/17 [History] Apixaban [Eliquis] 5 mg PO BID #60 tablet 11/22/17 [Rx] Cefdinir [Omnicef] 300 mg PO BID #4 capsule 11/22/17 [Rx] Tamsulosin [Flomax] 0.4 mg PO DAILY #14 capsule 11/22/17 [Rx] predniSONE [PredniSONE] 10 mg PO DAILY #27 tablet 11/22/17 [Rx] Allergy/AdvReac Type Severity Reaction Status Date / Time No Known Allergies Allergy Verified 11/08/17 18:00 All Systems PM: A 10-system review of systems was performed and is negative for pertinent findings except as documented above in the HPI. Review of systems: All the systems are reviewed everything is benign except the systems and symptoms I mentioned in the history of present illness.. Unable to do thorough review of systems since patient is not following any commands and unable to provide any history - Constitutional Vitals: Temp Pulse Resp BP Pulse Ox 97.9 F 84 14 145/69 98 12/24/18 15:24 12/24/18 15:24 12/24/18 15:25 12/24/18 15:24 12/24/18 15:25 General appearance: Present: A&O X 0, no acute distress Exam: a - Head Head exam: Present: atraumatic, normal inspection - Neck Neck exam general surgery: Present: supple - Respiratory Respiratory exam: Present: decreased breath sounds. Absent: rales, respiratory distress, rhonchi, wheezes - Cardiovascular Cardiovascular exam: Present: RRR, +S1, +S2. Absent: tachycardia - GI/Abdominal GI/Abdominal exam: Present: normal bowel sounds, soft. Absent: rebound, rigid, tenderness - Extremities Exam Extremities exam: Absent: calf tenderness, pedal edema, tenderness - Back Exam Back exam: Absent: CVA tenderness (L), CVA tenderness (R) - Neurological Exam Neurological exam: Present: altered Additional comments: Since pt is demented and not able to follow any commands, unable to do thorough neurological exam - Psychiatric Psychiatric exam: Present: anxious - Skin Skin exam: Absent: rash Internal Med - H&P Results - Labs CBC & Chem 7: 12/24/18 08:13 12/24/18 08:13 Labs: Short CBC 12/24/18 Range/Units 08:13 WBC 6.5 (4.3-11.1) K/mcL Hgb 12.2 L (12.9-16.9) g/dL Hct 36.3 L (37.5-50.1) % Plt Count 148 (140-400) K/mcL Neutrophils # 3.8 (1.6-8.9) K/mcL BMP 12/24/18 08:13 Sodium 133 L Potassium 3.9 Chloride 104 Carbon Dioxide 28 BUN 21 Creatinine 1.05 Glucose 137 H Calcium 9.2 Cardiac Enzymes 12/24/18 Range/Units 08:13 Troponin I < 0.03 (< 0.04) ng/mL Liver Function 12/24/18 Range/Units 08:13 Total Bilirubin 1.7 H (0.3-1.0) mg/dL AST 15 (13-39) Units/L ALT 6 L (7-52) Units/L Alkaline Phosphatase 82 (34-104) Units/L Albumin 4.4 (3.5-5.7) g/dL Urine 12/24/18 Range/Units 09:30 Urine Color Yellow (Yellow) Urine Clarity Cloudy A (Clear) Urine pH 5.0 (5.0-8.0) pH Units Ur Specific [place] 1.015 (1.010-1.025) Urine Protein Trace (Neg-Trace) mg/dL Urine Glucose (UA) Normal (Normal) mg/dL - Impressions ITS Impressions Chest X-Ray 12/24/18 08:10 IMPRESSION: 1. No acute cardiopulmonary disease. D/ / 12/24/2018 08:30:46 Bull Braun MD / bcarter Interpreting Provider: Bull Braun MD Head CT 12/24/18 08:10 IMPRESSION: No acute intracranial abnormality. Sequela of chronic small vessel ischemic change. D/ / 12/24/2018 09:30:12 Deandre Mccurdy MD / tkyer Interpreting Provider: Deandre Mccurdy MD - Assessment and Plan (1) Altered mental status Current Visit: Yes Status: Acute Assessment and plan: Place the pt into tele for observation his AMS is multifactorial due to acute toxic encephalopathy with UTI and underlying dementia to continue symptomatic and supportive care fall precautions started him on Haldol PRN Qualifiers: Altered mental status type: unspecified Qualified Code(s): R41.82 - Altered mental status, unspecified (2) UTI (urinary tract infection) Current Visit: Yes Status: Acute Assessment and plan: Reviewed UA - noticed yeast and possible bacteria too will f/u on urine cx started him on Diflucan and Rocephin IV hydration Qualifiers: Urinary tract infection type: acute cystitis Hematuria presence: without hematuria Qualified Code(s): N30.00 - Acute cystitis without hematuria (3) COPD (chronic obstructive pulmonary disease) Current Visit: No Status: Chronic Assessment and plan: not in exacerbation resumed home INH Qualifiers: COPD type: unspecified COPD Qualified Code(s): J44.9 - Chronic obstructive pulmonary disease, unspecified (4) DVT prophylaxis Current Visit: No Status: Acute Assessment and plan: on home Eliquis (5) Systolic CHF Current Visit: No Status: Chronic Assessment and plan: Not in exacerbation Held Lasix due to dehydration gentle hydration only Qualifiers: Qualified Code(s): I50.22 - Chronic systolic (congestive) heart failure (6) CAD (coronary artery disease) Current Visit: No Status: Chronic Assessment and plan: resumed all home meds Qualifiers: Coronary Disease-Associated Artery/Lesion type: [place] artery [place] vs. transplanted heart: [place] heart Associated angina: without angina Qualified Code(s): I25.10 - Atherosclerotic heart disease of [place] coronary artery without angina pectoris - Time Spent With Patient Total time spent is greater than 50% in coordination of care (as documented) at patient's floor/unit and/or counseling patient:
[2018-12-24] MEDS: cefTRIAXone 1,000 MG in Water for inj. (sterile) 20 ML 10 ML IVP SCH (16:19)
[2018-12-24] MEDS: Fluconazole 200 MG/100 ML 100 MG/50 ML BAG IVPB SCH (17:45)
[2018-12-24] MEDS: Nicotine 14 MG PATCH.TD24 TD SCH (21:29)
[2018-12-24] MEDS: Mirtazapine 15 MG TABLET PO SCH (21:29)
[2018-12-24] MEDS: Apixaban 5 MG TABLET PO SCH (21:29)
[2018-12-25] MEDS: Ipratropium/Albuterol Neb 3 ML IH SCH ×7 (00:07→23:08)
[2018-12-25 07:26] LABS: Basophils % 0.1 %; Hematocrit 35.1 % (37.5-50.1); Hemoglobin 11.5 g/dL (12.9-16.9); Immature Granulocytes % 0.3 % (0-4); Lymphocytes # 1.5 K/mcL (0.6-4.6); Lymphocytes % 19.1 %; Mean Corpuscular HGB Conc 32.8 g/dL (31.6-35.5); Mean Corpuscular Hemoglobin 29.6 pg (28.0-33.3); Mean Corpuscular Volume 90.5 fL (83.0-100.0); Monocytes # 0.6 K/mcL (0.0-1.3); Neutrophils # 5.7 K/mcL (1.6-8.9); Platelet Count 131 K/mcL (140-400); Red Blood Count 3.88 M/mcL (4.19-5.50); Red Cell Distribution Width 13.6 % (11.5-14.5); Segmented Neutrophils % 72.5 %
[2018-12-25 07:52] LABS: Alanine Aminotransferase 6 Units/L (7-52); Albumin/Globulin Ratio 1.7 (1.1-2.2); Alkaline Phosphatase 70 Units/L (34-104); Aspartate Amino Transferase 14 Units/L (13-39); BUN/Creatinine Ratio 20 (6-26); Bilirubin,Total 0.7 mg/dL (0.3-1.0); Blood Urea Nitrogen 17 mg/dL (8-23); Calcium 9.1 mg/dL (8.6-10.3); Carbon Dioxide 24 mEq/L (23-29); Chloride 109 mEq/L (98-107); Globulin 2.3 g/dL (2.4-3.5); Glucose 135 mg/dL (70-105); Magnesium 2.3 mg/dL (1.6-2.6); Osmolality,Calculated 300 (280-300); Potassium 3.5 mEq/L (3.5-5.1); Sodium 143 mEq/L (136-145); Total Protein 6.3 g/dL (6.4-8.9); eGFR For Non-African Americans > 60 (> 60)
--- NOTE | 2018-12-25 08:05 | Electrocardiograph Report ---
[facility] [employer] Test Date: 2018-12-24 Pat Name: Lio Chu Department: EXAM2 Room: 3A11 Gender: M Brand Lead: : 1935 Requested By: Davon Reis Order Number: [id number] Reading MD: Portillo Mckinney Measurements Intervals [place] Rate: 74 P: 79 WV: 162 QRS: 79 QRSD: 112 T: 264 QT: 407 QTc: 452 Interpretive Statements Sinus rhythm Probable anteroseptal infarct, recent Electronically Signed On 12-25-2018 8:03:50 EDT by Portillo Mckinney
[2018-12-25] MEDS: Finasteride 5 MG TABLET PO SCH (09:43)
[2018-12-25] MEDS: Apixaban 5 MG TABLET PO SCH ×2 (09:43→20:01)
[2018-12-25] MEDS: Aspirin Enteric Coated 81 MG Tablet PO SCH (09:43)
[2018-12-25] MEDS: cefTRIAXone 1,000 MG in Water for inj. (sterile) 20 ML 10 ML IVP SCH (09:44)
[2018-12-25] MEDS: Nicotine 14 MG PATCH.TD24 TD SCH (09:44)
[2018-12-25] MEDS: Fluconazole 200 MG/100 ML 100 MG/50 ML BAG IVPB SCH (10:50)
--- NOTE | 2018-12-25 13:27 | Internal Med Progress Note ---
Hospitalist Progress Note - Encounter Date of Encounter: 12/25/18 Time of Encounter: 12:00 - Subjective Interval History: Mr. Chu is a 83 year old male with a history of CAD with bypass, AICD, COPD and dementia was brought into ER by family for evaluation of altered mental status. He happened to have UTI. He was admitted in the hospital and started him on empirical antibiotic IV Rocephin and IV hydration. Pt is more alert, awake and O x 4. Denied any CP / SOB. Denied any Abd pain. Tolerating oral intake well. - Exam Vitals: Temp Pulse Resp BP Pulse Ox 97.7 F 76 17 112/45 94 12/25/18 10:44 12/25/18 10:44 12/25/18 11:18 12/25/18 10:44 12/25/18 11:18 Exam: Gen: Alert, awake, Oriented to time,place and person Chest: Diminished breath sounds B/L, No wheezing, No crackles, No rales Heart: S1S2+ RRR No murmurs Abd: Soft, NT, BS +, No organomegaly Ext: No edema, pulses are palpable, No calf tenderness Neuro : Benign findings Skin: No rash. - Assessment and Plan (1) Altered mental status Current Visit: Yes Status: Acute Assessment and Plan: his AMS is multifactorial due to acute toxic encephalopathy with UTI and underlying dementia to Improving continue symptomatic and supportive care fall precautions Cont Haldol PRN (2) UTI (urinary tract infection) Current Visit: Yes Status: Acute Assessment and Plan: Reviewed UA - noticed yeast and possible bacteria too Waiting for urine cx Cont Diflucan and Rocephin (3) COPD (chronic obstructive pulmonary disease) Current Visit: No Status: Chronic Assessment and Plan: not in exacerbation resumed home INH (4) DVT prophylaxis Current Visit: No Status: Acute Assessment and Plan: on home Eliquis (5) Systolic CHF Current Visit: No Status: Chronic Assessment and Plan: Not in exacerbation Held Lasix due to dehydration resumed all home meds (6) CAD (coronary artery disease) Current Visit: No Status: Chronic Assessment and Plan: resumed all home meds - Time Spent with Patient Total time spent is greater than 50% in coordination of care (as documented) at patient's floor/unit and/or counseling patient: Internal Medicine: Result - Labs CBC & Chem 7: 12/25/18 06:20 12/25/18 06:20 Labs: Short CBC 12/25/18 Range/Units 06:20 WBC 7.9 (4.3-11.1) K/mcL Hgb 11.5 L (12.9-16.9) g/dL Hct 35.1 L (37.5-50.1) % Plt Count 131 L (140-400) K/mcL Neutrophils # 5.7 (1.6-8.9) K/mcL BMP 12/25/18 06:20 Sodium 143 D Potassium 3.5 Chloride 109 H Carbon Dioxide 24 BUN 17 Creatinine 0.85 Glucose 135 H Calcium 9.1 Liver Function 12/25/18 Range/Units 06:20 Total Bilirubin 0.7 (0.3-1.0) mg/dL AST 14 (13-39) Units/L ALT 6 L (7-52) Units/L Alkaline Phosphatase 70 (34-104) Units/L Albumin 4.0 (3.5-5.7) g/dL - ABG Interpretation ABG results: PT/INR, D-dimer PT 13.0 Seconds (9.4-12.1) H 12/24/18 08:28 - Impressions Impressions Head CT 12/24/18 08:10 IMPRESSION: No acute intracranial abnormality. Sequela of chronic small vessel ischemic change. D/ / 12/24/2018 09:30:12 Deandre Mccurdy MD / tkyer Interpreting Provider: Deandre Mccurdy MD Consult Discharge Plan - Plan Referrals: Glenda Benjamin DO [Primary Care Provider] - (1) Altered mental status Qualifiers: Altered mental status type: unspecified Qualified Code(s): R41.82 - Altered mental status, unspecified (2) UTI (urinary tract infection) Qualifiers: Urinary tract infection type: acute cystitis Hematuria presence: without hematuria Qualified Code(s): N30.00 - Acute cystitis without hematuria (3) COPD (chronic obstructive pulmonary disease) Qualifiers: COPD type: unspecified COPD Qualified Code(s): J44.9 - Chronic obstructive pulmonary disease, unspecified (5) Systolic CHF Qualifiers: Qualified Code(s): I50.22 - Chronic systolic (congestive) heart failure (6) CAD (coronary artery disease) Qualifiers: Coronary Disease-Associated Artery/Lesion type: [place] artery [place] vs. transplanted heart: [place] heart Associated angina: without angina Qualified Code(s): I25.10 - Atherosclerotic heart disease of [place] coronary artery wit hout angina pectoris
[2018-12-25] MEDS: Mirtazapine 15 MG TABLET PO SCH (20:01)
[2018-12-26] MEDS: Ipratropium/Albuterol Neb 3 ML IH SCH ×3 (03:29→11:46)
[2018-12-26 07:18] VITALS: BP 150/73
--- NOTE | 2018-12-26 09:50 | Discharge Summary ---
- NOTES TO OUTPATIENT PROVIDER Notes to Outpatient Provider: Follow with PCP in one week. Date of Encounter: 12/26/18 Time of Encounter: 09:46 - Discharge Diagnosis (1) Altered mental status Priority: Primary Status: Acute Qualifiers: Altered mental status type: unspecified Qualified Code(s): R41.82 - Altered mental status, unspecified (2) UTI (urinary tract infection) Priority: Primary Status: Acute Qualifiers: Urinary tract infection type: acute cystitis Hematuria presence: without hematuria Qualified Code(s): N30.00 - Acute cystitis without hematuria (3) COPD (chronic obstructive pulmonary disease) Priority: Secondary Status: Chronic Qualifiers: COPD type: unspecified COPD Qualified Code(s): J44.9 - Chronic obstructive pulmonary disease, unspecified (4) DVT prophylaxis Priority: Secondary Status: Acute (5) Systolic CHF Priority: Secondary Status: Chronic Qualifiers: Qualified Code(s): I50.22 - Chronic systolic (congestive) heart failure (6) CAD (coronary artery disease) Priority: Secondary Status: Chronic Qualifiers: Coronary Disease-Associated Artery/Lesion type: [place] artery [place] vs. transplanted heart: [place] heart Associated angina: without angina Qualified Code(s): I25.10 - Atherosclerotic heart disease of [place] coronary artery without angina pectoris Hospital course: Mr. Chu is a 83 year old male with a history of CAD with bypass, AICD, COPD and dementia was brought into ER by family for evaluation of altered mental status. He happened to have UTI. He was admitted in the hospital and started him on empirical antibiotic IV Rocephin and Diflucan since he happened to have yeast in his urine. He was also started on gentle IV hydration. His symptoms improved now . Tolerating oral intake well . Pt is more alert, awake and O x 4. His urine cx grew yeast only, so switched him to PO Diflucan. He was evaluated by PT / OT who recommend home health services. So will d/c him with home health services today. - Time Spent with Patient Total time spent providing and/or coordinating discharge services: - Discharge Medications Prescriptions: New Fluconazole [Diflucan] 100 mg PO DAILY #5 tablet Continued Aspirin Enteric Coated [Aspirin EC] 81 mg PO DAILY Finasteride [Proscar] 5 mg PO DAILY Citalopram Hydrobromide [Citalopram HBr] 20 mg PO DAILY Carvedilol [Coreg] 6.25 mg PO DAILY Albuterol Sulfate [Ventolin Hfa] 2 puff IH Q4H PRN PRN Reason: Shortness Of Breath Tiotropium [Spiriva] 18 mcg IH DAILY Losartan [Cozaar] 25 mg PO DAILY Clopidogrel [Plavix] 75 mg PO DAILY Pravastatin Sodium [Pravachol] 40 mg PO HS Mirtazapine [Remeron] 30 mg PO HS Furosemide [Lasix] 20 mg PO DAILY #30 tablet Potassium Chloride 8 meq PO DAILY #30 tablet.er Ipratropium/Albuterol Neb [Duoneb] 3 ml IH Q4HR Nicotine Patch [Nicoderm] 14 mg TD DAILY Apixaban [Eliquis] 5 mg PO BID #60 tablet Tamsulosin [Flomax] 0.4 mg PO DAILY #14 capsule Discontinued Cefdinir [Omnicef] 300 mg PO BID #4 capsule predniSONE [PredniSONE] 10 mg PO DAILY #27 tablet Home Medications: Albuterol Sulfate [Ventolin Hfa] 2 puff IH Q4H PRN 04/27/17 [History] Aspirin Enteric Coated [Aspirin EC] 81 mg PO DAILY 04/27/17 [History] Carvedilol [Coreg] 6.25 mg PO DAILY 04/27/17 [History] Citalopram Hydrobromide [Citalopram HBr] 20 mg PO DAILY 04/27/17 [History] Clopidogrel [Plavix] 75 mg PO DAILY 04/27/17 [History] Finasteride [Proscar] 5 mg PO DAILY 04/27/17 [History] Losartan [Cozaar] 25 mg PO DAILY 04/27/17 [History] Mirtazapine [Remeron] 30 mg PO HS 04/27/17 [History] Pravastatin Sodium [Pravachol] 40 mg PO HS 04/27/17 [History] Tiotropium [Spiriva] 18 mcg IH DAILY 04/27/17 [History] Furosemide [Lasix] 20 mg PO DAILY #30 tablet 05/01/17 [Rx] Potassium Chloride 8 meq PO DAILY #30 tablet.er 05/01/17 [Rx] Ipratropium/Albuterol Neb [Duoneb] 3 ml IH Q4HR 11/16/17 [History] Nicotine Patch [Nicoderm] 14 mg TD DAILY 11/16/17 [History] Apixaban [Eliquis] 5 mg PO BID #60 tablet 11/22/17 [Rx] Tamsulosin [Flomax] 0.4 mg PO DAILY #14 capsule 11/22/17 [Rx] Fluconazole [Diflucan] 100 mg PO DAILY #5 tablet 12/26/18 [Rx] Allergies/Adverse Reactions: Allergy/AdvReac Type Severity Reaction Status Date / Time No Known Allergies Allergy Verified 11/08/17 18:00 Date of admission: 12/24/18 11:20 Primary care physician: Selam Almendarez Consults: 12/24/18 12:44 Consult to Physical Therapy [CONS] Routine Comment: Evaluate, develop and implement POC Reason for Consult: Physical deconditioning Does patient have active BEDREST order?: No Is patient medically & hemodynamically stable?: Yes Patient assessed for mobility or mobilized this visit?: Yes - Constitutional Vitals: Temp Pulse Resp BP Pulse Ox 97.8 F 63 16 150/73 97 12/26/18 07:15 12/26/18 07:15 12/26/18 07:47 12/26/18 07:15 12/26/18 07:47 General appearance: Present: A&O X 3, no acute distress Exam: Gen: Alert, awake, Oriented to time,place and person Chest: Diminished breath sounds B/L, No wheezing, No crackles, No rales Heart: S1S2+ RRR No murmurs Abd: Soft, NT, BS +, No organomegaly Ext: No edema, pulses are palpable, No calf tenderness Neuro : Benign findings Skin: No rash. - Patient Status Disposition: Home Health Service Condition: Good Overall status at discharge: patient is back to baseline - Discharge Instructions Follow Up With: Glenda Benjamin DO [Primary Care Provider] - - Diet and Activity Activity: increase activity as tolerated Diet: low salt diet
--- NOTE | 2018-12-26 09:53 | Physician Discharge Referral ---
Home Health/Hosp Referral Info Transfer to: Home Health Provider in Charge Post Discharge: PCP - Diagnosis (1) Altered mental status Status: Acute (2) UTI (urinary tract infection) Status: Acute (3) COPD (chronic obstructive pulmonary disease) Status: Chronic (4) DVT prophylaxis Status: Acute (5) Systolic CHF Status: Chronic (6) CAD (coronary artery disease) Status: Chronic - Respiratory Orders Smoking Cessation: Smoking cessation has been advised. For more information, call the [place] Tobacco Quit Line at 6-475-UYVJ-NOW. - Services Needed Following services are medically necessary services: Nursing, Physical Therapy, Occupational Therapy - Transfer Medications Prescriptions: Fluconazole [Diflucan] 100 mg PO DAILY #5 tablet Home Medications: Albuterol Sulfate [Ventolin Hfa] 2 puff IH Q4H PRN 04/27/17 [History] Aspirin Enteric Coated [Aspirin EC] 81 mg PO DAILY 04/27/17 [History] Carvedilol [Coreg] 6.25 mg PO DAILY 04/27/17 [History] Citalopram Hydrobromide [Citalopram HBr] 20 mg PO DAILY 04/27/17 [History] Clopidogrel [Plavix] 75 mg PO DAILY 04/27/17 [History] Finasteride [Proscar] 5 mg PO DAILY 04/27/17 [History] Losartan [Cozaar] 25 mg PO DAILY 04/27/17 [History] Mirtazapine [Remeron] 30 mg PO HS 04/27/17 [History] Pravastatin Sodium [Pravachol] 40 mg PO HS 04/27/17 [History] Tiotropium [Spiriva] 18 mcg IH DAILY 04/27/17 [History] Furosemide [Lasix] 20 mg PO DAILY #30 tablet 05/01/17 [Rx] Potassium Chloride 8 meq PO DAILY #30 tablet.er 05/01/17 [Rx] Ipratropium/Albuterol Neb [Duoneb] 3 ml IH Q4HR 11/16/17 [History] Nicotine Patch [Nicoderm] 14 mg TD DAILY 11/16/17 [History] Apixaban [Eliquis] 5 mg PO BID #60 tablet 11/22/17 [Rx] Tamsulosin [Flomax] 0.4 mg PO DAILY #14 capsule 11/22/17 [Rx] Fluconazole [Diflucan] 100 mg PO DAILY #5 tablet 12/26/18 [Rx] Allergies/Adverse Reactions: Allergy/AdvReac Type Severity Reaction Status Date / Time No Known Allergies Allergy Verified 11/08/17 18:00 Certification: Further, I certify that my clinical findings support that this patient is homebound (i.e. absences from home require considerable and taxing effort and are for medical reasons or congregation services or infrequently or short duration when for other reasons) because: Homebound Reason: Patient requires assistance of a person or device to safely leave home Attestation: My signature below is to certify that this patient is under my care and that I, or nurse practitioner, or a physician's assistant strength coach working with me, has a [id number] encounter with this patient.
[2018-12-26] MEDS: Finasteride 5 MG TABLET PO SCH (10:35)
[2018-12-26] MEDS: Aspirin Enteric Coated 81 MG Tablet PO SCH (10:35)
[2018-12-26] MEDS: Nicotine 14 MG PATCH.TD24 TD SCH (10:36)
[2018-12-26] MEDS: Apixaban 5 MG TABLET PO SCH (10:36)
[2018-12-26] MEDS: Fluconazole 200 MG/100 ML 100 MG/50 ML BAG IVPB SCH (10:38)
[2018-12-26] MEDS: cefTRIAXone 1,000 MG in Water for inj. (sterile) 20 ML 10 ML IVP SCH (10:47)
== END 2018-12-26 12:57 | disposition home health service (06) ==
LOC: EMEROOARM 07:54 → 3ANU 07:54 → SUATTDRO 11:20 → 3ANU 11:52
PROVIDERS: ADMIT Internal Medicine Nephrology; ATTEND Family Medicine

== ENCOUNTER 2019-06-03 20:33 | Inpatient (IN) ==
[2019-06-03] MEDS ORDERED: 0.9 % Sodium Chloride 1,000 ML IVC ONE (20:41)
[2019-06-03] MEDS ORDERED: Ipratropium/Albuterol Neb 3 ML IH ONE (20:49)
[2019-06-03] MEDS ORDERED: cefTRIAXone 2,000 MG in 0.9 % Sodium Chloride Mini Bag 100 ML IVPB ONE ×2 (20:50→22:00)
[2019-06-03] MEDS ORDERED: methylPREDNISolone 125 MG/2 ML VIAL IVP ONE (20:50)
[2019-06-03 21:09] LABS: VBG HCO3 27 mEq/L (21-27); VBG PCO2 42 mmHg (41-51); VBG PH 7.41 pH Units (7.32-7.42); VBG PO2 52 mmHg (25-50)
[2019-06-03 21:09] LABS: Basophils % 0.2 %; Eosinophils % 0.3 %; Hemoglobin 13.9 g/dL (12.9-16.9); Immature Granulocytes % 0.3 % (0-4); Lymphocytes # 1.2 K/mcL (0.6-4.6); Lymphocytes % 9.3 %; Mean Corpuscular HGB Conc 35.6 g/dL (31.6-35.5); Mean Corpuscular Hemoglobin 31.5 pg (28.0-33.3); Mean Corpuscular Volume 88.4 fL (83.0-100.0); Mean Platelet Volume 9.6 fL (9.4-12.4); Monocytes # 0.6 K/mcL (0.0-1.3); Neutrophils # 10.6 K/mcL (1.6-8.9); Platelet Count 183 K/mcL (140-400); Red Blood Count 4.41 M/mcL (4.19-5.50); Red Cell Distribution Width 12.8 % (11.5-14.5); Segmented Neutrophils % 84.9 %; White Blood Count 12.5 K/mcL (4.3-11.1)
[2019-06-03 21:14] LABS: INR 1.4
[2019-06-03 21:17] LABS: Activated Partial Thrombo Time 31.4 Seconds (26.0-36.0)
[2019-06-03 21:25] LABS: Alanine Aminotransferase 8 Units/L (7-52); Albumin 4.3 g/dL (3.5-5.7); Albumin/Globulin Ratio 1.4 (1.1-2.2); Alkaline Phosphatase 92 Units/L (34-104); Aspartate Amino Transferase 14 Units/L (13-39); BUN/Creatinine Ratio 28 (6-26); Bilirubin,Direct 0.1 mg/dL (0.0-0.2); Bilirubin,Indirect 1.1 mg/dL (0.0-1.0); Bilirubin,Total 1.2 mg/dL (0.3-1.0); Blood Urea Nitrogen 29 mg/dL (8-23); Calcium 9.3 mg/dL (8.6-10.3); Carbon Dioxide 26 mEq/L (23-29); Chloride 102 mEq/L (98-107); Ethanol < 10 mg/dL (Less than 10); Glucose 148 mg/dL (70-105); Osmolality,Calculated 295 (280-300); Potassium 4.4 mEq/L (3.5-5.1); Sodium 138 mEq/L (136-145); Total Protein 7.3 g/dL (6.4-8.9); Troponin I < 0.03 ng/mL (< 0.04); eGFR For African Americans > 60 (> 60); eGFR For Non-African Americans > 60 (> 60)
[2019-06-03 21:39] LABS: Thyroid Stimulating Hormone 1.509 mcIU/mL (0.340-5.600)
[2019-06-04 00:22] LABS: Amphetamine Screen,Urine Negative ng/mL (Cutoff=1000); Barbiturate Screen,Urine Negative ng/mL (Cutoff=200); Benzodiazepines Screen,Urine Negative ng/mL (Cutoff=200); Cannabinoid Screen,Urine Negative ng/mL (Cutoff = 50); Cocaine Screen,Urine Negative ng/mL (Cutoff= 300); Opiate Screen,Urine Negative ng/mL (Cutoff=300); Phencyclidine Screen,Urine Negative ng/mL (Cutoff=25)
[2019-06-04 00:35] LABS: Bilirubin,Urine Negative (Negative); Blood,Urine Moderate (Negative); Clarity,Urine Cloudy (Clear); Color,Urine Yellow (Yellow); Glucose,Urine (UA) Normal (Normal); Ketones,Urine Negative (Negative); Leukocyte Esterase,Urine Moderate (Negative); Nitrite,Urine Negative (Negative); Protein,Urine 30 mg/dL (Neg-Trace); Specific Gravity,Urine 1.024 (1.010-1.025); Urobilinogen,Urine Normal (Normal)
[2019-06-04 00:37] LABS: Bacteria,Urine None Seen per hpf (None-Few); Hyaline Casts,Urine None Seen per lpf (None-Few); Squamous Epithelial Cell,Urine Many per lpf (None-Few); WBC,Urine 50-100 per hpf (0-3)
[2019-06-04 00:50] LABS: Granular Casts,Urine Few per lpf (None Seen)
[2019-06-04] MEDS ORDERED: Naloxone 0.4 MG/ML INJ IVP PRN (01:57)
[2019-06-04 02:23] LABS: Basophils % 0.1 %; Hemoglobin 13.3 g/dL (12.9-16.9); Immature Granulocytes % 0.3 % (0-4); Lymphocytes # 0.8 K/mcL (0.6-4.6); Lymphocytes % 6.8 %; Mean Corpuscular Hemoglobin 30.9 pg (28.0-33.3); Mean Corpuscular Volume 88.4 fL (83.0-100.0); Mean Platelet Volume 9.4 fL (9.4-12.4); Monocytes # 0.1 K/mcL (0.0-1.3); Monocytes % 0.7 %; Neutrophils # 11.1 K/mcL (1.6-8.9); Platelet Count 165 K/mcL (140-400); Red Cell Distribution Width 12.9 % (11.5-14.5); Segmented Neutrophils % 92.1 %; White Blood Count 12.1 K/mcL (4.3-11.1)
[2019-06-04] MEDS: Ringers Solution, Lactated 1,000 ML IVC SCH ×3 (02:30→18:25)
[2019-06-04 02:41] LABS: BUN/Creatinine Ratio 27 (6-26); Blood Urea Nitrogen 26 mg/dL (8-23); Calcium 8.9 mg/dL (8.6-10.3); Carbon Dioxide 24 mEq/L (23-29); Chloride 105 mEq/L (98-107); Glucose 163 mg/dL (70-105); Osmolality,Calculated 294 (280-300); Potassium 3.9 mEq/L (3.5-5.1); Sodium 138 mEq/L (136-145); eGFR For African Americans > 60 (> 60); eGFR For Non-African Americans > 60 (> 60)
[2019-06-04] MEDS: cefTRIAXone 1,000 MG in Water for inj. (sterile) 10 ML IVP SCH (08:28)
[2019-06-04] MEDS: Aspirin 81 MG TAB.CHEW PO SCH (15:07)
[2019-06-04] MEDS: Tiotropium 18 MCG inhalation IH SCH (15:45)
[2019-06-04] MEDS ORDERED: Apixaban 5 MG TABLET PO SCH (21:00)
[2019-06-05] MEDS: Ringers Solution, Lactated 1,000 ML IVC SCH ×2 (02:42→09:16)
[2019-06-05] MEDS: Tiotropium 18 MCG inhalation IH SCH (07:37)
[2019-06-05] MEDS: Aspirin 81 MG TAB.CHEW PO SCH (09:15)
[2019-06-05] MEDS: cefTRIAXone 1,000 MG in Water for inj. (sterile) 10 ML IVP SCH (09:16)
[2019-06-05 11:33] VITALS: BP 195/61
== END 2019-06-05 16:28 | disposition home health service (06) | DRG 689 ==
LOC: 3BNU 20:33 → EMEROOARM 20:33 → 3BNU 06-04 01:44 → SUATTDRO 06-04 12:50
PROVIDERS: ADMIT Internal Medicine; ATTEND Internal Medicine

== ENCOUNTER 2019-09-27 10:08 | Observation (INO) ==
[2019-09-27] MEDS ORDERED: Ipratropium/Albuterol Neb 3 ML IH ONE (10:35)
[2019-09-27] MEDS ORDERED: Isovue-370 500 ML BOTTLE IVP ONE (10:40)
[2019-09-27 11:11] LABS: INR 1.4; Prothrombin Time 15.7 Seconds (9.4-12.1)
[2019-09-27 11:13] LABS: Basophils % 0.3 %; Eosinophils # 0.1 K/mcL (0.0-0.6); Eosinophils % 0.9 %; Hematocrit 37.7 % (37.5-50.1); Hemoglobin 12.5 g/dL (12.9-16.9); Immature Granulocytes % 0.2 % (0-4); Lymphocytes # 1.7 K/mcL (0.6-4.6); Lymphocytes % 25.7 %; Mean Corpuscular HGB Conc 33.2 g/dL (31.6-35.5); Mean Corpuscular Hemoglobin 31.3 pg (28.0-33.3); Mean Corpuscular Volume 94.5 fL (83.0-100.0); Mean Platelet Volume 9.5 fL (9.4-12.4); Monocytes # 0.6 K/mcL (0.0-1.3); Monocytes % 9.5 %; Neutrophils # 4.2 K/mcL (1.6-8.9); Platelet Count 117 K/mcL (140-400); Red Blood Count 3.99 M/mcL (4.19-5.50); Red Cell Distribution Width 13.3 % (11.5-14.5); Segmented Neutrophils % 63.4 %; White Blood Count 6.7 K/mcL (4.3-11.1)
[2019-09-27 11:27] LABS: BUN/Creatinine Ratio 24 (6-26); Blood Urea Nitrogen 25 mg/dL (8-23); Carbon Dioxide 28 mEq/L (23-29); Chloride 106 mEq/L (98-107); Glucose 99 mg/dL (70-105); Osmolality,Calculated 290 (280-300); Potassium 4.1 mEq/L (3.5-5.1); Sodium 138 mEq/L (136-145); eGFR For African Americans > 60 (> 60); eGFR For Non-African Americans > 60 (> 60)
[2019-09-27] MEDS ORDERED: Naloxone 0.4 MG/ML INJ IVP PRN (13:34)
[2019-09-27] MEDS ORDERED: Ondansetron 4 MG/2 ML VIAL IVP PRN (13:34)
[2019-09-27] MEDS ORDERED: Ipratropium/Albuterol Neb 3 ML IH PRN (13:36)
[2019-09-27 14:03] LABS: Bilirubin,Urine Moderate (Negative); Blood,Urine Large (Negative); Clarity,Urine Cloudy (Clear); Glucose,Urine (UA) Normal (Normal); Ketones,Urine Trace mg/dL (Negative); Leukocyte Esterase,Urine Moderate (Negative); Nitrite,Urine Positive (Negative); Protein,Urine >=300 mg/dL (Neg-Trace); Specific Gravity,Urine > 1.030 (1.010-1.025); Urobilinogen,Urine Normal (Normal)
[2019-09-27 14:08] LABS: Color,Urine Red (Yellow)
[2019-09-27] MEDS: cefTRIAXone 1,000 MG in Water for inj. (sterile) 10 ML IVP SCH (16:24)
[2019-09-27 20:34] LABS: Adenovirus Not Detected (Not Detect); Coronavirus 229E Not Detected (Not Detect); Coronavirus HKU1 DETECTED (Not Detect); Coronavirus NL63 Not Detected (Not Detect); Coronavirus OC43 Not Detected (Not Detect); Human Metapneumovirus Not Detected (Not Detect)
[2019-09-27 20:35] LABS: Bordetella Pertussis Not Detected (Not Detect); Chlamydophila pneumoniae Not Detected (Not Detect); Human Rhinovirus/Enterovirus DETECTED (Not Detect); Influenza A Subtype 2009 H1 Not Detected (Not Detect); Influenza B Not Detected (Not Detect); Mycoplasma pneumoniae Not Detected (Not Detect); Parainfluenza Virus 1 Not Detected (Not Detect); Parainfluenza Virus 2 Not Detected (Not Detect); Parainfluenza Virus 3 Not Detected (Not Detect); Parainfluenza Virus 4 Not Detected (Not Detect); Respiratory Syncytial Virus Not Detected (Not Detect)
[2019-09-27] MEDS ORDERED: traZODone 50 MG TABLET PO SCH (21:00)
[2019-09-27] MEDS ORDERED: Gabapentin 100 MG CAPSULE PO SCH (21:00)
[2019-09-27 21:09] LABS: Hematocrit 36.8 % (37.5-50.1); Hemoglobin 12.5 g/dL (12.9-16.9)
[2019-09-27] MEDS: carvediloL 6.25 MG TABLET PO SCH (21:18)
[2019-09-28 06:53] VITALS: BP 117/69
[2019-09-28] MEDS: cefTRIAXone 1,000 MG in Water for inj. (sterile) 10 ML IVP SCH (08:52)
[2019-09-28] MEDS: carvediloL 6.25 MG TABLET PO SCH (08:52)
[2019-09-28] MEDS ORDERED: predniSONE 20 MG TABLET PO ONE (08:57)
[2019-09-28 09:07] LABS: Basophils % 0.1 %; Eosinophils # 0.1 K/mcL (0.0-0.6); Eosinophils % 1.2 %; Hemoglobin 13.1 g/dL (12.9-16.9); Immature Granulocytes % 0.3 % (0-4); Lymphocytes # 1.6 K/mcL (0.6-4.6); Lymphocytes % 23.5 %; Mean Corpuscular HGB Conc 33.6 g/dL (31.6-35.5); Mean Corpuscular Hemoglobin 31.3 pg (28.0-33.3); Mean Corpuscular Volume 93.3 fL (83.0-100.0); Monocytes # 0.5 K/mcL (0.0-1.3); Monocytes % 7.1 %; Neutrophils # 4.7 K/mcL (1.6-8.9); Platelet Count 125 K/mcL (140-400); Red Blood Count 4.18 M/mcL (4.19-5.50); Red Cell Distribution Width 13.1 % (11.5-14.5); Segmented Neutrophils % 67.8 %; White Blood Count 6.9 K/mcL (4.3-11.1)
[2019-09-28 09:08] LABS: INR 1.2; Prothrombin Time 13.6 Seconds (9.4-12.1)
[2019-09-28 09:25] LABS: BUN/Creatinine Ratio 22 (6-26); Blood Urea Nitrogen 20 mg/dL (8-23); Calcium 8.9 mg/dL (8.6-10.3); Carbon Dioxide 27 mEq/L (23-29); Chloride 105 mEq/L (98-107); Glucose 86 mg/dL (70-105); Magnesium 2.2 mg/dL (1.6-2.6); Osmolality,Calculated 288 (280-300); Potassium 4.1 mEq/L (3.5-5.1); Sodium 138 mEq/L (136-145); eGFR For African Americans > 60 (> 60); eGFR For Non-African Americans > 60 (> 60)
== END 2019-09-28 11:39 | disposition home or self-care (01) ==
LOC: 3BNU 10:08 → EMEROOARM 10:08 → SUATTDRO 14:08 → 3BNU 14:44
PROVIDERS: ADMIT Internal Medicine; ATTEND Student in an Organized Health Care Education/Training Program

== ENCOUNTER 2021-03-23 11:31 | Inpatient (IN) ==
[2021-03-23 12:49] LABS: Basophils % 0.2 %; Eosinophils # 0.1 K/mcL (0.0-0.6); Eosinophils % 0.5 %; Hematocrit 42.8 % (37.5-50.1); Hemoglobin 13.9 g/dL (12.9-16.9); Immature Granulocytes % 0.2 % (0-4); Lymphocytes # 1.6 K/mcL (0.6-4.6); Lymphocytes % 12.8 %; Mean Corpuscular HGB Conc 32.5 g/dL (31.6-35.5); Mean Corpuscular Hemoglobin 30.2 pg (28.0-33.3); Mean Platelet Volume 9.6 fL (9.4-12.4); Monocytes # 0.9 K/mcL (0.0-1.3); Monocytes % 7.3 %; Neutrophils # 9.8 K/mcL (1.6-8.9); Platelet Count 211 K/mcL (140-400); Red Cell Distribution Width 13.3 % (11.5-14.5); White Blood Count 12.4 K/mcL (4.3-11.1)
[2021-03-23 13:19] LABS: Alanine Aminotransferase 13 Units/L (7-52); Albumin 4.1 g/dL (3.5-5.7); Albumin/Globulin Ratio 1.2 (1.1-2.2); Alkaline Phosphatase 84 Units/L (34-104); Aspartate Amino Transferase 36 Units/L (13-39); BUN/Creatinine Ratio 28 (6-26); Bilirubin,Direct 0.3 mg/dL (0.0-0.2); Bilirubin,Indirect 1.3 mg/dL (0.0-1.0); Bilirubin,Total 1.6 mg/dL (0.3-1.0); Blood Urea Nitrogen 36 mg/dL (8-23); Calcium 9.9 mg/dL (8.6-10.3); Carbon Dioxide 32 mEq/L (23-29); Chloride 103 mEq/L (98-107); Globulin 3.5 g/dL (2.4-3.5); Glucose 128 mg/dL (70-105); Lipase 8 Units/L (11-82); Osmolality,Calculated 304 (280-300); Potassium 4.9 mEq/L (3.5-5.1); Sodium 142 mEq/L (136-145); Total Protein 7.6 g/dL (6.4-8.9); eGFR For African Americans > 60 (> 60); eGFR For Non-African Americans 54 (> 60)
[2021-03-23 14:01] LABS: Bilirubin,Urine Negative (Negative); Blood,Urine Moderate (Negative); Clarity,Urine Ex.Turbid (Clear); Color,Urine Yellow (Yellow); Glucose,Urine (UA) Normal (Normal); Ketones,Urine Negative (Negative); Leukocyte Esterase,Urine Large (Negative); Nitrite,Urine Negative (Negative); PH,Urine 7.5 pH Units (5.0-8.0); Protein,Urine 100 mg/dL (Neg-Trace); Specific Gravity,Urine 1.017 (1.010-1.025); Urobilinogen,Urine Normal (Normal)
[2021-03-23 14:09] LABS: WBC,Urine TNTC per hpf (0-3)
[2021-03-23 14:10] LABS: Bacteria,Urine Many per hpf (None-Few); RBC,Urine 30-50 per hpf (0-3)
[2021-03-23] MEDS ORDERED: cefTRIAXone 1,000 MG in 0.9 % Sodium Chloride Mini Bag 100 ML IVPB ONE (14:54)
[2021-03-23] MEDS ORDERED: Naloxone 0.4 MG/ML INJ IVP PRN (15:31)
[2021-03-23] MEDS ORDERED: Acetaminophen 325 MG TABLET PO PRN (15:41)
[2021-03-23] MEDS ORDERED: Ondansetron 4 MG/2 ML VIAL IVP PRN (15:41)
[2021-03-23] MEDS ORDERED: *HR* OxyCODONE Immed Rel 5 MG TABLET PO PRN (15:41)
[2021-03-23] MEDS ORDERED: *HR* HYDROcodone/Acet 5/325 mg TABLET PO PRN (15:41)
[2021-03-23] MEDS: 0.9 % Sodium Chloride 1,000 ML IVC SCH (17:58)
[2021-03-24] MEDS ORDERED: D5% in Lactated Ringers 1,000 ML IVC SCH (08:00)
[2021-03-24] MEDS ORDERED: cefTRIAXone 1,000 MG in Water for inj. (sterile) 10 ML IVP SCH (09:00)
[2021-03-24 11:15] LABS: Basophils % 0.2 %; Eosinophils # 0.1 K/mcL (0.0-0.6); Eosinophils % 1.1 %; Hematocrit 34.4 % (37.5-50.1); Immature Granulocytes % 0.3 % (0-4); Lymphocytes % 17.2 %; Mean Corpuscular HGB Conc 33.7 g/dL (31.6-35.5); Mean Corpuscular Hemoglobin 31.4 pg (28.0-33.3); Mean Corpuscular Volume 93.2 fL (83.0-100.0); Mean Platelet Volume 9.6 fL (9.4-12.4); Monocytes # 0.7 K/mcL (0.0-1.3); Monocytes % 5.9 %; Neutrophils # 8.7 K/mcL (1.6-8.9); Platelet Count 176 K/mcL (140-400); Red Blood Count 3.69 M/mcL (4.19-5.50); Red Cell Distribution Width 13.1 % (11.5-14.5); Segmented Neutrophils % 75.3 %; White Blood Count 11.6 K/mcL (4.3-11.1)
[2021-03-24 11:37] LABS: Alanine Aminotransferase 10 Units/L (7-52); Albumin 3.5 g/dL (3.5-5.7); Albumin/Globulin Ratio 1.4 (1.1-2.2); Alkaline Phosphatase 66 Units/L (34-104); Aspartate Amino Transferase 30 Units/L (13-39); BUN/Creatinine Ratio 36 (6-26); Blood Urea Nitrogen 29 mg/dL (8-23); Calcium 8.6 mg/dL (8.6-10.3); Carbon Dioxide 29 mEq/L (23-29); Chloride 106 mEq/L (98-107); Globulin 2.5 g/dL (2.4-3.5); Glucose 104 mg/dL (70-105); Hemoglobin 11.6 g/dL (12.9-16.9); Osmolality,Calculated 294 (280-300); Potassium 4.3 mEq/L (3.5-5.1); Sodium 139 mEq/L (136-145); eGFR For African Americans > 60 (> 60); eGFR For Non-African Americans > 60 (> 60)
[2021-03-24] MEDS ORDERED: Morphine Sulfate 2 MG/ML SYRINGE IVP PRN (15:28)
[2021-03-24] MEDS ORDERED: *HR* FentaNYL (PF) 100 MCG/2 ML VIAL ONE (15:52)
[2021-03-24] MEDS ORDERED: *HR* Propofol 200 MG/20 ML VIAL IVP ONE (15:52)
[2021-03-24] MEDS ORDERED: Lidocaine -MPF 2% 2 ML VIAL ONE (15:53)
[2021-03-24] MEDS ORDERED: Ondansetron 4 MG/2 ML VIAL ONE (15:53)
[2021-03-24] MEDS ORDERED: Acetaminophen 325 MG TABLET PO PRN (17:53)
[2021-03-24] MEDS ORDERED: Ondansetron 4 MG/2 ML VIAL IVP PRN (17:53)
[2021-03-24] MEDS ORDERED: Naloxone 0.4 MG/ML INJ IVP PRN (17:53)
[2021-03-24] MEDS ORDERED: carvediloL 6.25 MG TABLET PO SCH (21:00)
[2021-03-24] MEDS ORDERED: Gabapentin 300 MG CAPSULE PO SCH (21:00)
[2021-03-24] MEDS ORDERED: traZODone 50 MG TABLET PO SCH (21:00)
[2021-03-24] MEDS: *HR* OxyCODONE Immed Rel 5 MG TABLET PO PRN (21:48)
[2021-03-24] MEDS: Nicotine 14 MG PATCH.TD24 TD SCH (22:01)
[2021-03-25 03:16] LABS: Hematocrit 36.9 % (37.5-50.1); Hemoglobin 12.3 g/dL (12.9-16.9); Mean Corpuscular HGB Conc 33.3 g/dL (31.6-35.5); Mean Corpuscular Hemoglobin 30.9 pg (28.0-33.3); Mean Corpuscular Volume 92.7 fL (83.0-100.0); Mean Platelet Volume 9.4 fL (9.4-12.4); Platelet Count 184 K/mcL (140-400); Red Blood Count 3.98 M/mcL (4.19-5.50); Red Cell Distribution Width 12.8 % (11.5-14.5); White Blood Count 11.6 K/mcL (4.3-11.1)
[2021-03-25 03:41] LABS: BUN/Creatinine Ratio 32 (6-26); Blood Urea Nitrogen 24 mg/dL (8-23); Calcium 8.9 mg/dL (8.6-10.3); Carbon Dioxide 28 mEq/L (23-29); Chloride 104 mEq/L (98-107); Glucose 142 mg/dL (70-105); Osmolality,Calculated 294 (280-300); Potassium 4.8 mEq/L (3.5-5.1); Sodium 139 mEq/L (136-145); eGFR For African Americans > 60 (> 60); eGFR For Non-African Americans > 60 (> 60)
[2021-03-25] MEDS: D5% in Lactated Ringers 1,000 ML IVC SCH ×2 (07:31→08:11)
[2021-03-25] MEDS: 0.9 % Sodium Chloride 1,000 ML IVC SCH (07:52)
[2021-03-25] MEDS: Nicotine 14 MG PATCH.TD24 TD SCH (08:05)
[2021-03-25] MEDS: *HR* HYDROcodone/Acet 5/325 mg TABLET PO PRN ×2 (08:12→21:55)
[2021-03-25] MEDS ORDERED: cefTRIAXone 1,000 MG in Water for inj. (sterile) 10 ML IVP SCH (09:00)
[2021-03-25] MEDS ORDERED: Finasteride 5 MG TABLET PO SCH (09:00)
[2021-03-26] MEDS: *HR* OxyCODONE Immed Rel 5 MG TABLET PO PRN (07:43)
[2021-03-26] MEDS: Nicotine 14 MG PATCH.TD24 TD SCH (07:43)
[2021-03-26] MEDS: Gabapentin 100 MG CAPSULE PO SCH ×3 (11:27→20:03)
[2021-03-27 02:39] LABS: Hematocrit 35.3 % (37.5-50.1); Hemoglobin 12.1 g/dL (12.9-16.9); Mean Corpuscular HGB Conc 34.3 g/dL (31.6-35.5); Mean Corpuscular Hemoglobin 31.1 pg (28.0-33.3); Mean Corpuscular Volume 90.7 fL (83.0-100.0); Mean Platelet Volume 9.8 fL (9.4-12.4); Platelet Count 204 K/mcL (140-400); Red Blood Count 3.89 M/mcL (4.19-5.50); Red Cell Distribution Width 12.8 % (11.5-14.5)
[2021-03-27 02:59] LABS: BUN/Creatinine Ratio 26 (6-26); Blood Urea Nitrogen 23 mg/dL (8-23); Calcium 8.4 mg/dL (8.6-10.3); Carbon Dioxide 28 mEq/L (23-29); Chloride 103 mEq/L (98-107); Glucose 133 mg/dL (70-105); Osmolality,Calculated 290 (280-300); Potassium 3.7 mEq/L (3.5-5.1); Sodium 137 mEq/L (136-145); eGFR For African Americans > 60 (> 60); eGFR For Non-African Americans > 60 (> 60)
[2021-03-27] MEDS: Gabapentin 100 MG CAPSULE PO SCH (09:28)
[2021-03-27] MEDS: Nicotine 14 MG PATCH.TD24 TD SCH (09:29)
[2021-03-27] MEDS: Gabapentin 300 MG CAPSULE PO SCH ×2 (14:40→21:43)
[2021-03-27] MEDS: *HR* HYDROcodone/Acet 5/325 mg TABLET PO PRN (14:40)
[2021-03-28] MEDS: Gabapentin 300 MG CAPSULE PO SCH ×3 (08:46→20:09)
[2021-03-28] MEDS: Nicotine 14 MG PATCH.TD24 TD SCH (08:48)
[2021-03-29] MEDS: Gabapentin 300 MG CAPSULE PO SCH ×3 (10:02→21:11)
[2021-03-29] MEDS: Nicotine 14 MG PATCH.TD24 TD SCH (10:05)
[2021-03-30] MEDS: Nicotine 14 MG PATCH.TD24 TD SCH (10:17)
[2021-03-30] MEDS: Gabapentin 300 MG CAPSULE PO SCH ×2 (10:17→14:23)
[2021-03-30 11:32] VITALS: PULSE 75
[2021-03-30 12:09] LABS: Adenovirus Not Detected (Not Detect); Bordetella Pertussis Not Detected (Not Detect); Chlamydophila pneumoniae Not Detected (Not Detect); Coronavirus 229E Not Detected (Not Detect); Coronavirus HKU1 Not Detected (Not Detect); Coronavirus NL63 Not Detected (Not Detect); Coronavirus OC43 Not Detected (Not Detect); Human Metapneumovirus Not Detected (Not Detect); Human Rhinovirus/Enterovirus Not Detected (Not Detect); Influenza A Subtype 2009 H1 Not Detected (Not Detect); Influenza B Not Detected (Not Detect); Mycoplasma pneumoniae Not Detected (Not Detect); Parainfluenza Virus 1 Not Detected (Not Detect); Parainfluenza Virus 2 Not Detected (Not Detect); Parainfluenza Virus 3 Not Detected (Not Detect); Parainfluenza Virus 4 Not Detected (Not Detect); Respiratory Syncytial Virus Not Detected (Not Detect); SARS-CoV-2 Not Detected (Not Detect)
[2021-03-30 16:46] VITALS: BP 125/58; TEMP 97.8; O2SAT 94
== END 2021-03-30 18:58 | DRG 853 ==
LOC: EMEROOARM 11:31 → CDU 11:31 → SUATTDRO 16:21 → CDU 17:53 → SUATTDRO 03-24 13:42 → 3BNU 03-25 01:46
PROVIDERS: ADMIT Student in an Organized Health Care Education/Training Program; ATTEND Registered Nurse

== ENCOUNTER 2021-05-08 19:42 | Inpatient (IN) ==
[2021-05-08] MEDS ORDERED: Acetaminophen 650 MG RECTAL SUPP RC ONE (21:33)
[2021-05-08 23:26] LABS: Basophils % 0.1 %; Eosinophils % 0.2 %; Hematocrit 34.3 % (37.5-50.1); Hemoglobin 10.9 g/dL (12.9-16.9); Immature Granulocytes % 0.3 % (0-4); Lymphocytes # 0.3 K/mcL (0.6-4.6); Lymphocytes % 2.8 %; Mean Corpuscular HGB Conc 31.8 g/dL (31.6-35.5); Mean Corpuscular Hemoglobin 30.1 pg (28.0-33.3); Mean Corpuscular Volume 94.8 fL (83.0-100.0); Mean Platelet Volume 9.3 fL (9.4-12.4); Monocytes # 0.1 K/mcL (0.0-1.3); Monocytes % 0.6 %; Neutrophils # 9.8 K/mcL (1.6-8.9); Platelet Count 174 K/mcL (140-400); Red Blood Count 3.62 M/mcL (4.19-5.50); Red Cell Distribution Width 13.6 % (11.5-14.5); White Blood Count 10.2 K/mcL (4.3-11.1)
[2021-05-08] MEDS: *HR* LORazepam 2 MG/ML VIAL IVP ONE (23:32)
[2021-05-08 23:34] LABS: Bilirubin,Urine Moderate (Negative); Blood,Urine Large (Negative); Clarity,Urine Turbid (Clear); Color,Urine Red (Yellow); Glucose,Urine (UA) 500 mg/dL (Normal); Ketones,Urine Trace mg/dL (Negative); Leukocyte Esterase,Urine Negative (Negative); Nitrite,Urine Positive (Negative); PH,Urine 8.5 pH Units (5.0-8.0); Protein,Urine >=300 mg/dL (Neg-Trace); Specific Gravity,Urine 1.015 (1.010-1.025); Urobilinogen,Urine Normal (Normal)
[2021-05-08] MEDS ORDERED: cefTRIAXone 1,000 MG in 0.9 % Sodium Chloride Mini Bag 100 ML IVPB ONE (23:38)
[2021-05-08 23:44] LABS: Alanine Aminotransferase 11 Units/L (7-52); Albumin 3.5 g/dL (3.5-5.7); Albumin/Globulin Ratio 1.5 (1.1-2.2); Alkaline Phosphatase 79 Units/L (34-104); Aspartate Amino Transferase 16 Units/L (13-39); BUN/Creatinine Ratio 27 (6-26); Bilirubin,Total 1.1 mg/dL (0.3-1.0); Blood Urea Nitrogen 29 mg/dL (8-23); Calcium 8.7 mg/dL (8.6-10.3); Carbon Dioxide 27 mEq/L (23-29); Chloride 105 mEq/L (98-107); Globulin 2.3 g/dL (2.4-3.5); Glucose 236 mg/dL (70-105); Osmolality,Calculated 303 (280-300); Potassium 4.3 mEq/L (3.5-5.1); Sodium 140 mEq/L (136-145); Total Protein 5.8 g/dL (6.4-8.9); eGFR For African Americans > 60 (> 60); eGFR For Non-African Americans > 60 (> 60)
[2021-05-09] MEDS: 0.9 % Sodium Chloride 1,000 ML IVC SCH ×2 (00:30→14:36)
[2021-05-09] MEDS ORDERED: Ondansetron 4 MG/2 ML VIAL IVP PRN (01:08)
[2021-05-09] MEDS ORDERED: Acetaminophen 325 MG TABLET PO PRN (01:08)
[2021-05-09] MEDS ORDERED: Naloxone 0.4 MG/ML INJ IVP PRN (01:08)
[2021-05-09] MEDS ORDERED: 0.9 % Sodium Chloride 1,000 ML IVC SCH (01:15)
[2021-05-09 03:32] LABS: Hematocrit 28.6 % (37.5-50.1); Mean Corpuscular HGB Conc 31.5 g/dL (31.6-35.5); Mean Corpuscular Hemoglobin 30.3 pg (28.0-33.3); Mean Corpuscular Volume 96.3 fL (83.0-100.0); Mean Platelet Volume 9.5 fL (9.4-12.4); Platelet Count 156 K/mcL (140-400); Red Blood Count 2.97 M/mcL (4.19-5.50); Red Cell Distribution Width 13.5 % (11.5-14.5)
[2021-05-09] MEDS: Piperacillin/Tazobactam 3.375 GM in 0.9 % Sodium Chloride Mini Bag 100 ML IVPB SCH ×3 (03:47→20:31)
[2021-05-09 03:48] LABS: BUN/Creatinine Ratio 26 (6-26); Blood Urea Nitrogen 28 mg/dL (8-23); Calcium 7.5 mg/dL (8.6-10.3); Carbon Dioxide 23 mEq/L (23-29); Chloride 114 mEq/L (98-107); Glucose 121 mg/dL (70-105); Osmolality,Calculated 305 (280-300); Potassium 3.5 mEq/L (3.5-5.1); Sodium 144 mEq/L (136-145); eGFR For African Americans > 60 (> 60); eGFR For Non-African Americans > 60 (> 60)
[2021-05-09 04:59] LABS: INR 1.3; Prothrombin Time 14.9 Seconds (9.4-12.1)
[2021-05-09 05:01] LABS: Activated Partial Thrombo Time 30.5 Seconds (26.0-36.0)
[2021-05-09] MEDS ORDERED: Dextrose Gel 15 GM/37.5 ML TUBE PO PRN ×2 (10:21)
[2021-05-09] MEDS ORDERED: D5% in Water 1,000 ML IVC PRN (10:21)
[2021-05-09] MEDS ORDERED: *HR* Dextrose 50 % in Water (Syg) 50 ML SYRINGE IVP PRN (10:21)
[2021-05-09] MEDS ORDERED: *HR* LORazepam 2 MG/ML VIAL IVP PRN (10:24)
[2021-05-09 10:48] LABS: Magnesium 1.6 mg/dL (1.6-2.6); Phosphorous 2.3 mg/dL (2.7-4.5)
[2021-05-09] MEDS: Calcium Gluconate 1gm/50mL 1 GM/50 ML BAG IVPB SCH ×2 (11:43→12:15)
[2021-05-09] MEDS: QUEtiapine Fumarate 25 MG TABLET PO SCH ×2 (11:46→20:33)
[2021-05-09] MEDS: Lactobacillus 1 EACH CAP.SPRINK PO SCH (20:33)
[2021-05-09 22:33] LABS: Enterococcus by PCR DETECTED (Not Detect); vanA/B Vancomycin-Resist Genes DETECTED (Not Detect)
[2021-05-09 22:34] LABS: Acinetobacter baumannii by PCR Not Detected (Not Detect); Candida albicans by PCR Not Detected (Not Detect); Candida glabrata by PCR Not Detected (Not Detect); Candida krusei by PCR Not Detected (Not Detect); Candida parapsilosis by PCR Not Detected (Not Detect); Candida tropicalis by PCR Not Detected (Not Detect); Enterobacter cloacae Cmplx PCR Not Detected (Not Detect); Enterobacteriaceae by PCR Not Detected (Not Detect); Escherichia coli by PCR Not Detected (Not Detect); Klebsiella oxytoca by PCR Not Detected (Not Detect); Klebsiella pneumoniae by PCR Not Detected (Not Detect); Proteus by PCR Not Detected (Not Detect); Pseudomonas aeruginosa by PCR Not Detected (Not Detect); Serratia marcescens by PCR Not Detected (Not Detect); Staphylococcus aureus by PCR Not Detected (Not Detect); Staphylococcus by PCR Not Detected (Not Detect); Streptococcus agalactiae(B)PCR Not Detected (Not Detect); Streptococcus by PCR Not Detected (Not Detect); Streptococcus pneumoniae PCR Not Detected (Not Detect); Streptococcus pyogenes (A) PCR Not Detected (Not Detect)
[2021-05-09] MEDS ORDERED: *HR* LORazepam 2 MG/ML VIAL IVP ONE (23:38)
[2021-05-10] MEDS: *HR* LORazepam 2 MG/ML VIAL IVP ONE (00:10)
[2021-05-10] MEDS ORDERED: *HR* LORazepam 2 MG/ML VIAL IVP ONE ×2 (00:14→03:14)
[2021-05-10] MEDS ORDERED: Haloperidol Lactate 5 MG/ML VIAL IVP ONE (00:17)
[2021-05-10] MEDS: Levalbuterol Neb 1.25 MG/3 ML IH SCH ×6 (03:25→21:12)
[2021-05-10] MEDS ORDERED: MethylPREDNISolone 40 MG/ML VIAL IVP ONE (04:56)
[2021-05-10] MEDS: Piperacillin/Tazobactam 3.375 GM in 0.9 % Sodium Chloride Mini Bag 100 ML IVPB SCH ×2 (05:06→11:09)
[2021-05-10 05:20] LABS: ABG Base Excess -1 mEq/L (-2 to 3); ABG HCO3 23 mEq/L (21-27); ABG Oxygen Saturation 97 % (95-98); ABG PCO2 34 mmHg (35-45); ABG PH 7.44 pH Units (7.32-7.45); ABG PO2 85 mmHg (85-104); ABG TCO2 24 mEq/L (20-26)
[2021-05-10 08:30] LABS: Hematocrit 23.3 % (37.5-50.1); Hemoglobin 7.7 g/dL (12.9-16.9); Mean Corpuscular Hemoglobin 31.2 pg (28.0-33.3); Mean Corpuscular Volume 94.3 fL (83.0-100.0); Mean Platelet Volume 10.3 fL (9.4-12.4); Platelet Count 104 K/mcL (140-400); Red Blood Count 2.47 M/mcL (4.19-5.50); Red Cell Distribution Width 14.2 % (11.5-14.5); White Blood Count 11.9 K/mcL (4.3-11.1)
[2021-05-10 08:48] LABS: BUN/Creatinine Ratio 29 (6-26); Blood Urea Nitrogen 28 mg/dL (8-23); Calcium 8.3 mg/dL (8.6-10.3); Carbon Dioxide 23 mEq/L (23-29); Chloride 109 mEq/L (98-107); Glucose 117 mg/dL (70-105); Magnesium 2.2 mg/dL (1.6-2.6); Osmolality,Calculated 297 (280-300); Phosphorous 2.8 mg/dL (2.7-4.5); Potassium 3.9 mEq/L (3.5-5.1); Sodium 140 mEq/L (136-145); eGFR For African Americans > 60 (> 60); eGFR For Non-African Americans > 60 (> 60)
[2021-05-10 09:49] LABS: Lymphocytes # 0.5 K/mcL (0.6-4.6); Neutrophils # 11.2 K/mcL (1.6-8.9)
[2021-05-10 09:50] LABS: Platelet Estimate Decreased (Normal)
[2021-05-10] MEDS ORDERED: *HR* Metoprolol 5 MG/5 ML VIAL IVP ONE (10:08)
[2021-05-10] MEDS ORDERED: Perflutren Lipid Microsphere 1.3 ML in 0.9 % Sodium Chloride 8.7 ML IVP PRN (13:18)
[2021-05-10] MEDS: Nicotine 14 MG PATCH.TD24 TD SCH (13:35)
[2021-05-10] MEDS: Finasteride 5 MG TABLET PO SCH (15:46)
[2021-05-10] MEDS: Lactobacillus 1 EACH CAP.SPRINK PO SCH ×2 (15:46→20:10)
[2021-05-10] MEDS: QUEtiapine Fumarate 25 MG TABLET PO SCH ×2 (15:46→20:02)
[2021-05-10] MEDS: Multivit/Ca/Min/Fe/FA 1 TAB TABLET PO SCH (15:47)
[2021-05-10 19:22] LABS: Hematocrit 24.6 % (37.5-50.1); Hemoglobin 7.9 g/dL (12.9-16.9)
[2021-05-10] MEDS: carvediloL 6.25 MG TABLET PO SCH (20:02)
[2021-05-11] MEDS: Levalbuterol Neb 1.25 MG/3 ML IH SCH ×7 (00:10→23:09)
[2021-05-11 06:34] LABS: Basophils % 0.1 %; Hematocrit 24.2 % (37.5-50.1); Hemoglobin 7.7 g/dL (12.9-16.9); Immature Granulocytes % 0.8 % (0-4); Lymphocytes # 0.8 K/mcL (0.6-4.6); Lymphocytes % 6.3 %; Mean Corpuscular HGB Conc 31.8 g/dL (31.6-35.5); Mean Corpuscular Hemoglobin 29.8 pg (28.0-33.3); Mean Corpuscular Volume 93.8 fL (83.0-100.0); Mean Platelet Volume 10.4 fL (9.4-12.4); Monocytes # 0.6 K/mcL (0.0-1.3); Monocytes % 4.7 %; Neutrophils # 10.8 K/mcL (1.6-8.9); Platelet Count 102 K/mcL (140-400); Red Blood Count 2.58 M/mcL (4.19-5.50); Red Cell Distribution Width 14.2 % (11.5-14.5); Segmented Neutrophils % 88.1 %; White Blood Count 12.2 K/mcL (4.3-11.1)
[2021-05-11 06:49] LABS: BUN/Creatinine Ratio 35 (6-26); Blood Urea Nitrogen 27 mg/dL (8-23); Calcium 8.4 mg/dL (8.6-10.3); Carbon Dioxide 26 mEq/L (23-29); Chloride 109 mEq/L (98-107); Glucose 166 mg/dL (70-105); Magnesium 2.2 mg/dL (1.6-2.6); Osmolality,Calculated 297 (280-300); Phosphorous 2.3 mg/dL (2.7-4.5); Sodium 139 mEq/L (136-145); eGFR For African Americans > 60 (> 60); eGFR For Non-African Americans > 60 (> 60)
[2021-05-11] MEDS: Multivit/Ca/Min/Fe/FA 1 TAB TABLET PO SCH (08:25)
[2021-05-11] MEDS: Nicotine 14 MG PATCH.TD24 TD SCH (08:25)
[2021-05-11] MEDS: Finasteride 5 MG TABLET PO SCH (08:25)
[2021-05-11] MEDS: Lactobacillus 1 EACH CAP.SPRINK PO SCH ×3 (08:25→19:58)
[2021-05-11] MEDS: carvediloL 6.25 MG TABLET PO SCH ×2 (08:25→18:20)
[2021-05-11] MEDS: QUEtiapine Fumarate 25 MG TABLET PO SCH ×3 (08:26→19:58)
[2021-05-11] MEDS ORDERED: Haloperidol Lactate 5 MG/ML VIAL IM PRN (11:42)
[2021-05-11] MEDS: DAPTOmycin 350 MG in 0.9 % Sodium Chloride 100 ML IVPB SCH (18:09)
[2021-05-12 03:08] LABS: Basophils % 0.1 %; Eosinophils % 0.1 %; Hematocrit 26.9 % (37.5-50.1); Hemoglobin 8.9 g/dL (12.9-16.9); Immature Granulocytes % 0.7 % (0-4); Lymphocytes # 1.7 K/mcL (0.6-4.6); Lymphocytes % 12.9 %; Mean Corpuscular HGB Conc 33.1 g/dL (31.6-35.5); Mean Corpuscular Hemoglobin 30.8 pg (28.0-33.3); Mean Corpuscular Volume 93.1 fL (83.0-100.0); Mean Platelet Volume 10.3 fL (9.4-12.4); Monocytes # 0.5 K/mcL (0.0-1.3); Neutrophils # 10.9 K/mcL (1.6-8.9); Platelet Count 112 K/mcL (140-400); Red Blood Count 2.89 M/mcL (4.19-5.50); Red Cell Distribution Width 14.3 % (11.5-14.5); Segmented Neutrophils % 82.2 %; White Blood Count 13.2 K/mcL (4.3-11.1)
[2021-05-12 03:24] LABS: BUN/Creatinine Ratio 33 (6-26); Blood Urea Nitrogen 22 mg/dL (8-23); Calcium 8.3 mg/dL (8.6-10.3); Carbon Dioxide 28 mEq/L (23-29); Chloride 108 mEq/L (98-107); Glucose 139 mg/dL (70-105); Magnesium 1.9 mg/dL (1.6-2.6); Osmolality,Calculated 300 (280-300); Phosphorous 1.3 mg/dL (2.7-4.5); Potassium 4.2 mEq/L (3.5-5.1); Sodium 142 mEq/L (136-145); eGFR For African Americans > 60 (> 60); eGFR For Non-African Americans > 60 (> 60)
[2021-05-12] MEDS: Levalbuterol Neb 1.25 MG/3 ML IH SCH ×6 (04:24→23:29)
[2021-05-12] MEDS ORDERED: *HR* Metoprolol 5 MG/5 ML VIAL IVP ONE (06:17)
[2021-05-12] MEDS: Lactobacillus 1 EACH CAP.SPRINK PO SCH ×2 (08:53→19:52)
[2021-05-12] MEDS: carvediloL 6.25 MG TABLET PO SCH ×2 (08:53→16:13)
[2021-05-12] MEDS: Finasteride 5 MG TABLET PO SCH (08:54)
[2021-05-12] MEDS: Nicotine 14 MG PATCH.TD24 TD SCH (08:54)
[2021-05-12] MEDS: QUEtiapine Fumarate 25 MG TABLET PO SCH ×2 (08:54→19:52)
[2021-05-12] MEDS: Multivit/Ca/Min/Fe/FA 1 TAB TABLET PO SCH (08:54)
[2021-05-12] MEDS ORDERED: 0.9 % Sodium Chloride 1,000 ML IVC SCH (11:45)
[2021-05-12] MEDS: DAPTOmycin 350 MG in 0.9 % Sodium Chloride 100 ML IVPB SCH (18:03)
[2021-05-13 01:50] LABS: Basophils % 0.1 %; Eosinophils # 0.1 K/mcL (0.0-0.6); Eosinophils % 0.6 %; Hematocrit 25.1 % (37.5-50.1); Hemoglobin 8.1 g/dL (12.9-16.9); Immature Granulocytes % 0.5 % (0-4); Lymphocytes # 1.8 K/mcL (0.6-4.6); Mean Corpuscular HGB Conc 32.3 g/dL (31.6-35.5); Mean Corpuscular Hemoglobin 30.8 pg (28.0-33.3); Mean Corpuscular Volume 95.4 fL (83.0-100.0); Monocytes # 0.5 K/mcL (0.0-1.3); Monocytes % 6.2 %; Neutrophils # 5.8 K/mcL (1.6-8.9); Platelet Count 107 K/mcL (140-400); Red Blood Count 2.63 M/mcL (4.19-5.50); Red Cell Distribution Width 14.4 % (11.5-14.5); Segmented Neutrophils % 70.6 %; White Blood Count 8.3 K/mcL (4.3-11.1)
[2021-05-13 01:58] LABS: BUN/Creatinine Ratio 23 (6-26); Blood Urea Nitrogen 16 mg/dL (8-23); Carbon Dioxide 25 mEq/L (23-29); Chloride 110 mEq/L (98-107); Creatine Kinase 349 Units/L (30-223); Glucose 120 mg/dL (70-105); Magnesium 1.9 mg/dL (1.6-2.6); Osmolality,Calculated 296 (280-300); Phosphorous 2.3 mg/dL (2.7-4.5); Potassium 4.3 mEq/L (3.5-5.1); Sodium 142 mEq/L (136-145); eGFR For African Americans > 60 (> 60); eGFR For Non-African Americans > 60 (> 60)
[2021-05-13] MEDS: Levalbuterol Neb 1.25 MG/3 ML IH SCH ×5 (03:23→19:42)
[2021-05-13] MEDS: Nicotine 14 MG PATCH.TD24 TD SCH (10:43)
[2021-05-13] MEDS: Lactobacillus 1 EACH CAP.SPRINK PO SCH ×2 (10:43→20:22)
[2021-05-13] MEDS: carvediloL 6.25 MG TABLET PO SCH ×2 (10:43→17:14)
[2021-05-13] MEDS: Multivit/Ca/Min/Fe/FA 1 TAB TABLET PO SCH (10:44)
[2021-05-13] MEDS: Finasteride 5 MG TABLET PO SCH (10:44)
[2021-05-13] MEDS: QUEtiapine Fumarate 25 MG TABLET PO SCH ×2 (10:44→20:22)
[2021-05-13] MEDS ORDERED: Haloperidol Lactate 5 MG/ML VIAL IVP PRN ×2 (11:26→14:36)
[2021-05-13] MEDS ORDERED: Lidocaine Viscous Oral Soln 15 ML SOLUTION MM PRN (12:14)
[2021-05-13] MEDS ORDERED: 0.9 % Sodium Chloride 500 ML IVC ONE (12:15)
[2021-05-13] MEDS: *HR* FentaNYL (PF) 100 MCG/2 ML VIAL IVP PRN ×2 (12:50→12:55)
[2021-05-13] MEDS: *HR* Midazolam HCl 5 MG/5 ML VIAL IVP PRN ×2 (12:50→12:55)
[2021-05-13] MEDS: Gabapentin 300 MG CAPSULE PO SCH ×2 (16:43→20:22)
[2021-05-13] MEDS: DAPTOmycin 350 MG in 0.9 % Sodium Chloride 100 ML IVPB SCH (16:45)
[2021-05-13] MEDS: traZODone 50 MG TABLET PO SCH (20:22)
[2021-05-14] MEDS: Levalbuterol Neb 1.25 MG/3 ML IH SCH ×7 (00:29→23:55)
[2021-05-14] MEDS: Tiotropium 10 INH DOSE IH SCH (08:00)
[2021-05-14] MEDS: carvediloL 6.25 MG TABLET PO SCH ×2 (08:45→16:32)
[2021-05-14] MEDS: Lactobacillus 1 EACH CAP.SPRINK PO SCH ×2 (08:45→21:45)
[2021-05-14] MEDS: Finasteride 5 MG TABLET PO SCH (08:45)
[2021-05-14] MEDS: QUEtiapine Fumarate 25 MG TABLET PO SCH ×2 (08:45→21:45)
[2021-05-14] MEDS: Multivit/Ca/Min/Fe/FA 1 TAB TABLET PO SCH (08:45)
[2021-05-14] MEDS: Nicotine 14 MG PATCH.TD24 TD SCH (08:46)
[2021-05-14] MEDS: Gabapentin 300 MG CAPSULE PO SCH ×3 (08:46→21:45)
[2021-05-14] MEDS ORDERED: NON-FORMULARY MEDICATION 1 EACH EACH (Pravastatin Sodium [Pravachol] 80 MG Tablet) PO SCH (09:00)
[2021-05-14] MEDS: DAPTOmycin 350 MG in 0.9 % Sodium Chloride 100 ML IVPB SCH (16:32)
[2021-05-14] MEDS: traZODone 50 MG TABLET PO SCH (21:45)
[2021-05-15] MEDS: Levalbuterol Neb 1.25 MG/3 ML IH SCH ×6 (04:58→23:51)
[2021-05-15] MEDS: Nicotine 14 MG PATCH.TD24 TD SCH (09:58)
[2021-05-15] MEDS: Lactobacillus 1 EACH CAP.SPRINK PO SCH ×2 (10:00→21:11)
[2021-05-15] MEDS: Multivit/Ca/Min/Fe/FA 1 TAB TABLET PO SCH (10:00)
[2021-05-15] MEDS: Gabapentin 300 MG CAPSULE PO SCH ×3 (10:00→21:11)
[2021-05-15] MEDS: QUEtiapine Fumarate 25 MG TABLET PO SCH ×2 (10:00→21:11)
[2021-05-15] MEDS: carvediloL 6.25 MG TABLET PO SCH ×2 (10:00→16:42)
[2021-05-15] MEDS: Finasteride 5 MG TABLET PO SCH (10:06)
[2021-05-15] MEDS: Tiotropium 10 INH DOSE IH SCH (10:34)
[2021-05-15] MEDS: DAPTOmycin 350 MG in 0.9 % Sodium Chloride 100 ML IVPB SCH (16:42)
[2021-05-15] MEDS: traZODone 50 MG TABLET PO SCH (21:11)
[2021-05-15] MEDS: Apixaban 5 MG TABLET PO SCH (21:11)
[2021-05-16] MEDS: Levalbuterol Neb 1.25 MG/3 ML IH SCH ×5 (04:19→20:25)
[2021-05-16 04:49] LABS: Hemoglobin 8.4 g/dL (12.9-16.9)
[2021-05-16] MEDS: Tiotropium 10 INH DOSE IH SCH (07:40)
[2021-05-16] MEDS: QUEtiapine Fumarate 25 MG TABLET PO SCH ×2 (08:06→19:47)
[2021-05-16] MEDS: Finasteride 5 MG TABLET PO SCH (08:06)
[2021-05-16] MEDS: Gabapentin 300 MG CAPSULE PO SCH ×3 (08:07→19:46)
[2021-05-16] MEDS: Multivit/Ca/Min/Fe/FA 1 TAB TABLET PO SCH (08:07)
[2021-05-16] MEDS: Lactobacillus 1 EACH CAP.SPRINK PO SCH ×2 (08:07→19:46)
[2021-05-16] MEDS: carvediloL 6.25 MG TABLET PO SCH ×2 (08:07→16:39)
[2021-05-16] MEDS: Apixaban 5 MG TABLET PO SCH (08:07)
[2021-05-16] MEDS: Nicotine 14 MG PATCH.TD24 TD SCH (08:10)
[2021-05-16] MEDS: DAPTOmycin 350 MG in 0.9 % Sodium Chloride 100 ML IVPB SCH (15:27)
[2021-05-16] MEDS: Apixaban 2.5 MG TABLET PO SCH (19:46)
[2021-05-16] MEDS: traZODone 50 MG TABLET PO SCH (22:49)
[2021-05-17] MEDS: Levalbuterol Neb 1.25 MG/3 ML IH SCH ×3 (00:03→09:03)
[2021-05-17] MEDS: Tiotropium 10 INH DOSE IH SCH (09:05)
[2021-05-17] MEDS: carvediloL 6.25 MG TABLET PO SCH ×2 (09:07→16:16)
[2021-05-17] MEDS: Lactobacillus 1 EACH CAP.SPRINK PO SCH ×2 (09:09→20:57)
[2021-05-17] MEDS: Apixaban 2.5 MG TABLET PO SCH ×2 (09:09→20:57)
[2021-05-17] MEDS: Finasteride 5 MG TABLET PO SCH (09:09)
[2021-05-17] MEDS: Gabapentin 300 MG CAPSULE PO SCH ×3 (09:09→21:45)
[2021-05-17] MEDS: QUEtiapine Fumarate 25 MG TABLET PO SCH ×2 (09:09→20:57)
[2021-05-17] MEDS: Multivit/Ca/Min/Fe/FA 1 TAB TABLET PO SCH (09:09)
[2021-05-17] MEDS: Nicotine 14 MG PATCH.TD24 TD SCH (09:10)
[2021-05-17] MEDS ORDERED: Levalbuterol Neb 1.25 MG/3 ML IH PRN (09:47)
[2021-05-17] MEDS: DAPTOmycin 350 MG in 0.9 % Sodium Chloride 100 ML IVPB SCH (16:53)
[2021-05-17] MEDS: traZODone 50 MG TABLET PO SCH (20:57)
[2021-05-18] MEDS: Gabapentin 300 MG CAPSULE PO SCH ×3 (09:57→19:33)
[2021-05-18] MEDS: Lactobacillus 1 EACH CAP.SPRINK PO SCH ×2 (09:58→19:33)
[2021-05-18] MEDS: Apixaban 2.5 MG TABLET PO SCH ×2 (09:59→19:33)
[2021-05-18] MEDS: carvediloL 6.25 MG TABLET PO SCH ×2 (09:59→16:57)
[2021-05-18] MEDS: Nicotine 14 MG PATCH.TD24 TD SCH (09:59)
[2021-05-18] MEDS: QUEtiapine Fumarate 25 MG TABLET PO SCH ×2 (09:59→19:32)
[2021-05-18] MEDS: Multivit/Ca/Min/Fe/FA 1 TAB TABLET PO SCH (09:59)
[2021-05-18] MEDS: Finasteride 5 MG TABLET PO SCH (09:59)
[2021-05-18] MEDS: Tiotropium 10 INH DOSE IH SCH (12:08)
[2021-05-18] MEDS: DAPTOmycin 350 MG in 0.9 % Sodium Chloride 100 ML IVPB SCH (16:54)
[2021-05-18] MEDS: traZODone 50 MG TABLET PO SCH (19:33)
[2021-05-19] MEDS: carvediloL 6.25 MG TABLET PO SCH ×2 (08:49→16:16)
[2021-05-19] MEDS: Multivit/Ca/Min/Fe/FA 1 TAB TABLET PO SCH (08:49)
[2021-05-19] MEDS: QUEtiapine Fumarate 25 MG TABLET PO SCH ×2 (08:50→19:43)
[2021-05-19] MEDS: Apixaban 2.5 MG TABLET PO SCH ×2 (08:50→19:43)
[2021-05-19] MEDS: Gabapentin 300 MG CAPSULE PO SCH ×3 (08:50→19:43)
[2021-05-19] MEDS: Finasteride 5 MG TABLET PO SCH (08:50)
[2021-05-19] MEDS: Nicotine 14 MG PATCH.TD24 TD SCH (08:50)
[2021-05-19] MEDS: Lactobacillus 1 EACH CAP.SPRINK PO SCH ×2 (08:50→19:54)
[2021-05-19] MEDS: Tiotropium 10 INH DOSE IH SCH (09:51)
[2021-05-19] MEDS: DAPTOmycin 350 MG in 0.9 % Sodium Chloride 100 ML IVPB SCH (17:28)
[2021-05-19] MEDS: traZODone 50 MG TABLET PO SCH (19:42)
[2021-05-20] MEDS: Tiotropium 10 INH DOSE IH SCH (07:27)
[2021-05-20] MEDS: carvediloL 6.25 MG TABLET PO SCH ×2 (09:47→15:54)
[2021-05-20] MEDS: Nicotine 14 MG PATCH.TD24 TD SCH (09:47)
[2021-05-20] MEDS: Finasteride 5 MG TABLET PO SCH (09:48)
[2021-05-20] MEDS: Lactobacillus 1 EACH CAP.SPRINK PO SCH (09:48)
[2021-05-20] MEDS: Apixaban 2.5 MG TABLET PO SCH (09:48)
[2021-05-20] MEDS: QUEtiapine Fumarate 25 MG TABLET PO SCH (09:48)
[2021-05-20] MEDS: Gabapentin 300 MG CAPSULE PO SCH ×2 (09:48→13:36)
[2021-05-20] MEDS: Multivit/Ca/Min/Fe/FA 1 TAB TABLET PO SCH (09:48)
[2021-05-20 11:32] VITALS: BP 102/41; PULSE 59; TEMP 97.5; O2SAT 91
[2021-05-20 14:41] LABS: Adenovirus Not Detected (Not Detect); Coronavirus 229E Not Detected (Not Detect); Coronavirus HKU1 Not Detected (Not Detect); Coronavirus NL63 Not Detected (Not Detect); Coronavirus OC43 Not Detected (Not Detect); Human Metapneumovirus Not Detected (Not Detect); Human Rhinovirus/Enterovirus Not Detected (Not Detect); SARS-CoV-2 Not Detected (Not Detect)
[2021-05-20 14:42] LABS: Bordetella Pertussis Not Detected (Not Detect); Chlamydophila pneumoniae Not Detected (Not Detect); Influenza A Subtype 2009 H1 Not Detected (Not Detect); Influenza B Not Detected (Not Detect); Mycoplasma pneumoniae Not Detected (Not Detect); Parainfluenza Virus 1 Not Detected (Not Detect); Parainfluenza Virus 2 Not Detected (Not Detect); Parainfluenza Virus 3 Not Detected (Not Detect); Parainfluenza Virus 4 Not Detected (Not Detect); Respiratory Syncytial Virus Not Detected (Not Detect)
== END 2021-05-20 18:30 | DRG 871 ==
LOC: 3BNU 19:42 → EMEROOARM 19:42 → SUATTDRO 05-09 01:52 → 3BNU 05-09 02:35 → SUATTDRO 05-09 15:17
PROVIDERS: ADMIT Student in an Organized Health Care Education/Training Program; ATTEND Internal Medicine

== ENCOUNTER 2021-08-13 12:20 | Inpatient (IN) ==
[2021-08-13] MEDS: 0.9 % Sodium Chloride 1,000 ML IVC SCH ×2 (13:23→21:26)
[2021-08-13] MEDS ORDERED: *HR* FentaNYL (PF) 100 MCG/2 ML VIAL IVP ONE (13:33)
[2021-08-13 13:35] LABS: Basophils % 0.4 %; Eosinophils # 0.1 K/mcL (0.0-0.6); Eosinophils % 0.9 %; Hematocrit 29.4 % (37.5-50.1); Immature Granulocytes % 0.4 % (0-4); Lymphocytes # 1.9 K/mcL (0.6-4.6); Lymphocytes % 35.9 %; Mean Corpuscular HGB Conc 30.6 g/dL (31.6-35.5); Mean Corpuscular Hemoglobin 26.4 pg (28.0-33.3); Mean Corpuscular Volume 86.2 fL (83.0-100.0); Mean Platelet Volume 9.8 fL (9.4-12.4); Monocytes # 0.5 K/mcL (0.0-1.3); Monocytes % 8.3 %; Neutrophils # 2.9 K/mcL (1.6-8.9); Platelet Count 195 K/mcL (140-400); Red Blood Count 3.41 M/mcL (4.19-5.50); Red Cell Distribution Width 14.1 % (11.5-14.5); Segmented Neutrophils % 54.1 %; White Blood Count 5.4 K/mcL (4.3-11.1)
[2021-08-13 13:43] LABS: INR 1.3; Prothrombin Time 14.7 Seconds (9.4-12.1)
[2021-08-13 13:46] LABS: Activated Partial Thrombo Time 34.6 Seconds (26.0-36.0)
[2021-08-13 13:58] LABS: BUN/Creatinine Ratio 27 (6-26); Blood Urea Nitrogen 20 mg/dL (8-23); Calcium 8.5 mg/dL (8.6-10.3); Carbon Dioxide 27 mEq/L (23-29); Chloride 110 mEq/L (98-107); Glucose 107 mg/dL (70-105); Osmolality,Calculated 291 (280-300); Potassium 4.6 mEq/L (3.5-5.1); Sodium 139 mEq/L (136-145); eGFR For African Americans > 60 (> 60); eGFR For Non-African Americans > 60 (> 60)
[2021-08-13] MEDS ORDERED: 0.9 % Sodium Chloride 500 ML IVC ONE (15:40)
[2021-08-13] MEDS ORDERED: Naloxone 0.4 MG/ML INJ IVP PRN (17:03)
[2021-08-13] MEDS ORDERED: Haloperidol Lactate 5 MG/ML VIAL IVP PRN (17:21)
[2021-08-13] MEDS ORDERED: Acetaminophen 325 MG TABLET PO PRN (17:42)
[2021-08-13] MEDS ORDERED: Ipratropium/Albuterol Neb 3 ML IH PRN (17:42)
[2021-08-13] MEDS: carvediloL 6.25 MG TABLET PO SCH (20:40)
[2021-08-13] MEDS: traZODone 50 MG TABLET PO SCH ×2 (21:26→21:38)
[2021-08-13] MEDS: Gabapentin 300 MG CAPSULE PO SCH ×3 (21:26→21:43)
[2021-08-14] MEDS: 0.9 % Sodium Chloride 1,000 ML IVC SCH ×2 (05:20→17:35)
[2021-08-14 07:28] LABS: Hematocrit 20.1 % (37.5-50.1); Immature Granulocytes % 0.5 % (0-4); Lymphocytes # 1.7 K/mcL (0.6-4.6); Lymphocytes % 15.2 %; Mean Corpuscular HGB Conc 29.9 g/dL (31.6-35.5); Mean Corpuscular Hemoglobin 25.6 pg (28.0-33.3); Mean Corpuscular Volume 85.9 fL (83.0-100.0); Mean Platelet Volume 9.8 fL (9.4-12.4); Monocytes # 0.7 K/mcL (0.0-1.3); Monocytes % 6.5 %; Neutrophils # 8.6 K/mcL (1.6-8.9); Nucleated Red Blood Cells 0.2 /100 WBC (0); Platelet Count 150 K/mcL (140-400); Red Blood Count 2.34 M/mcL (4.19-5.50); Red Cell Distribution Width 14.3 % (11.5-14.5); Segmented Neutrophils % 77.8 %
[2021-08-14] MEDS: Tiotropium 10 INH DOSE IH SCH (07:49)
[2021-08-14] MEDS ORDERED: 0.9 % Sodium Chloride 250 ML IVC SCH (08:15)
[2021-08-14] MEDS: Gabapentin 300 MG CAPSULE PO SCH ×4 (09:18→20:44)
[2021-08-14] MEDS: carvediloL 6.25 MG TABLET PO SCH ×3 (09:19→20:44)
[2021-08-14 09:46] LABS: Hematocrit 23.1 % (37.5-50.1); Hemoglobin 6.2 g/dL (12.9-16.9)
[2021-08-14 10:13] LABS: BUN/Creatinine Ratio 25 (6-26); Blood Urea Nitrogen 28 mg/dL (8-23); Calcium 8.1 mg/dL (8.6-10.3); Carbon Dioxide 25 mEq/L (23-29); Chloride 111 mEq/L (98-107); Glucose 134 mg/dL (70-105); Osmolality,Calculated 301 (280-300); Potassium 4.4 mEq/L (3.5-5.1); Sodium 142 mEq/L (136-145); eGFR For African Americans > 60 (> 60); eGFR For Non-African Americans > 60 (> 60)
[2021-08-14 17:53] LABS: Hematocrit 24.2 % (37.5-50.1); Hemoglobin 7.4 g/dL (12.9-16.9)
[2021-08-14] MEDS: traZODone 50 MG TABLET PO SCH ×2 (20:38→20:45)
[2021-08-15] MEDS: 0.9 % Sodium Chloride 1,000 ML IVC SCH ×2 (03:49→09:04)
[2021-08-15 04:41] LABS: Hematocrit 20.5 % (37.5-50.1); Hemoglobin 6.5 g/dL (12.9-16.9); Mean Corpuscular HGB Conc 31.7 g/dL (31.6-35.5); Mean Corpuscular Hemoglobin 27.1 pg (28.0-33.3); Mean Corpuscular Volume 85.4 fL (83.0-100.0); Mean Platelet Volume 10.2 fL (9.4-12.4); Platelet Count 111 K/mcL (140-400); Red Cell Distribution Width 14.7 % (11.5-14.5)
[2021-08-15 04:42] LABS: White Blood Count 10.2 K/mcL (4.3-11.1)
[2021-08-15 05:00] LABS: BUN/Creatinine Ratio 31 (6-26); Blood Urea Nitrogen 25 mg/dL (8-23); Calcium 7.8 mg/dL (8.6-10.3); Carbon Dioxide 27 mEq/L (23-29); Chloride 113 mEq/L (98-107); Glucose 91 mg/dL (70-105); Osmolality,Calculated 296 (280-300); Potassium 3.6 mEq/L (3.5-5.1); Sodium 141 mEq/L (136-145); eGFR For African Americans > 60 (> 60); eGFR For Non-African Americans > 60 (> 60)
[2021-08-15] MEDS: Tiotropium 10 INH DOSE IH SCH (07:29)
[2021-08-15] MEDS ORDERED: 0.9 % Sodium Chloride 250 ML IVC SCH (08:00)
[2021-08-15] MEDS: Gabapentin 300 MG CAPSULE PO SCH ×4 (09:02→21:41)
[2021-08-15] MEDS: Finasteride 5 MG TABLET PO SCH (09:02)
[2021-08-15] MEDS ORDERED: 0.9 % Sodium Chloride 500 ML IVC ONE (13:32)
[2021-08-15 16:01] LABS: Bacteria,Urine Few per hpf (None-Few); Bilirubin,Urine Negative (Negative); Blood,Urine Moderate (Negative); Clarity,Urine Turbid (Clear); Color,Urine Yellow (Yellow); Glucose,Urine (UA) Normal (Normal); Ketones,Urine Negative (Negative); Leukocyte Esterase,Urine Large (Negative); Mucus,Urine Few per lpf (None-Few); Nitrite,Urine Positive (Negative); PH,Urine 5.5 pH Units (5.0-8.0); Protein,Urine 70 mg/dL (Neg-Trace); RBC,Urine 30-50 per hpf (0-3); Specific Gravity,Urine 1.022 (1.010-1.025); Urobilinogen,Urine Normal (Normal); WBC,Urine TNTC per hpf (0-3)
[2021-08-15 16:39] LABS: Hematocrit 26.7 % (37.5-50.1)
[2021-08-15 16:43] LABS: Hemoglobin 8.3 g/dL (12.9-16.9)
[2021-08-15] MEDS ORDERED: Apixaban 5 MG TABLET PO SCH (21:00)
[2021-08-15 21:24] LABS: Hematocrit 26.2 % (37.5-50.1); Hemoglobin 8.2 g/dL (12.9-16.9)
[2021-08-15] MEDS: traZODone 50 MG TABLET PO SCH (21:30)
[2021-08-16 02:28] LABS: Hematocrit 25.8 % (37.5-50.1); Hemoglobin 8.2 g/dL (12.9-16.9); Mean Corpuscular HGB Conc 31.8 g/dL (31.6-35.5); Mean Corpuscular Hemoglobin 28.2 pg (28.0-33.3); Mean Corpuscular Volume 88.7 fL (83.0-100.0); Mean Platelet Volume 10.2 fL (9.4-12.4); Platelet Count 111 K/mcL (140-400); Red Blood Count 2.91 M/mcL (4.19-5.50); Red Cell Distribution Width 14.8 % (11.5-14.5); White Blood Count 8.2 K/mcL (4.3-11.1)
[2021-08-16 02:48] LABS: BUN/Creatinine Ratio 26 (6-26); Blood Urea Nitrogen 18 mg/dL (8-23); Calcium 7.7 mg/dL (8.6-10.3); Carbon Dioxide 24 mEq/L (23-29); Chloride 112 mEq/L (98-107); Glucose 106 mg/dL (70-105); Osmolality,Calculated 294 (280-300); Potassium 3.2 mEq/L (3.5-5.1); Sodium 141 mEq/L (136-145); eGFR For African Americans > 60 (> 60); eGFR For Non-African Americans > 60 (> 60)
[2021-08-16] MEDS: Apixaban 5 MG TABLET PO SCH ×2 (09:14→20:19)
[2021-08-16] MEDS: Finasteride 5 MG TABLET PO SCH (09:14)
[2021-08-16] MEDS: Gabapentin 300 MG CAPSULE PO SCH ×3 (09:14→20:19)
[2021-08-16] MEDS: Tiotropium 10 INH DOSE IH SCH (10:31)
[2021-08-16] MEDS: Piperacillin/Tazobactam 3.375 GM in 0.9 % Sodium Chloride Mini Bag 100 ML IVPB SCH ×2 (15:01→23:20)
[2021-08-16] MEDS: traZODone 50 MG TABLET PO SCH (20:19)
[2021-08-17 04:45] LABS: Hematocrit 25.8 % (37.5-50.1); Hemoglobin 8.1 g/dL (12.9-16.9); Mean Corpuscular HGB Conc 31.4 g/dL (31.6-35.5); Mean Corpuscular Hemoglobin 27.4 pg (28.0-33.3); Mean Corpuscular Volume 87.2 fL (83.0-100.0); Mean Platelet Volume 10.2 fL (9.4-12.4); Platelet Count 126 K/mcL (140-400); Red Blood Count 2.96 M/mcL (4.19-5.50); Red Cell Distribution Width 14.9 % (11.5-14.5); White Blood Count 7.7 K/mcL (4.3-11.1)
[2021-08-17 05:01] LABS: BUN/Creatinine Ratio 13 (6-26); Blood Urea Nitrogen 10 mg/dL (8-23); Carbon Dioxide 26 mEq/L (23-29); Chloride 112 mEq/L (98-107); Glucose 107 mg/dL (70-105); Osmolality,Calculated 296 (280-300); Potassium 3.6 mEq/L (3.5-5.1); Sodium 143 mEq/L (136-145); eGFR For African Americans > 60 (> 60); eGFR For Non-African Americans > 60 (> 60)
[2021-08-17] MEDS: Tiotropium 10 INH DOSE IH SCH (08:04)
[2021-08-17] MEDS: Apixaban 5 MG TABLET PO SCH ×2 (08:23→21:26)
[2021-08-17] MEDS: Finasteride 5 MG TABLET PO SCH (08:23)
[2021-08-17] MEDS: Gabapentin 300 MG CAPSULE PO SCH ×3 (08:23→21:26)
[2021-08-17] MEDS: Piperacillin/Tazobactam 3.375 GM in 0.9 % Sodium Chloride Mini Bag 100 ML IVPB SCH ×2 (08:23→16:49)
[2021-08-17] MEDS: traZODone 50 MG TABLET PO SCH (21:26)
[2021-08-18] MEDS: Piperacillin/Tazobactam 3.375 GM in 0.9 % Sodium Chloride Mini Bag 100 ML IVPB SCH ×2 (00:22→09:32)
[2021-08-18 05:45] LABS: Basophils % 0.3 %; Eosinophils # 0.2 K/mcL (0.0-0.6); Eosinophils % 2.6 %; Hematocrit 26.1 % (37.5-50.1); Hemoglobin 8.4 g/dL (12.9-16.9); Immature Granulocytes % 0.3 % (0-4); Lymphocytes % 29.7 %; Mean Corpuscular HGB Conc 32.2 g/dL (31.6-35.5); Mean Corpuscular Hemoglobin 28.1 pg (28.0-33.3); Mean Corpuscular Volume 87.3 fL (83.0-100.0); Mean Platelet Volume 9.8 fL (9.4-12.4); Monocytes # 0.7 K/mcL (0.0-1.3); Monocytes % 10.1 %; Neutrophils # 3.8 K/mcL (1.6-8.9); Platelet Count 145 K/mcL (140-400); Red Blood Count 2.99 M/mcL (4.19-5.50); White Blood Count 6.6 K/mcL (4.3-11.1)
[2021-08-18 06:05] LABS: Anisocytosis 1+ (Not Present); Platelet Estimate Normal (Normal); Reactive Lymphocytes Present (Not Present)
[2021-08-18] MEDS: Tiotropium 10 INH DOSE IH SCH (07:59)
[2021-08-18] MEDS: Finasteride 5 MG TABLET PO SCH (09:31)
[2021-08-18] MEDS: Gabapentin 300 MG CAPSULE PO SCH (09:31)
[2021-08-18] MEDS: Apixaban 5 MG TABLET PO SCH (09:32)
[2021-08-18] MEDS ORDERED: Cefdinir 300 MG CAPSULE PO SCH (09:45)
[2021-08-18 11:05] VITALS: BP 138/61; PULSE 66; TEMP 98.3; O2SAT 96
[2021-08-18] MEDS ORDERED: Moderna Covid-19 Vaccine 100MCG/0.5mL IM ONE (13:15)
[2021-08-18] MEDS ORDERED: FLU Vac QV 21-22 (6Month+)/PF 0.5 ML SYRINGE IM ONE (13:15)
== END 2021-08-18 14:36 | disposition home or self-care (01) | DRG 699 ==
LOC: EMEROOARM 12:20 → 3ANU 12:20 → SUATTDRO 16:07 → 3ANU 17:35 → SUATTDRO 08-14 13:20
PROVIDERS: ADMIT Student in an Organized Health Care Education/Training Program; ATTEND Internal Medicine